=== PATIENT | female | born 1940 | race Caucasian/White ===

== ENCOUNTER 2021-02-25 11:00 | Inpatient (IN) ==
--- NOTE | 2021-02-25 11:16 | Emergency Department Note ---
Impression & Plan Fever, Falls, Confusion, Hypomagnesemia, Cough ED Provider Note Provider: Dany Rogel MD DATE OF SERVICE: 02/25/2021 CHIEF COMPLAINT: Fall, cough HISTORY OF PRESENT ILLNESS: Patient is a 80-year-old female presenting here via ambulance from home today after a fall. Patient states that she had a fall this morning when walking. Patient denies to the best of her knowledge using anticoagulants or antiplatelet agents. She complains of mild headache. She states she fell backwards but does not believe she struck her head. Denies loss of consciousness. Complaining of a little bit of back pain again mild headache. Denies dizziness. May be a little bit of nausea. Patient found by nursing staff to be febrile but she denies any fevers at home. Does report several days of a cough. Denies sick contacts. Denies new pain in the hips, abdomen, or across the front of the chest. Denies difficulty breathing. Patient states that her son helped her up and she is able to walk some since then but felt weak. Patient states she is recently changed doctors and see somebody in town but is unable to remember their name. Patient evidently has recently moved to the area from [place] and is just establishing care with [facility] here and now living with her son. Her son reports some history of CKD. REVIEW OF SYSTEMS: A total of 10 review of systems was obtained and negative except as stated above in the HPI. PAST MEDICAL HISTORY: As noted above MEDICATIONS: Patient denies use of anticoagulants or antiplatelet agents SOCIAL HISTORY: Lives at home with son, reports that she is not a smoker PHYSICAL EXAM: GENERAL: alert and oriented in no acute distress on stretcher although not the best historian regarding her past medical history and quite fatigued in appea sana Head: normocephalic and atraumatic EYES: No injection, discharge or icterus. PERRL NECK: Trachea midline. Supple. ENT: Mucous membranes pink and moist. LUNGS: Airway patent. No retractions. Breath sounds clear anteriorly but occasionally coughing HEART: Regular rate and rhythm. No chest wall tenderness ABDOMEN: Soft and non-tender, without guarding or rebound. BACK: No bilateral flank tenderness. SKIN: Acyanotic, warm, dry EXTREMITIES: Without swelling, tenderness or deformity except for just under a centimeter skin tear abrasion of the right proximal upper leg and some slight ed rohit of the right foot with a healing contusion over the top of the foot approximately 2 cm in size. NEUROLOGICAL: No focal deficits moving all extremities. No aphasia. No facial droop or slurred speech. Sensation to gross touch normal. EK bpm sinus tachycardia. No PVC or PAC. No acute ST segment elevation with some lateral ST flattening. QTc 443. CONTINUOUS CARDIAC MONITORING: was ordered and showed a heart rate of 80s to 100s bpm in normal sinus rhythm to sinus tachycardia GCS 15. Patient's laboratory studies and imaging reviewed. Differential includes Fracture, dislocation, contusion, intra-abdominal, pneumothorax, intrathoracic, intracranial, neurologic, compartment syndrome, rhabdomyolysis, infectious etiology as well as other pathologies. IMPRESSION/MEDICAL DECISION MAKING: Patient found to be febrile upon arrival with a bit of a cough. Not hypoxic. Evidently had a fall this morning. In the reports has had several minimal falls the last several days. Some minimal abrasion of the right anterior leg but soft compartments here and I doubt any compartment syndrome or bony injury. Not having significant focal deficit this time although not the best historian to recent events. Given a little bit of Tylenol here. Given the fall and a complaint of some back and head pain CTs of the head, cervical spine, chest, abdomen pelvis were obtained. Basic blood work and urine sample was ordered. Covid testing was ordered. Covid testing was negative likely. White count of 11.59 noted. Lactate elevated 2.3. Creatinine of 1.6 but unsure of her baseline. Troponin is not elevated. Bilirubin not elevated. Magnesium is low at 1.4 and IV supplementation was ordered. Thyroid function within normal limits. Lipase within normal limits. CT per radiology of the head, cervical spine, chest, and abdomen pelvis without acute traumatic injuries noted. 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 Patient with some distended gallbladder on the CT but benign abdominal exam and doubt cholecystitis with this. Patient not having elevated lipase and doubt this represents a pancreatitis. Several ureteral calculi are noted without hydronephrosis and the patient denies significant pain like prior history of kidney stones. Urine sample to be obtained to exclude UTI. This was not impressive. Patient's son reports that the patient's had multiple falls recently is acting more confused. Updated regarding her testing thus far but given her fevers feel that care here at the hospital given her falls and confusion would be beneficial. I do not feel at this time she suffering from meningitis. Will cover empirically with ceftriaxone given fever and question of some possible significant chills and possibly rigors by description of the son earlier. Again blood cultures have already been obtained. Patient on reassessment much more alert and appears to be expanding well to some fluid hydration and in a pretty control with the Tylenol. She was agreed with the plan for further observation here in the hospital and the hospitalist was contacted. DIAGNOSIS: Falls, confusion, fever, cough, hypomagnesemia DISPOSITION: Hospitalist will evaluate Patient was agreeable with this plan. Past Med/Surg History Medical History (Updated 02/25/21 @ 19:28 by Dany Rogel M.D.) Arthritis Gastric ulcer HTN (hypertension) Hypothyroidism Kidney stone Shoulder pain Social History Smoking Status: Never smoker Second Hand Exposure: No; Do You Dip or Chew Tobacco: No; Tobacco Cessation Education Requested by Patient: No Hx Alcohol Use: No Hx Substance Use: No Preferred Language: Urdu Communication Ability: Impaired Communication Ability Comment: patient is very lethargic at admission Lotus Notes Developer Required: No Beliefs That Will Affect Care: None Current Living Situation: Family Feels Safe at Home: Yes Safety Concerns: Feels Safe At This Time Assistive Devices: Walker Assistive Devices Comment: left at home Allergies Allergies Allergy/AdvReac Type Severity Reaction Status Date / Time Penicillins Allergy Intermediate Hives Unverified 02/25/21 11:30 metronidazole [From Flagyl] Allergy Mild Nausea Unverified 02/25/21 11:31 Home Meds Home Medications Medication Instructions Recorded Confirmed alprazolam 0.5 mg tablet (Xanax) 0.5 mg PO HS PRN 02/25/21 02/25/21 insulin degludec 100 unit/mL (3 0 unit SUBCUT DIRECTED 02/25/21 02/25/21 mL) subcutaneous pen (Tresiba FlexTouch U-100 insulin) levothyroxine 100 mcg tablet 100 mcg PO QAM 02/25/21 02/25/21 metoprolol tartrate 100 mg tablet 100 mg PO BID 02/25/21 02/25/21 omeprazole 40 mg capsule,delayed 40 mg PO DAILY 02/25/21 02/25/21 release valsartan 320 1 tab PO DAILY 02/25/21 02/25/21 mg-hydrochlorothiazide 25 mg tablet Results & Data (ED) Vital Signs Vital Signs - 24 hr 02/25/21 11:06 02/25/21 11:08 02/25/21 11:30 Temperature 38.7 C H Temperature Source Oral Pulse Rate 89 89 93 H Pulse Rate from SpO2 Sensor 93 H Pulse Rhythm Regular Respiratory Rate 29 H 20 25 H Respiratory Effort / Characteristics Non-Labored Spontaneous Respiratory Depth Normal Respiratory Pattern Regular Blood Pressure 158/67 H Blood Pressure Mean 97 Blood Pressure Position Sitting Pulse Oximetry 95 95 Oxygen Delivery Method Room Air Sepsis Recent Fever Within 48 Hours Yes Sepsis New/Unexplained Change in Mental Status Yes Sepsis Action Taken by Nursing Physician Notified 02/25/21 12:06 02/25/21 12:30 02/25/21 13:00 Temperature Temperature Source Pulse Rate 95 H 91 H 89 Pulse Rate from SpO2 Sensor 91 H 89 Pulse Rhythm Respiratory Rate 29 H 25 H Respiratory Effort / Characteristics Respiratory Depth Respiratory Pattern Blood Pressure 125/54 L Blood Pressure Mean 77 Blood Pressure Position Pulse Oximetry 94 92 Oxygen Delivery Method Sepsis Recent Fever Within 48 Hours Sepsis New/Unexplained Change in Mental Status Sepsis Action Taken by Nursing 02/25/21 13:30 02/25/21 14:00 02/25/21 14:30 Temperature Temperature Source Pulse Rate 88 82 Pulse Rate from SpO2 Sensor 89 88 82 Pulse Rhythm Respiratory Rate 15 24 Respiratory Effort / Characteristics Respiratory Depth Respiratory Pattern Blood Pressure 125/59 L Blood Pressure Mean 81 Blood Pressure Position Pulse Oximetry 91 96 95 Oxygen Delivery Method Sepsis Recent Fever Within 48 Hours Sepsis New/Unexplained Change in Mental Status Sepsis Action Taken by Nursing 02/25/21 15:00 Temperature Temperature Source Pulse Rate 83 Pulse Rate from SpO2 Sensor 83 Pulse Rhythm Respiratory Rate 24 Respiratory Effort / Characteristics Respiratory Depth Respiratory Pattern Blood Pressure 138/54 L Blood Pressure Mean 82 Blood Pressure Position Pulse Oximetry 98 Oxygen Delivery Method Sepsis Recent Fever Within 48 Hours Sepsis New/Unexplained Change in Mental Status Sepsis Action Taken by Nursing Laboratory Data Result diagrams: 02/25/21 11:15 02/25/21 11:15 Lab Results 02/25/21 02/25/21 02/25/21 Range/Units 11:15 11:15 11:15 WBC (4.8-10.8) K/uL RBC (4.2-5.4) M/uL Hgb (12.0-16.0) g/dL Hct (37-47) % MCV (80-100) fL MCH (25-34) pg MCHC (32-36) g/dL RDW Std Deviation (36.4-46.3) fL RDW Coeff of Angelica (11.5-14.5) % Plt Count (130-400) K/uL MPV (7.4-10.4) fL Immature Gran % (Auto) % Neut % (Auto) % Lymph % (Auto) % [place] % (Auto) % Eos % (Auto) % Baso % (Auto) % Neut # (Auto) (1.4-6.5) K/uL Lymph # (Auto) (1.2-3.4) K/uL [place] # (Auto) (0.11-0.59) K/uL Eos # (Auto) (0-0.5) K/uL Baso # (Auto) (0-0.2) K/uL Immature Gran # (Auto) (0.00-0.02) K/uL PT 11.0 (9.0-12.0) Seconds INR 1.1 (0.9-1.1) Sodium 138 (136-145) mmol/L Potassium 4.0 (3.5-5.1) mmol/L Chloride 106 (98-107) mmol/L Carbon Dioxide 29 (21-32) mmol/L Anion Gap 3.0 (3-11) BUN 26 H (7-18) mg/dl Creatinine 1.60 H (0.6-1.2) mg/dl Est Cr Clr Drug Dosing 23.4 ml/min Est GFR ( Amer) 35.4 ml/min Est GFR (Non-Af Amer) 30.5 ml/min BUN/Creatinine Ratio 16.1 (10-20) Glucose 138 H (70-99) mg/dl Lactate 2.3 H* (0.4-2.0) mmol/L Calcium 9.5 (8.5-10.1) mg/dl Magnesium 1.4 L (1.8-2.4) mg/dl Total Bilirubin 0.8 (0.2-1) mg/dl AST 48 H (15-37) U/L ALT 23 (12-78) U/L Alkaline Phosphatase 124 H (45-117) U/L Total Creatine Kinase 25 L (26-192) U/L Troponin I < 0.015 (0-0.045) ng/ml Total Protein 8.0 (6.4-8.2) gm/dl Albumin 2.5 L (3.4-5.0) gm/dl Globulin 5.5 H (2.5-4.0) gm/dl Albumin/Globulin Ratio 0.5 L (0.9-2) Lipase (73-393) U/L Procalcitonin (0-0.5) ng/ml TSH 1.900 (0.300-4.500) uIu/ml COVID-19 Eval Order SARS-CoV-2 (PCR) (Negative) 02/25/21 02/25/21 02/25/21 Range/Units 11:15 11:15 11:15 WBC 11.59 H (4.8-10.8) K/uL RBC 4.47 (4.2-5.4) M/uL Hgb 11.5 L (12.0-16.0) g/dL Hct 37.3 (37-47) % MCV 83.4 (80-100) fL MCH 25.7 (25-34) pg MCHC 30.8 L (32-36) g/dL RDW Std Deviation 54.0 H (36.4-46.3) fL RDW Coeff of Angelica 17.6 H (11.5-14.5) % Plt Count 160 (130-400) K/uL MPV 11.8 H (7.4-10.4) fL Immature Gran % (Auto) 0.3 % Neut % (Auto) 81.7 % Lymph % (Auto) 9.0 % [place] % (Auto) 8.0 % Eos % (Auto) 0.9 % Baso % (Auto) 0.1 % Neut # (Auto) 9.48 H (1.4-6.5) K/uL Lymph # (Auto) 1.04 L (1.2-3.4) K/uL [place] # (Auto) 0.93 H (0.11-0.59) K/uL Eos # (Auto) 0.10 (0-0.5) K/uL Baso # (Auto) 0.01 (0-0.2) K/uL Immature Gran # (Auto) 0.03 H (0.00-0.02) K/uL PT (9.0-12.0) Seconds INR (0.9-1.1) Sodium (136-145) mmol/L Potassium (3.5-5.1) mmol/L Chloride (98-107) mmol/L Carbon Dioxide (21-32) mmol/L Anion Gap (3-11) BUN (7-18) mg/dl Creatinine (0.6-1.2) mg/dl Est Cr Clr Drug Dosing ml/min Est GFR ( Amer) ml/min Est GFR (Non-Af Amer) ml/min BUN/Creatinine Ratio (10-20) Glucose (70-99) mg/dl Lactate (0.4-2.0) mmol/L Calcium (8.5-10.1) mg/dl Magnesium (1.8-2.4) mg/dl Total Bilirubin (0.2-1) mg/dl AST (15-37) U/L ALT (12-78) U/L Alkaline Phosphatase (45-117) U/L Total Creatine Kinase (26-192) U/L Troponin I (0-0.045) ng/ml Total Protein (6.4-8.2) gm/dl Albumin (3.4-5.0) gm/dl Globulin (2.5-4.0) gm/dl Albumin/Globulin Ratio (0.9-2) Lipase 187 (73-393) U/L Procalcitonin 0.31 (0-0.5) ng/ml TSH (0.300-4.500) uIu/ml COVID-19 Eval Order SARS-CoV-2 (PCR) (Negative) 02/25/21 02/25/21 02/25/21 Range/Units 11:27 11:27 13:28 WBC (4.8-10.8) K/uL RBC (4.2-5.4) M/uL Hgb (12.0-16.0) g/dL Hct (37-47) % MCV (80-100) fL MCH (25-34) pg MCHC (32-36) g/dL RDW Std Deviation (36.4-46.3) fL RDW Coeff of Angelica (11.5-14.5) % Plt Count (130-400) K/uL MPV (7.4-10.4) fL Immature Gran % (Auto) % Neut % (Auto) % Lymph % (Auto) % [place] % (Auto) % Eos % (Auto) % Baso % (Auto) % Neut # (Auto) (1.4-6.5) K/uL Lymph # (Auto) (1.2-3.4) K/uL [place] # (Auto) (0.11-0.59) K/uL Eos # (Auto) (0-0.5) K/uL Baso # (Auto) (0-0.2) K/uL Immature Gran # (Auto) (0.00-0.02) K/uL PT (9.0-12.0) Seconds INR (0.9-1.1) Sodium (136-145) mmol/L Potassium (3.5-5.1) mmol/L Chloride (98-107) mmol/L Carbon Dioxide (21-32) mmol/L Anion Gap (3-11) BUN (7-18) mg/dl Creatinine (0.6-1.2) mg/dl Est Cr Clr Drug Dosing ml/min Est GFR ( Amer) ml/min Est GFR (Non-Af Amer) ml/min BUN/Creatinine Ratio (10-20) Glucose (70-99) mg/dl Lactate 1.1 (0.4-2.0) mmol/L Calcium (8.5-10.1) mg/dl Magnesium (1.8-2.4) mg/dl Total Bilirubin (0.2-1) mg/dl AST (15-37) U/L ALT (12-78) U/L Alkaline Phosphatase (45-117) U/L Total Creatine Kinase (26-192) U/L Troponin I (0-0.045) ng/ml Total Protein (6.4-8.2) gm/dl Albumin (3.4-5.0) gm/dl Globulin (2.5-4.0) gm/dl Albumin/Globulin Ratio (0.9-2) Lipase (73-393) U/L Procalcitonin (0-0.5) ng/ml TSH (0.300-4.500) uIu/ml COVID-19 Eval Order Covid19 at [facility] SARS-CoV-2 (PCR) NEGATIVE (Negative) Administered Medications Acetaminophen (Acetaminophen 325 Mg Tab) 650 mg PO Q4H PRN PRN Reason: pain/fever Stop: 03/27/21 16:21 Last Admin: 02/25/21 17:31 Dose: 650 mg Documented by: [id number] Lactated Ringer's (Lr) 1,000 mls @ 80 mls/hr IV .[id number] ONE Stop: 02/26/21 04:51 Last Admin: 02/25/21 17:31 Dose: 80 mls/hr Documented by: [id number] Discontinued Medications Sodium Chloride (Nss) 500 mls @ 999 mls/hr IV .Q31M REY Stop: 02/25/21 12:00 Last Infusion: 02/25/21 11:35 Dose: 0 mls/hr Documented by: [id number] Admin: 02/25/21 11:23 Dose: 999 mls/hr Documented by: [id number] Acetaminophen (Ofirmev) 1,000 mg in 100 mls @ 400 mls/hr IV NOW STA Stop: 02/25/21 11:34 Last Infusion: 02/25/21 11:40 Dose: 0 mls/hr Documented by: [id number] Admin: 02/25/21 11:24 Dose: 400 mls/hr Documented by: [id number] Magnesium Sulfate/Dextrose (Magnesium Sulfate / D5w) 1 gm in 100 mls @ 200 mls/hr IV Q30M REY Stop: 02/25/21 14:29 Last Infusion: 02/25/21 14:40 Dose: 200 mls/hr Documented by: [id number] Admin: 02/25/21 14:06 Dose: 200 mls/hr Documented by: [id number] Infusion: 02/25/21 14:06 Dose: 200 mls/hr Documented by: [id number] Admin: 02/25/21 13:38 Dose: 200 mls/hr Documented by: [id number] Lactated Ringer's (Lr) 500 mls @ 999 mls/hr IV .Q31M ONE Stop: 02/25/21 14:34 Last Infusion: 02/25/21 17:33 Dose: 0 mls/hr Documented by: [id number] Admin: 02/25/21 16:25 Dose: 999 mls/hr Documented by: [id number] Ceftriaxone Sodium (Rocephin) 1,000 mg in 50 mls @ 100 mls/hr IV NOW STA Stop: 02/25/21 15:01 Last Infusion: 02/25/21 16:23 Dose: 0 mls/hr Documented by: [id number] Admin: 02/25/21 15:37 Dose: 100 mls/hr Documented by: [id number] Insulin Aspart (Insulin Aspart 100 Units/Ml 3 Ml Pen) 0 units SC ACHS REY Stop: 03/27/21 16:29 Last Admin: 02/25/21 18:19 Dose: Not Given Documented by: [id number] Cosigned by: [id number] Imaging Data Radiologist's Impression: Abdomen/Pelvis CT 02/25/21 11:16 CT SCAN OF THE ABDOMEN AND PELVIS WITHOUT IV CONTRAST CLINICAL HISTORY: Fall. Back pain. Fever. COMPARISON STUDY: No priors. TECHNIQUE: CT scan of the abdomen and pelvis is performed from the lung bases to the proximal femora. Images are reviewed in the axial, sagittal, and coronal planes. IV contrast was not administered for this examination. Note that the examination was performed in significant suboptimal fashion without IV contrast. There is streak artifact from the right arm which could not be elevated above the abdomen. A dose lowering technique was utilized adhering to the principles of ALARA. FINDINGS: Lung bases: The heart is top normal in size and without pericardial effusion. The coronary arteries, aortic valve leaflets, and mitral annulus are densely calcified. There is also calcification of the pericardium. There is bibasilar scarring/atelectasis. No airspace consolidation or pleural effusion is identified. There are scattered calcified granulomas. A small hiatal hernia is noted. Liver: The unenhanced liver is cirrhotic in morphology and heterogeneous in attenuation. There is nodularity of the hepatic surface contour. There is no intrahepatic biliary ductal dilatation. Gallbladder: The gallbladder is distended and there are small calcified gallstones. There is no clear CT evidence of acute cholecystitis. Spleen: The spleen is enlarged measuring 17.1 cm in length. 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 Pancreas: The unenhanced pancreas is moderately atrophic. There is mild infiltration and trace fluid identified around the distal pancreas. Inflammatory change is also identified around the celiac trunk seen on image #113. Adrenal glands: Unremarkable. Kidneys: The unenhanced kidneys demonstrate cortical atrophy and are without hydronephrosis. There are least 2 calculi in the distal right ureter located ju st above the vesicoureteral junction. These are seen on images #339 and #345 and measures up to 8mm. There is no upstream ureteral dilatation or hydronephrosis. There are least 3 additional tiny nonobstructing right renal calculi which measure up to 3 mm. A punctate nonobstructing calculus is seen in the left ureter. There is no evidence of contour deforming renal mass lesion. Abdominal vasculature: The abdominal aorta is normal in course and caliber. Bowel: There is moderate colonic diverticulosis without CT evidence of acute diverticulitis. No bowel obstruction is seen. There is moderate constipation. The appendix is well-visualized and normal. Peritoneum: There is trace perihepatic ascites. No intraperitoneal free air is identified. Lymphadenopathy: None. Pelvic viscera: The bladder, uterus, and adnexa are normal as visualized. Skeletal structures: The skeletal structures are osteopenic. Moderate lumbosacral spondylosis is observed. No lytic or blastic lesions are seen. IMPRESSION: 1. Significantly suboptimal examination without IV contrast. 2. There is no evidence of solid organ injury in the abdomen or pelvis on this unenhanced examination. 3. The liver is cirrhotic in morphology and heterogeneous in attenuation. 4. Splenomegaly and trace perihepatic ascites indicate portal hypertension. 5. Cholelithiasis within a distended gallbladder. There is no clear CT evidence of acute cholecystitis. If there is clinical concern for acute cholecystitis a right upper quadrant ultrasound could be considered. 6. There is nonspecific inflammatory change identified around the celiac axis. There is also minimal infiltration and trace fluid around the distal pancreas. These findings are nonspecific. Correlate with serum amylase/lipase levels for evidence of acute pancreatitis. The patency of the celiac and superior mesenteric arteries cannot be assessed on this examination. 7. There are least 2 distal right ureteral calculi just above the vesicoureteral junction which measure up to 8 mm. There is no upstream ureteral dilatation or hydronephrosis. 8. Additional bilateral nonobstructing calculi are present in both kidneys. 9. Additional findings as above. ACT 112: Negative or not required by law. Electronically signed by: Jason Wong M.D. 02/25/2021 12:[address] 02/25/21 11:16 CT SCAN OF THE CERVICAL SPINE CLINICAL HISTORY: Trauma. Fall. COMPARISON STUDY: No priors. TECHNIQUE: CT scan of the cervical spine is performed from the skull base to the upper thoracic spine. Images are reviewed in the axial, sagittal, and coronal planes. IV contrast was not administered for this examination. A dose lowering technique was utilized adhering to the principles of ALARA. FINDINGS: Skeletal structures: The skeletal structures are osteopenic. There is no evidence of fracture or subluxation involving the cervical spine. Vertebral body height and alignment are maintained. Anterior osteophytes are seen throughout. The odontoid process and lateral masses are intact. The atlantoaxial articulation is preserved noting productive degenerative change. The spinous processes appear intact. There is mild to moderate multilevel cervical spondylosis. Uncovertebral and facet arthropathy contribute to neural foraminal narrowing at several levels. Intervertebral discs: Moderate to advanced disc space narrowing is seen at C5-C6 and C6-C7. Milder disc space narrowing is noted at the remaining cervical level s. Central canal: Posterior disc osteophyte complexes at C3-C4, C5-C6, and C6-C7 likely contribute to acquired compromise of the central canal. Soft tissues: The prevertebral and paraspinous soft tissues are within normal limits. Atrophic. Atherosclerotic calcification is noted in the carotid bulbs. Calvarium: The visualized calvarium at the skull base appears intact. Brain parenchyma: Partially visualized brain parenchyma at the skull base is within normal limits. Sinuses and mastoids: The visualized paranasal sinuses are clear. The mastoid air cells are well pneumatized. Lung apices: Clear as visualized. IMPRESSION: 1. There is no evidence of fracture or subluxation involving the cervical spine. 2. Osteopenia and spondylotic change as above. ACT 112: Negative or not required by law. Electronically signed by: Jason Wong M.D. 02/25/2021 12:[address] 02/25/21 11:16 CT chest diagnostic wo con CLINICAL HISTORY: fall, fever TECHNIQUE: Multidetector row helical CT of the chest was performed. Coronal and sagittal reformations were obtained. Automated dose lowering techniques and/or adjustment according to patient size were utilized for this exam. Comparison: None available at the time of this dictation. FINDINGS: Lungs and pleura: 22 mm fat density lesion is seen in the right lower lobe compatible with hamartoma. Bilateral atelectasis is seen. Heart and pericardium: Heart size is normal. No pericardial effusion. Vessels: Moderate atherosclerotic changes in the aorta and coronary arteries. Mediastinum and kate: Unremarkable. Chest wall and lower neck: Unremarkable. Abdomen: For findings below the diaphragm, please refer to CT of the abdomen dated the same. Bones: Degenerative changes in the thoracic spine. IMPRESSION: No evidence of acute abnormality. Incidental note is made of pulmonary hematoma in the right lower lobe. ACT 112: Negative or not required by law. Electronically signed by: Seng Cleveland M.D. 02/25/2021 12:[address] 02/25/21 11:16 CT SCAN OF THE BRAIN WITHOUT IV CONTRAST CLINICAL HISTORY: Fall. COMPARISON STUDY: No priors. TECHNIQUE: Unenhanced axial CT scan of the brain is performed from the vertex to the skull base. A dose lowering technique was utilized adhering to the principles of ALARA. FINDINGS: Brain parenchyma: There are age-related involutional changes noting mild subcortical and periventricular microangiopathic change. There is no hemorrhage, mass effect, or evidence of acute territorial ischemia by CT criteria. Moore- white matter differentiation is preserved. No extra-axial fluid collection is seen. Ventricles, sulci, cisterns: Prominent secondary to involutional change. Intracranial vasculature: There is atherosclerotic calcification of the cavernous carotid and vertebral arteries. Calvarium: The skeletal structures are osteopenic. No depressed calvarial fracture is identified. Sinuses and mastoids: The visualized paranasal sinuses are clear. The mastoid air cells are well pneumatized. Orbits: The bony orbits are grossly intact. There are bilateral ocular lens implants IMPRESSION: There is no hemorrhage, [place], or evidence of acute territorial ischemia by CT criteria. ACT 112: Negative or not required by law. Electronically signed by: Jason Wong M.D. 02/25/2021 12:09 PM Chest X-Ray 02/25/21 11:17 SINGLE VIEW CHEST CLINICAL HISTORY: Fall. Fever. FINDINGS: An AP, portable, upright chest radiograph is obtained. No prior studies are available for comparison at the time of dictation. The heart is top normal for projection. A 2.2 cm nodular density projects over the right midlung. Scarring/atelectasis is seen at the lung bases. No airspace consolidation or large pleural effusion is identified. No pneumothorax is seen. The skeletal structures are osteopenic. The bony thorax is grossly intact. There is chronic deformity of the right proximal humerus. IMPRESSION: 1. No acute cardiopulmonary abnormality is identified. 2. A 2.2 cm nodular density projects over the right midlung. Nonemergent chest CT is recommended for further assessment. ACT 112: Negative or not required by law. Electronically signed by: Jason Wong M.D. 02/25/2021 12:04 PM Discharge Plan Visit Data Chief Complaint: Weakness Stated Complaint: Weakness, cough ED Provider: Dany Rogel Discharge Problem: Fever, Falls, Confusion, Hypomagnesemia, Cough Patient Disposition: Admitted As Inpatient Discharge Instructions Interventions: ED Discharge Assessment Last Done: 02/25/21 15:51 Discharge Problem: Fever Qualifiers: Fever type: unspecified Qualified Code(s): R50.9 - Fever, unspecified Falls Qualifiers: Encounter type: initial encounter Qualified Code(s): W19.XXXA - Unspecified fall, initial encounter
[2021-02-25] MEDS ORDERED: ACETAMINOPHEN 1,000 MG/100 ML VIAL IV STA (11:20)
[2021-02-25] MEDS ORDERED: SODIUM CHLORIDE 0.9% 500 ML IV SCH (11:30)
[2021-02-25 11:33] LABS: Basophils # (auto) 0.01 K/uL (0-0.2); Basophils % (auto) 0.1 %; Eosinophils % (auto) 0.9 %; Hematocrit (blood only) 37.3 % (37-47); Hemoglobin 11.5 g/dL (12.0-16.0); Immature Granulocytes # (auto) 0.03 K/uL (0.00-0.02); Immature Granulocytes % (auto) 0.3 %; Lymphocytes # (auto) 1.04 K/uL (1.2-3.4); Mean Corpuscular Hemoglobin 25.7 pg (25-34); Mean Corpuscular Hgb Conc 30.8 g/dL (32-36); Mean Corpuscular Volume 83.4 fL (80-100); Mean Platelet Volume 11.8 fL (7.4-10.4); Monocytes # (auto) 0.93 K/uL (0.11-0.59); Neutrophils # (auto) 9.48 K/uL (1.4-6.5); Neutrophils % (auto) 81.7 %; Platelet Count 160 K/uL (130-400); RDW Coefficient of Variation 17.6 % (11.5-14.5); Red Blood Count 4.47 M/uL (4.2-5.4); White Blood Count 11.59 K/uL (4.8-10.8)
[2021-02-25 11:42] LABS: INR 1.1 (0.9-1.1)
[2021-02-25 11:53] LABS: Alanine Aminotransferase 23 U/L (12-78); Albumin Level 2.5 gm/dl (3.4-5.0); Aspartate Aminotransferase 48 U/L (15-37); BUN Creatinine Ratio 16.1 (10-20); Blood Urea Nitrogen 26 mg/dl (7-18); Calcium 9.5 mg/dl (8.5-10.1); Carbon Dioxide 29 mmol/L (21-32); Chloride 106 mmol/L (98-107); Creatinine Clr Calc Pharmacy 23.4 ml/min; Est GFR (African American) 35.4 ml/min; Est GFR (Non-African American) 30.5 ml/min; Glucose 138 mg/dl (70-99); Magnesium 1.4 mg/dl (1.8-2.4); Sodium 138 mmol/L (136-145)
[2021-02-25 12:03] LABS: Albumin Globulin Ratio 0.5 (0.9-2); Alkaline Phosphatase 124 U/L (45-117); Bilirubin,Total 0.8 mg/dl (0.2-1); Creatine Kinase 25 U/L (26-192); Globulin 5.5 gm/dl (2.5-4.0); Troponin I < 0.015 ng/ml (0-0.045)
--- NOTE | 2021-02-25 12:05 | XRay Report ---
SINGLE VIEW CHEST CLINICAL HISTORY: Fall. Fever. FINDINGS: An AP, portable, upright chest radiograph is obtained. No prior studies are available for c omparison at the time of dictation. The heart is top normal for projection. A 2.2 cm nodular density projects over the right midlung. Scarring/atelectasis is seen at the lung bases. No airspace consoli dation or large pleural effusion is identified. No pneumothorax is seen. The skeletal structures are osteopenic. The bony thorax is grossly intact. There is chronic deformity of the right proximal humer us. IMPRESSION: 1. No acute cardiopulmonary abnormality is identified. 2. A 2.2 cm nodular density projects over the right midlung. Nonemergent chest CT is recommended for further assessment. ACT 112: Negative or not required by law. Electronically signed by: Jason Wong M.D. 02/25/2021 12:04 PM
--- NOTE | 2021-02-25 12:10 | CT Scan Report ---
CT SCAN OF THE BRAIN WITHOUT IV CONTRAST CLINICAL HISTORY: Fall. COMPARISON STUDY: No priors. TECHNIQUE: Unenhanced axial CT scan of the brain is performed from the vertex to the skull base. A do se lowering technique was utilized adhering to the principles of ALARA. FINDINGS: Brain parenchyma: There are age-related involutional changes noting mild subcortical and periventric ular microangiopathic change. There is no hemorrhage, mass effect, or evidence of acute territorial i schemia by CT criteria. Moore-white matter differentiation is preserved. No extra-axial fluid collecti on is seen. Ventricles, sulci, cisterns: Prominent secondary to involutional change. Intracranial vasculature: There is atherosclerotic calcification of the cavernous carotid and vertebr al arteries. Calvarium: The skeletal structures are osteopenic. No depressed calvarial fracture is identified. Sinuses and mastoids: The visualized paranasal sinuses are clear. The mastoid air cells are well pneu matized. Orbits: The bony orbits are grossly intact. There are bilateral ocular lens implants IMPRESSION: There is no hemorrhage, mass effect, or evidence of acute territorial ischemia by CT jon oswald. ACT 112: Negative or not required by law. Electronically signed by: Jason Wong M.D. 02/25/2021 12:09 PM
--- NOTE | 2021-02-25 12:14 | CT Scan Report ---
CT SCAN OF THE CERVICAL SPINE CLINICAL HISTORY: Trauma. Fall. COMPARISON STUDY: No priors. TECHNIQUE: CT scan of the cervical spine is performed from the skull base to the upper thoracic spine . Images are reviewed in the axial, sagittal, and coronal planes. IV contrast was not administered fo r this examination. A dose lowering technique was utilized adhering to the principles of ALARA. FINDINGS: Skeletal structures: The skeletal structures are osteopenic. There is no evidence of fracture or subl uxation involving the cervical spine. Vertebral body height and alignment are maintained. Anterior os teophytes are seen throughout. The odontoid process and lateral masses are intact. The atlantoaxial a rticulation is preserved noting productive degenerative change. The spinous processes appear intact. There is mild to moderate multilevel cervical spondylosis. Uncovertebral and facet arthropathy contri bute to neural foraminal narrowing at several levels. Intervertebral discs: Moderate to advanced disc space narrowing is seen at C5-C6 and C6-C7. Milder di sc space narrowing is noted at the remaining cervical levels. Central canal: Posterior disc osteophyte complexes at C3-C4, C5-C6, and C6-C7 likely contribute to ac quired compromise of the central canal. Soft tissues: The prevertebral and paraspinous soft tissues are within normal limits. Atrophic. Atherosclerotic calcification is noted in the carotid bulbs. Calvarium: The visualized calvarium at the skull base appears intact. Brain parenchyma: Partially visualized brain parenchyma at the skull base is within normal limits. Sinuses and mastoids: The visualized paranasal sinuses are clear. The mastoid air cells are well pneu matized. Lung apices: Clear as visualized. IMPRESSION: 1. There is no evidence of fracture or subluxation involving the cervical spine. 2. Osteopenia and spondylotic change as above. ACT 112: Negative or not required by law. Electronically signed by: Jason Wong M.D. 02/25/2021 12:12 PM
--- NOTE | 2021-02-25 12:28 | CT Scan Report ---
CT chest diagnostic wo con CLINICAL HISTORY: fall, fever TECHNIQUE: Multidetector row helical CT of the chest was performed. Coronal and sagittal reformations were obtained. Automated dose lowering techniques and/or adjustment according to patient size were u tilized for this exam. Comparison: None available at the time of this dictation. FINDINGS: Lungs and pleura: 22 mm fat density lesion is seen in the right lower lobe compatible with hamartoma. Bilateral atelectasis is seen. Heart and pericardium: Heart size is normal. No pericardial effusion. Vessels: Moderate atherosclerotic changes in the aorta and coronary arteries. Mediastinum and kate: Unremarkable. Chest wall and lower neck: Unremarkable. Abdomen: For findings below the diaphragm, please refer to CT of the abdomen dated the same. Bones: Degenerative changes in the thoracic spine. IMPRESSION: No evidence of acute abnormality. Incidental note is made of pulmonary hematoma in the right lower lo be. ACT 112: Negative or not required by law. Electronically signed by: Seng Cleveland M.D. 02/25/2021 12:27 PM
--- NOTE | 2021-02-25 12:44 | CT Scan Report ---
CT SCAN OF THE ABDOMEN AND PELVIS WITHOUT IV CONTRAST CLINICAL HISTORY: Fall. Back pain. Fever. COMPARISON STUDY: No priors. TECHNIQUE: CT scan of the abdomen and pelvis is performed from the lung bases to the proximal femora. Images are reviewed in the axial, sagittal, and coronal planes. IV contrast was not administered for this examination. Note that the examination was performed in significant suboptimal fashion without IV contrast. There is streak artifact from the right arm which could not be elevated above the abdome n. A dose lowering technique was utilized adhering to the principles of ALARA. FINDINGS: Lung bases: The heart is top normal in size and without pericardial effusion. The coronary arteries, aortic valve leaflets, and mitral annulus are densely calcified. There is also calcification of the p ericardium. There is bibasilar scarring/atelectasis. No airspace consolidation or pleural effusion is identified. There are scattered calcified granulomas. A small hiatal hernia is noted. Liver: The unenhanced liver is cirrhotic in morphology and heterogeneous in attenuation. There is nod ularity of the hepatic surface contour. There is no intrahepatic biliary ductal dilatation. Gallbladder: The gallbladder is distended and there are small calcified gallstones. There is no clear CT evidence of acute cholecystitis. Spleen: The spleen is enlarged measuring 17.1 cm in length. 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 Pancreas: The unenhanced pancreas is moderately atrophic. There is mild infiltration and trace fluid identified around the distal pancreas. Inflammatory change is also identified around the celiac trunk seen on image #113. Adrenal glands: Unremarkable. Kidneys: The unenhanced kidneys demonstrate cortical atrophy and are without hydronephrosis. There ar e least 2 calculi in the distal right ureter located just above the vesicoureteral junction. These ar e seen on images #339 and #345 and measures up to 8mm. There is no upstream ureteral dilatation or hy dronephrosis. There are least 3 additional tiny nonobstructing right renal calculi which measure up t o 3 mm. A punctate nonobstructing calculus is seen in the left ureter. There is no evidence of contou r deforming renal mass lesion. Abdominal vasculature: The abdominal aorta is normal in course and caliber. Bowel: There is moderate colonic diverticulosis without CT evidence of acute diverticulitis. No bowel obstruction is seen. There is moderate constipation. The appendix is well-visualized and normal. Peritoneum: There is trace perihepatic ascites. No intraperitoneal free air is identified. Lymphadenopathy: None. Pelvic viscera: The bladder, uterus, and adnexa are normal as visualized. Skeletal structures: The skeletal structures are osteopenic. Moderate lumbosacral spondylosis is obse rved. No lytic or blastic lesions are seen. IMPRESSION: 1. Significantly suboptimal examination without IV contrast. 2. There is no evidence of solid organ injury in the abdomen or pelvis on this unenhanced examination . 3. The liver is cirrhotic in morphology and heterogeneous in attenuation. 4. Splenomegaly and trace perihepatic ascites indicate portal hypertension. 5. Cholelithiasis within a distended gallbladder. There is no clear CT evidence of acute cholecystiti s. If there is clinical concern for acute cholecystitis a right upper quadrant ultrasound could be co nsidered. 6. There is nonspecific inflammatory change identified around the celiac axis. There is also minimal infiltration and trace fluid around the distal pancreas. These findings are nonspecific. Correlate wi th serum amylase/lipase levels for evidence of acute pancreatitis. The patency of the celiac and supe rior mesenteric arteries cannot be assessed on this examination. 7. There are least 2 distal right ureteral calculi just above the vesicoureteral junction which measu re up to 8 mm. There is no upstream ureteral dilatation or hydronephrosis. 8. Additional bilateral nonobstructing calculi are present in both kidneys. 9. Additional findings as above. ACT 112: Negative or not required by law. Electronically signed by: Jason Wong M.D. 02/25/2021 12:42 PM
[2021-02-25] MEDS: MAGNESIUM SULFATE / D5W 1 GM/100 ML BAG IV SCH ×2 (13:38→14:06)
[2021-02-25] MEDS ORDERED: LACTATED RINGER'S 500 ML IV ONE (14:04)
[2021-02-25] MEDS ORDERED: cefTRIAXone SODIUM 1,000 MG/50 ML BAG IV STA (14:32)
--- NOTE | 2021-02-25 14:54 | History & Physical Report ---
Date of Service February 25, 2021 Assessment & Plan (1) Kidney stone: Plan: 8mm stone right side- no obstruction or hydro noted on CT scan of abdomen - Urine sent after ceftriaxone administration - febrile on arrival to [facility]- follow trend - Her lethargy and lactate improved after volume - Urology consulted- appreciate assistance - No abdominal pain, WBC at 11.59 NLR 4.5:1, lactate cleared, PCT 0.31 - Continue Rocephin 1GM q 24 hours Later in the evening 1730 patient had increase in fever and HR discussed case with Urology - Patient mentation is back as she presented to [facility] - easily falls asleep with discussion, increase temp, elevated HR- - Defervesced and mentation improved - Patient now with right sided flank abdominal pain with palpation - Urology to evaluate - NPO at this time- last intake was lunch- minimal amount (2) Falls: Plan: Frequent falls at home- again unsure of etiology here - Dementia with functional decline? - Hypotension with BB and infection ? - Systollic murmur- evaluate with ECHO - no focal weakness on exam - PT/OT consult for functional evaluations and needs (3) Abnormal CT scan: Plan: 1. Significantly suboptimal examination without IV contrast. 2. There is no evidence of solid organ injury in the abdomen or pelvis on this unenhanced examination. 3. The liver is cirrhotic in morphology and heterogeneous in attenuation. 4. Splenomegaly and trace perihepatic ascites indicate portal hypertension. 5. Cholelithiasis within a distended gallbladder. There is no clear CT evidence of acute cholecystitis. If there is clinical concern for acute cholecystitis a right upper quadrant ultrasound could be considered. 6. There is nonspecific inflammatory change identified around the celiac axis. There is also minimal infiltration and trace fluid around the distal pancreas. These findings are nonspecific. Correlate with serum amylase/lipase levels for evidence of acute pancreatitis. The patency of the celiac and superior mesenteric arteries cannot be assessed on this examination. 7. There are least 2 distal right ureteral calculi just above the vesicoureteral junction which measure up to 8 mm. There is no upstream ureteral dilatation or hydronephrosis. 8. Additional bilateral nonobstructing calculi are present in both kidneys 9. Additional findings as above Ascites with note of cirrhotic morphology- AST 48 ALT 23, elevated ALKpo4 with normal bili, normal INR, not jaundiced - Consider GI consult with cirrhosis workup either in house or outpatient as clinical picture proceeds - Cholelithiasis without cystitis- RUQ ultrasound also evaluate liver- non tender to epigastrium - No abdominal pain with eating or food intake- lactate normalized- CTA of the abdomen if clinically worsens or in morning - Will transfer to [facility] following uorlogy operative intervention (4) Hypothyroidism: Plan: Continue synthroid dose 100mcg daily - TSH normal (5) HTN (hypertension): Plan: Continue Metoprolol 100mg PO BID - ECHO as above- systolic murmur ? acuity of function (6) Dementia: Plan: ? baseline functional status - continue to follow - PCP cognitive follow up - She has demonstrated decreased mentation with fevers (7) Cardiac murmur, unspecified: Plan: As above- ECG without dynamic changes - no syncope and she denies limitations with activity History of Present Illness Chief Complaint: kidney stone Primary Care Provider: BO PCP 80 YOF with past medical history of : HTN, HLD, Hypothyroidism, DMII (on Triseba), ? iron deficiency anemia, GI ulcerations, arthritis of hands and shouler. Information for this HPI was from patient interview and phone conversation with the son. Patient is poor historian on actual diagnosis and she has was just brought to the area to live with her son following an illness for PNA. She will be seeing [facility] on . Patient was brought into the EMD today for falling, weakness, and confusion. She was reported as lethargic and confused on arrival that responded well to IVF and magnesium replacement. Patient has had ~2-3 falls over the past few weeks. Clarita knutson reports that her fall last week and today were her sliding of the side of the bed on the way to the bathroom. She states that she feels dizzy upon getting up but waits on the edge of the bed to make sure she is stable before she gets up. She denies passing out or losing consciousness with these events or feeling like she is going to pass out. Denies any chest pain, difficulty breathing, abdominal discomfort of fevers or chills. Endorses that last month she was treated for a bad cough and coughing up sputum and was on antibiotics. Unsure of when these finished or course. In the EMD the patient had routine labs done and complete imaging of cervical spine, abdomen, pelvis, routine CXR and ECG. Her labs revealed mild elevation of her WBC, normal HGB, RDW of 17, ACADEMIC INTERN of 1.6 (unsure of baseline), Magnesium 1.4 (replaced), elevated ALkPo4 with normal bili and normal lipase. TSH 1.9. She had blood cultures drawn and was given 1 dose of Ceftriaxone in the EMD. CT scan of the abdomen was consistent with 8mmnephrolithiasis of the right side proximal to UVJ without hydro or obstruction as well as other pathologies- see below. Her urine is being sent now and this is after the Rocephin she received. Upon my evaluation the patient mentation has improved and although unsure of her diagnosis she was able to recall some of her medications. Patient will be admitted to continue her workup and evaluation for CT findings. Urology will be consulted for her nephrolithiasis, Continue ABX and electrolyte replacement. Will obtain ECHO as well for systolic murmur that she is unsure if she has had in the past. Patient has received her COVID vaccine and her COVID test on admission is: NEGATIVE Allergies Allergy/AdvReac Type Severity Reaction Status Date / Time Penicillins Allergy Intermediate Hives Unverified 02/25/21 11:30 metronidazole [From Flagyl] Allergy Mild Nausea Unverified 02/25/21 11:31 Home Medications Medication Instructions Recorded Confirmed Type alprazolam 0.5 mg tablet (Xanax) 0.5 mg PO HS PRN 02/25/21 02/25/21 History insulin degludec 100 unit/mL (3 0 unit SUBCUT DIRECTED 02/25/21 02/25/21 History mL) subcutaneous pen (Tresiba FlexTouch U-100 insulin) levothyroxine 100 mcg tablet 100 mcg PO QAM 02/25/21 02/25/21 History metoprolol tartrate 100 mg tablet 100 mg PO BID 02/25/21 02/25/21 History omeprazole 40 mg capsule,delayed 40 mg PO DAILY 02/25/21 02/25/21 History release valsartan 320 1 tab PO DAILY 02/25/21 02/25/21 History mg-hydrochlorothiazide 25 mg tablet Past Med/Surg History Medical History Arthritis Gastric ulcer HTN (hypertension) Hypothyroidism Kidney stone Shoulder pain Social History Smoking Status: Never smoker Second Hand Exposure: No; Do You Dip or Chew Tobacco: No; Tobacco Cessation Education Requested by Patient: No Hx Alcohol Use: No Hx Substance Use: No Preferred Language: Kenyan Communication Ability: Impaired Communication Ability Comment: patient is very lethargic at admission Medical Director/Head Team Physician Required: No Beliefs That Will Affect Care: None Current Living Situation: Family Feels Safe at Home: Yes Safety Concerns: Feels Safe At This Time Assistive Devices: Oxygen - Continuous Assistive Devices Comment: left at home Review of Systems Review of Systems: REVIEW OF SYSTEMS: Constitutional: (+) cold, No fever, sweats Eyes: No diplopia, no worsening or blurred vision ENT: normal hearing, no trouble swallowing Respiratory: No cough, sputum, dyspnea at rest or on exertion Cardiovascular: No chest pain, tightness or palpitations Abdomen: No pain, nausea, vomiting, diarrhea or constipation Musculoskeletal: (+) joint pain shoulder and hands, NO calf pain, swelling Neurologic: (+) dementia, No weakness, numbness/tingling, or balance problems Psychiatric: No anxiety or depression Skin: No rash or itch Physical Exam Physical Exam: PHYSICAL EXAM: General: awake, alert, no apparent distress- mentation clear and appropriate Head: Normocephalic, atraumatic ENT: PERRLA, EOMI, no pharyngeal exudate, mucous membranes moist Neuro: AAO x 3, speech clear and appropriate, strength intact bilaterally 5/5, sensation intact and equal all extremities and dermatomes, no pronator drift Chest: equal rise and fall of the chest, no accessory muscle use, no heaves or thrills, scattered crackles in the bases, on room air, Cardiac: Regular rate and rhythm, telemetry reviewed-NSR, skin warm dry, cap refill <3 seconds, peripheral pulses +2 no JVD, Grade II systolic murmur, no peripheral edema GI: NABS x 4 quadrants, soft, nontender to palpation, no rebound, guarding or tenderness, no flank pain : Spontaneously voiding, no pain, no CVA tenderness Extremities: Normal inspection, no peripheral edema or erythema, calfs nontender to palpation Psych: Normal mood and affect- likely some baseline dementia Skin: bruise to shoulder and arms Results & Data Results & Data ([facility]) Vital Signs (Past 12 Hours) Vital Signs Temp Pulse Resp BP Pulse Ox 02/25/21 14:00 88 15 125/59 L 96 02/25/21 13:30 91 02/25/21 13:00 89 92 02/25/21 12:30 91 H 25 H 125/54 L 94 02/25/21 12:06 95 H 29 H 02/25/21 11:30 93 H 25 H 02/25/21 11:08 38.7 C H 89 20 158/67 H 95 02/25/21 11:06 89 29 H 95 Laboratory Results Abnormal lab results 02/25/21 02/25/21 02/25/21 Range/Units 11:15 11:15 11:15 WBC 11.59 H (4.8-10.8) K/uL Hgb 11.5 L (12.0-16.0) g/dL MCHC 30.8 L (32-36) g/dL RDW Std Deviation 54.0 H (36.4-46.3) fL RDW Coeff of Angelica 17.6 H (11.5-14.5) % MPV 11.8 H (7.4-10.4) fL Neut # (Auto) 9.48 H (1.4-6.5) K/uL Lymph # (Auto) 1.04 L (1.2-3.4) K/uL Slope # (Auto) 0.93 H (0.11-0.59) K/uL Immature Gran # (Auto) 0.03 H (0.00-0.02) K/uL BUN 26 H (7-18) mg/dl Creatinine 1.60 H (0.6-1.2) mg/dl Glucose 138 H (70-99) mg/dl POC Glucose (70-99) mg/dl Lactate 2.3 H* (0.4-2.0) mmol/L Magnesium 1.4 L (1.8-2.4) mg/dl AST 48 H (15-37) U/L Alkaline Phosphatase 124 H (45-117) U/L Total Creatine Kinase 25 L (26-192) U/L Albumin 2.5 L (3.4-5.0) gm/dl Globulin 5.5 H (2.5-4.0) gm/dl Albumin/Globulin Ratio 0.5 L (0.9-2) Urine Blood (Negative) Urine RBC (Auto) (0-4) /hpf U Epithel Cells (Auto) (0-5) /lpf 02/25/21 02/25/21 Range/Units 15:12 17:29 WBC (4.8-10.8) K/uL Hgb (12.0-16.0) g/dL MCHC (32-36) g/dL RDW Std Deviation (36.4-46.3) fL RDW Coeff of Angelica (11.5-14.5) % MPV (7.4-10.4) fL Neut # (Auto) (1.4-6.5) K/uL Lymph # (Auto) (1.2-3.4) K/uL Slope # (Auto) (0.11-0.59) K/uL Immature Gran # (Auto) (0.00-0.02) K/uL BUN (7-18) mg/dl Creatinine (0.6-1.2) mg/dl Glucose (70-99) mg/dl POC Glucose 129 H (70-99) mg/dl Lactate (0.4-2.0) mmol/L Magnesium (1.8-2.4) mg/dl AST (15-37) U/L Alkaline Phosphatase (45-117) U/L Total Creatine Kinase (26-192) U/L Albumin (3.4-5.0) gm/dl Globulin (2.5-4.0) gm/dl Albumin/Globulin Ratio (0.9-2) Urine Blood 1+ H (Negative) Urine RBC (Auto) 5-10 H (0-4) /hpf U Epithel Cells (Auto) 10-20 H (0-5) /lpf Diagnostic Findings Abdomen/Pelvis CT 02/25/21 11:16 CT SCAN OF THE ABDOMEN AND PELVIS WITHOUT IV CONTRAST CLINICAL HISTORY: Fall. Back pain. Fever. COMPARISON STUDY: No priors. TECHNIQUE: CT scan of the abdomen and pelvis is performed from the lung bases to the proximal femora. Images are reviewed in the axial, sagittal, and coronal planes. IV contrast was not administered for this examination. Note that the examination was performed in significant suboptimal fashion without IV contrast. There is streak artifact from the right arm which could not be elevated above the abdomen. A dose lowering technique was utilized adhering to the principles of ALARA. FINDINGS: Lung bases: The heart is top normal in size and without pericardial effusion. The coronary arteries, aortic valve leaflets, and mitral annulus are densely calcified. There is also calcification of the pericardium. There is bibasilar scarring/atelectasis. No airspace consolidation or pleural effusion is identified. There are scattered calcified granulomas. A small hiatal hernia is noted. Liver: The unenhanced liver is cirrhotic in morphology and heterogeneous in attenuation. There is nodularity of the hepatic surface contour. There is no intrahepatic biliary ductal dilatation. Gallbladder: The gallbladder is distended and there are small calcified gallstones. There is no clear CT evidence of acute cholecystitis. Spleen: The spleen is enlarged measuring 17.1 cm in length. 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 Pancreas: The unenhanced pancreas is moderately atrophic. There is mild infiltration and trace fluid identified around the distal pancreas. Inflammatory change is also identified around the celiac trunk seen on image #113. Adrenal glands: Unremarkable. Kidneys: The unenhanced kidneys demonstrate cortical atrophy and are without hydronephrosis. There are least 2 calculi in the distal right ureter located just above the vesicoureteral junction. These are seen on images #339 and #345 and measures up to 8mm. There is no upstream ureteral dilatation or hydronephrosis. There are least 3 additional tiny nonobstructing right renal calculi which measure up to 3 mm. A punctate nonobstructing calculus is seen in the left ureter. There is no evidence of contour deforming renal mass lesion. Abdominal vasculature: The abdominal aorta is normal in course and caliber. Bowel: There is moderate colonic diverticulosis without CT evidence of acute diverticulitis. No bowel obstruction is seen. There is moderate constipation. T he appendix is well-visualized and normal. Peritoneum: There is trace perihepatic ascites. No intraperitoneal free air is identified. Lymphadenopathy: None. Pelvic viscera: The bladder, uterus, and adnexa are normal as visualized. Skeletal structures: The skeletal structures are osteopenic. Moderate lumbosacral spondylosis is observed. No lytic or blastic lesions are seen. IMPRESSION: 1. Significantly suboptimal examination without IV contrast. 2. There is no evidence of solid organ injury in the abdomen or pelvis on this unenhanced examination. 3. The liver is cirrhotic in morphology and heterogeneous in attenuation. 4. Splenomegaly and trace perihepatic ascites indicate portal hypertension. 5. Cholelithiasis within a distended gallbladder. There is no clear CT evidence of acute cholecystitis. If there is clinical concern for acute cholecystitis a right upper quadrant ultrasound could be considered. 6. There is nonspecific inflammatory change identified around the celiac axis. There is also minimal infiltration and trace fluid around the distal pancreas. These findings are nonspecific. Correlate with serum amylase/lipase levels for evidence of acute pancreatitis. The patency of the celiac and superior mesenteric arteries cannot be assessed on this examination. 7. There are least 2 distal right ureteral calculi just above the vesicoureteral junction which measure up to 8 mm. There is no upstream ureteral dilatation or hydronephrosis. 8. Additional bilateral nonobstructing calculi are present in both kidneys. 9. Additional findings as above. ACT 112: Negative or not required by law. Electronically signed by: Jason Wong M.D. 02/25/2021 12:[address] 02/25/21 11:16 CT SCAN OF THE CERVICAL SPINE CLINICAL HISTORY: Trauma. Fall. COMPARISON STUDY: No priors. TECHNIQUE: CT scan of the cervical spine is performed from the skull base to the upper thoracic spine. Images are reviewed in the axial, sagittal, and coronal planes. IV contrast was not administered for this examination. A dose lowering technique was utilized adhering to the principles of ALARA. FINDINGS: Skeletal structures: The skeletal structures are osteopenic. There is no evidence of fracture or subluxation involving the cervical spine. Vertebral body height and alignment are maintained. Anterior osteophytes are seen throughout. The odontoid process and lateral masses are intact. The atlantoaxial articulation is preserved noting productive degenerative change. The spinous processes appear intact. There is mild to moderate multilevel cervical spondylosis. Uncovertebral and facet arthropathy contribute to neural foraminal narrowing at several levels. Intervertebral discs: Moderate to advanced disc space narrowing is seen at C5-C6 and C6-C7. Milder disc space narrowing is noted at the remaining cervical levels. Central canal: Posterior disc osteophyte complexes at C3-C4, C5-C6, and C6-C7 likely contribute to acquired compromise of the central canal. Soft tissues: The prevertebral and paraspinous soft tissues are within normal limits. Atrophic. Atherosclerotic calcification is noted in the carotid bulbs. Calvarium: The visualized calvarium at the skull base appears intact. Brain parenchyma: Partially visualized brain parenchyma at the skull base is within normal limits. Sinuses and mastoids: The visualized paranasal sinuses are clear. The mastoid air cells are well pneumatized. Lung apices: Clear as visualized. IMPRESSION: 1. There is no evidence of fracture or subluxation involving the cervical spine. 2. Osteopenia and spondylotic change as above. ACT 112: Negative or not required by law. Electronically signed by: Jason Wong M.D. 02/25/2021 12:[address] 02/25/21 11:16 CT chest diagnostic wo con CLINICAL HISTORY: fall, fever TECHNIQUE: Multidetector row helical CT of the chest was performed. Coronal and sagittal reformations were obtained. Automated dose lowering techniques and/or adjustment according to patient size were utilized for this exam. Comparison: None available at the time of this dictation. FINDINGS: Lungs and pleura: 22 mm fat density lesion is seen in the right lower lobe compatible with hamartoma. Bilateral atelectasis is seen. Heart and pericardium: Heart size is normal. No pericardial effusion. Vessels: Moderate atherosclerotic changes in the aorta and coronary arteries. Mediastinum and kate: Unremarkable. Chest wall and lower neck: Unremarkable. Abdomen: For findings below the diaphragm, please refer to CT of the abdomen dated the same. Bones: Degenerative changes in the thoracic spine. IMPRESSION: No evidence of acute abnormality. Incidental note is made of pulmonary hematoma in the right lower lobe. ACT 112: Negative or not required by law. Electronically signed by: Seng Cleveland M.D. 02/25/2021 12:[address] 02/25/21 11:16 CT SCAN OF THE BRAIN WITHOUT IV CONTRAST CLINICAL HISTORY: Fall. COMPARISON STUDY: No priors. TECHNIQUE: Unenhanced axial CT scan of the brain is performed from the vertex to the skull base. A dose lowering technique was utilized adhering to the principles of ALARA. FINDINGS: Brain parenchyma: There are age-related involutional changes noting mild subcortical and periventricular microangiopathic change. There is no hemorrhage, mass effect, or evidence of acute territorial ischemia by CT criteria. Moore- white matter differentiation is preserved. No extra-axial fluid collection is seen. Ventricles, sulci, cisterns: Prominent secondary to involutional change. Intracranial vasculature: There is atherosclerotic calcification of the cavernous carotid and vertebral arteries. Calvarium: The skeletal structures are osteopenic. No depressed calvarial fracture is identified. Sinuses and mastoids: The visualized paranasal sinuses are clear. The mastoid air cells are well pneumatized. Orbits: The bony orbits are grossly intact. There are bilateral ocular lens implants IMPRESSION: There is no hemorrhage, mass effect, or evidence of acute territ orial ischemia by CT criteria. ACT 112: Negative or not required by law. Electronically signed by: Jason Wong M.D. 02/25/2021 12:09 PM Chest X-Ray 02/25/21 11:17 SINGLE VIEW CHEST CLINICAL HISTORY: Fall. Fever. FINDINGS: An AP, portable, upright chest radiograph is obtained. No prior studies are available for comparison at the time of dictation. The heart is top normal for projection. A 2.2 cm nodular density projects over the right midlung. Scarring/atelectasis is seen at the lung bases. No airspace consolidation or large pleural effusion is identified. No pneumothorax is seen. The skeletal structures are osteopenic. The bony thorax is grossly intact. There is chronic deformity of the right proximal humerus. IMPRESSION: 1. No acute cardiopulmonary abnormality is identified. 2. A 2.2 cm nodular density projects over the right midlung. Nonemergent chest CT is recommended for further assessment. ACT 112: Negative or not required by law. Electronically signed by: Jason Wong M.D. 02/25/2021 12:04 PM Medications Administered Acetaminophen (Acetaminophen 325 Mg Tab) 650 mg PO Q4H PRN PRN Reason: pain/fever Stop: 03/27/21 16:21 Last Admin: 02/25/21 17:31 Dose: 650 mg Documented by: [id number] Lactated Ringer's (Lr) 1,000 mls @ 80 mls/hr IV .[id number] ONE Stop: 02/26/21 04:51 Last Admin: 02/25/21 17:31 Dose: 80 mls/hr Documented by: [id number] Discontinued Medications Sodium Chloride (Nss) 500 mls @ 999 mls/hr IV .Q31M REY Stop: 02/25/21 12:00 Last Infusion: 02/25/21 11:35 Dose: 0 mls/hr Documented by: [id number] Admin: 02/25/21 11:23 Dose: 999 mls/hr Documented by: [id number] Acetaminophen (Ofirmev) 1,000 mg in 100 mls @ 400 mls/hr IV NOW STA Stop: 02/25/21 11:34 Last Infusion: 02/25/21 11:40 Dose: 0 mls/hr Documented by: [id number] Admin: 02/25/21 11:24 Dose: 400 mls/hr Documented by: [id number] Magnesium Sulfate/Dextrose (Magnesium Sulfate / D5w) 1 gm in 100 mls @ 200 mls/hr IV Q30M REY Stop: 02/25/21 14:29 Last Infusion: 02/25/21 14:40 Dose: 200 mls/hr Documented by: [id number] Admin: 02/25/21 14:06 Dose: 200 mls/hr Documented by: [id number] Infusion: 02/25/21 14:06 Dose: 200 mls/hr Documented by: [id number] Admin: 02/25/21 13:38 Dose: 200 mls/hr Documented by: [id number] Lactated Ringer's (Lr) 500 mls @ 999 mls/hr IV .Q31M ONE Stop: 02/25/21 14:34 Last Infusion: 02/25/21 17:33 Dose: 0 mls/hr Documented by: [id number] Admin: 02/25/21 16:25 Dose: 999 mls/hr Documented by: [id number] Ceftriaxone Sodium (Rocephin) 1,000 mg in 50 mls @ 100 mls/hr IV NOW STA Stop: 02/25/21 15:01 Last Infusion: 02/25/21 16:23 Dose: 0 mls/hr Documented by: [id number] Admin: 02/25/21 15:37 Dose: 100 mls/hr Documented by: [id number] Insulin Aspart (Insulin Aspart 100 Units/Ml 3 Ml Pen) 0 units SC ACHS REY Stop: 03/27/21 16:29 Last Admin: 02/25/21 18:19 Dose: Not Given Documented by: [id number] Cosigned by: [id number] Home Medications alprazolam 0.5 mg tablet (Xanax) 0.5 mg PO HS PRN 02/25/21 [History Confirmed 02/25/21] insulin degludec 100 unit/mL (3 mL) subcutaneous pen (Tresiba FlexTouch U-100 insulin) 0 unit SUBCUT DIRECTED 02/25/21 [History Confirmed 02/25/21] levothyroxine 100 mcg tablet 100 mcg PO QAM 02/25/21 [History Confirmed 02/25/21] metoprolol tartrate 100 mg tablet 100 mg PO BID 02/25/21 [History Confirmed 02/25/21] omeprazole 40 mg capsule,delayed release 40 mg PO DAILY 02/25/21 [History Confirmed 02/25/21] valsartan 320 mg-hydrochlorothiazide 25 mg tablet 1 tab PO DAILY 02/25/21 [History Confirmed 02/25/21] Active Medications Acetaminophen (Acetaminophen 325 Mg Tab) 650 mg PO Q4H PRN PRN Reason: pain/fever Stop: 03/27/21 16:21 Last Admin: 02/25/21 17:31 Dose: 650 mg Documented by: Alprazolam (Alprazolam 0.5 Mg Tablet) 0.5 mg PO HS PRN PRN Reason: Anxiety Stop: 03/27/21 16:21 Dextrose (Dextrose 50% 50 Ml Syringe) 25 - 50 ml IV UD PRN; Protocol PRN Reason: Hypoglycemia Protocol Stop: 03/27/21 16:21 Glucagon (Glucagon For Inj 1 Mg Vial) 1 mg SQ UD PRN; Protocol PRN Reason: Hypoglycemia Protocol Stop: 03/27/21 16:21 Glucose (Glucose 10 Tabs/Tube) 4 - 8 tabs PO UD PRN; Protocol PRN Reason: Hypoglycemia Protocol Stop: 03/27/21 16:21 Glucose (Glucose 40% Gel 15 Gm Tube) 15 - 30 gm PO UD PRN; Protocol PRN Reason: Hypoglycemia Protocol Stop: 03/27/21 16:21 Heparin Sodium (Porcine) (Heparin Sod 5,000 Unit/0.5 Ml Vial) 5,000 units SQ Q12 REY Stop: 03/27/21 20:59 Hydrochlorothiazide (Hydrochlorothiazide 25 Mg Tab) 25 mg PO DAILY REY Stop: 03/28/21 08:59 Lactated Ringer's (Lr) 1,000 mls @ 80 mls/hr IV .[id number] ONE Stop: 02/26/21 04:51 Last Admin: 02/25/21 17:31 Dose: 80 mls/hr Documented by: Ceftriaxone Sodium 1,000 mg/ (Dextrose) 50 mls @ 100 mls/hr IV Q24H REY; Protocol Stop: 03/01/21 16:29 Insulin Aspart (Insulin Aspart 100 Units/Ml 3 Ml Pen) 0 units SC Q6 REY Stop: 03/28/21 00:00 Levothyroxine Sodium (Levothyroxine Sodium 100 Mcg Tablet) 100 mcg PO DAILYBB REY Stop: 03/28/21 06:29 Metoprolol Tartrate (Metoprolol Tartrate 100 Mg Tab) 100 mg PO BID REY Stop: 03/27/21 20:59 Miscellaneous (Carbohydrates For Hypoglycemia ) 15 - 30 gm PO UD PRN PRN Reason: Hypoglycemia Protocol Stop: 03/27/21 16:21 Ondansetron HCl (Ondansetron Inj 2 Mg/Ml 2 Ml Vial) 4 mg IV Q6H PRN PRN Reason: Nausea Stop: 03/27/21 16:21 Pantoprazole Sodium (Pantoprazole 40 Mg Tab) 40 mg PO DAILY REY Stop: 03/28/21 08:59 Valsartan (Valsartan 80 Mg Tab) 320 mg PO DAILY [facility] Stop: 03/28/21 08:59 ECG Additional Comments: Sinus tachycardia Inferior infarct , age undetermined Abnormal ECG No previous ECGs available Code Status & VTE Plan Code Status CODE: FULL VTE: SCDS, hold on chemoprophylaxis until invasive interventions become more clear Supervising Physician Co-Signing Physician Notes 80 yo female is seen and examined at bedside. During face to face encounter with patient, obtained a history and physical examination. Discussed case with LORE Tan and answered all of the patient's questions. I reviewed above note and agree with it. Patient is coming in with ureter stone likely causing post obstructive renal failure. Patient will benefit from getting a stent placed. Urology consult placed. will place on antibiotics. PG Care Time/CCT Total # of Minutes Spent Total Time Spent with Patient: Total time spent is greater than 50% in coordination of care (as documented) at patient's floor/unit and/or counseling patient: Coding Level of Care Code 21571 Initial Inpt Care Lvl 3 Diagnoses Kidney stone N20.[address] scan R93.89 Hypothyroidism E03.9 HTN (hypertension) I10 Dementia F03.90 Cardiac murmur, unspecified R01.1
[2021-02-25 15:30] LABS: Appearance Urine Clear (Clear); Bacteria Urine Automated Negative (Negative); Bilirubin Urine Negative (Negative); Blood Urine 1+ (Negative); Color Urine Yellow; Glucose Urine UA Negative (Negative); Ketones Urine Negative (Negative); Leukocyte Esterase Urine Negative (Negative); Nitrite Urine Negative (Negative); Protein Urine Negative (Negative); Specific Gravity Urine 1.017 (1.000-1.030); Urobilinogen Urine Negative (Negative)
[2021-02-25] MEDS ORDERED: GLUCAGON FOR INJ 1 MG VIAL SQ PRN (16:22)
[2021-02-25] MEDS ORDERED: CARBOHYDRATES FOR HYPOGLYCEMIA PO PRN (16:22)
[2021-02-25] MEDS ORDERED: LACTATED RINGER'S 1,000 ML IV ONE (16:22)
[2021-02-25] MEDS ORDERED: ONDANSETRON INJ 2 MG/ML 2 ML VIAL IV PRN ×2 (16:22→20:40)
[2021-02-25] MEDS ORDERED: ALPRAZolam 0.5 MG TABLET PO PRN (16:22)
[2021-02-25] MEDS ORDERED: GLUCOSE 40% GEL 15 GM TUBE PO PRN (16:22)
[2021-02-25] MEDS ORDERED: DEXTROSE 50% 50 ML SYRINGE IV PRN (16:22)
[2021-02-25] MEDS ORDERED: GLUCOSE 10 TABS/TUBE PO PRN (16:22)
[2021-02-25] MEDS ORDERED: INSULIN ASPART 100 UNITS/ML 3 ML PEN SC SCH (16:30)
[2021-02-25] MEDS: ACETAMINOPHEN 325 MG TAB PO PRN (17:31)
[2021-02-25] MEDS ORDERED: Nursing to Pharmacy Communication SCH ×2 (18:30→23:30)
--- NOTE | 2021-02-25 19:48 | Urology Consultation ---
Date of Consultation February 25, 2021 Assessment & Plan (1) Kidney stone: (2) Fever: I had a long discussion with the patient and with her son regarding the findings of the CT scan and her overall clinical picture. Overall her urinalysis is not suspicious for infection, however there is a possibility that an infection could be trapped behind the obstructing right ureteral stone. In the absence of any other explanation for her cyclic fevers, waxing and waning mental status, we discussed proceeding to the operating room for cystoscopy, right retrograde pyelogram and right ureteral stent placement. We reviewed the risks of the procedure, including bleeding, infection, injury to urinary tract, need for additional treatment of the stone, as well as anticipated benefits and alternatives. She and her son expressed understanding and would like to proceed with right ureteral stent placement. PLAN: Continue n.p.o. To OR for cystoscopy, right retrograde pyelogram, right ureteral stent placement Continue antibiotics History of Present Illness Reason for Consultation: fevers, right ureterolithiasis, altered mental status. Attending Physician: Abran Gutierrez History of Present Illness This is a 80-year-old female who presented to the hospital after a fall on 02/25/2021. Per report, she has had multiple falls over the past couple weeks. She was incidentally found to be febrile in the hospital with waxing and waning mental status. Work-up has not revealed any obvious source of her infection, but did note a right-sided ureteral stone, approximately 8 mm in diameter, which appeared to be obstructing. During her more lucid moments she endorsed right- sided flank pain and some nausea. Urinalysis was performed, and was notable for only a small amount of blood. Over the afternoon she has been intermittently febrile and tachycardic. She reports that she has a history of kidney stones, although denies ever needing surgery for these. She also reports having history of UTIs, associated with symptoms. During the remainder of our discussion, she could only provide limited historical details. Allergies Allergy/AdvReac Type Severity Reaction Status Date / Time Penicillins Allergy Intermediate Hives Unverified 02/25/21 11:30 metronidazole [From Flagyl] Allergy Mild Nausea Unverified 02/25/21 11:31 Home Medications Medication Instructions Recorded Confirmed Type alprazolam 0.5 mg tablet (Xanax) 0.5 mg PO HS PRN 02/25/21 02/25/21 History insulin degludec 100 unit/mL (3 0 unit SUBCUT DIRECTED 02/25/21 02/25/21 History mL) subcutaneous pen (Tresiba FlexTouch U-100 insulin) levothyroxine 100 mcg tablet 100 mcg PO QAM 02/25/21 02/25/21 History metoprolol tartrate 100 mg tablet 100 mg PO BID 02/25/21 02/25/21 History omeprazole 40 mg capsule,delayed 40 mg PO DAILY 02/25/21 02/25/21 History release valsartan 320 1 tab PO DAILY 02/25/21 02/25/21 History mg-hydrochlorothiazide 25 mg tablet Patient History Medical History Arthritis Gastric ulcer HTN (hypertension) Hypothyroidism Kidney stone Shoulder pain Social History Smoking Status: Never smoker Second Hand Exposure: No; Do You Dip or Chew Tobacco: No; Tobacco Cessation Education Requested by Patient: No Hx Alcohol Use: No Hx Substance Use: No Preferred Language: Maori Communication Ability: Impaired Communication Ability Comment: patient is very lethargic at admission 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 Instrument Maker Or Repairer 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: No Beliefs That Will Affect Care: None Current Living Situation: Family Feels Safe at Home: Yes Safety Concerns: Feels Safe At This Time Assistive Devices: Walker Assistive Devices Comment: left at home Review of Systems Review of Systems: Patient only able to participate in limited review of systems due to mental status Constitutional: Intermittent fevers, Genitourinary: Some recent flank pain Neurologic: Recent falls, unclear as to the story behind them Physical Exam Constitutional: well developed and well nourished Diaphoretic Eyes: + anicteric sclerae; pupils not irregular Respiratory: normal respiratory effort and + cough Cardiovascular: Well-perfused Gastrointestinal (Abdomen): Inspection/Auscultation: abdomen normal to inspection; abdomen not distended Percussion/Palpation: abdomen soft; abdomen nontender Musculoskeletal: Extremities: extremities normal to inspection Skin: normal turgor; no rashes and no lesions Neurologic: moves all extremities and awake Psychiatric: Alert but forgetful, difficulty with word finding at times, difficulty with maintaining a conversation Results & Data ([facility]) Vital Signs (Past 12 Hours) Vital Signs Temp Pulse Pulse Resp BP BP BP 10/20/21 18:17 37.5 C 02/25/21 17:41 38.3 C H 103 H 22 147/65 H 02/25/21 16:22 38.2 C H 103 H 24 147/64 H 02/25/21 15:42 37.6 C H 02/25/21 15:00 83 24 138/54 L 02/25/21 14:30 82 24 02/25/21 14:00 88 15 125/59 L 02/25/21 13:30 02/25/21 13:00 89 02/25/21 12:30 91 H 25 H 125/54 L 02/25/21 12:06 95 H 29 H 02/25/21 11:30 93 H 25 H 02/25/21 11:08 38.7 C H 89 20 158/67 H 02/25/21 11:06 89 29 H Pulse Ox 02/25/21 18:17 96 02/25/21 17:41 90 02/25/21 16:22 97 02/25/21 15:42 02/25/21 15:00 98 02/25/21 14:30 95 02/25/21 14:00 96 02/25/21 13:30 91 02/25/21 13:00 92 02/25/21 12:30 94 02/25/21 12:06 02/25/21 11:30 02/25/21 11:08 95 02/25/21 11:06 95 Laboratory Results Labs notable for mild leukocytosis (11.6), elevated creatinine (1.6, although baseline is unclear), lactate initially 2.3, but has decreased to 1.1. Urinalysis notable for 1+ blood, negative for nitrites and leukocyte esterase. Diagnostic Findings CT scan abdomen/pelvis, 02/25/21: IMPRESSION: 1. Significantly suboptimal examination without IV contrast. 2. There is no evidence of solid organ injury in the abdomen or pelvis on this unenhanced examination. 3. The liver is cirrhotic in morphology and heterogeneous in attenuation. 4. Splenomegaly and trace perihepatic ascites indicate portal hypertension. 5. Cholelithiasis within a distended gallbladder. There is no clear CT evidence of acute cholecystitis. If there is clinical concern for acute cholecystitis a right upper quadrant ultrasound could be considered. 6. There is nonspecific inflammatory change identified around the celiac axis. There is also minimal infiltration and trace fluid around the distal pancreas. These findings are nonspecific. Correlate with serum amylase/lipase levels for evidence of acute pancreatitis. The patency of the celiac and superior mesenteric arteries cannot be assessed on this examination. 7. There are least 2 distal right ureteral calculi just above the vesicoureteral junction which measure up to 8 mm. There is no upstream ureteral dilatation or hydronephrosis. 8. Additional bilateral nonobstructing calculi are present in both kidneys. 9. Additional findings as above. PG Care Time/CCT Total # of Minutes Spent Total Time Spent: 60 Total Time Spent with Patient: Total time spent is greater than 50% in coordination of care (as documented) at patient's floor/unit and/or counseling patient: Coding Level of Care Code 13944 Initial Inpt Care Lvl 2 Diagnoses Kidney stone N20.0 Fever R50.9 Fever type: unspecified (1) Fever Fever type: unspecified Qualified Code(s): R50.9 - Fever, unspecified
[2021-02-25] MEDS ORDERED: PROPOFOL IV EMULSION 10 MG/ML 20 ML VIAL IV ONE (20:24)
[2021-02-25] MEDS ORDERED: fentaNYL citrate 100 MCG/2 ML VIAL ONE (20:25)
[2021-02-25] MEDS ORDERED: MIDAZOLAM HCL 1 MG/ML 2ML VIAL ONE (20:25)
[2021-02-25] MEDS ORDERED: ePHEDrine sulfate 50 MG/ML AMP IV PRN (20:40)
[2021-02-25] MEDS ORDERED: fentaNYL citrate 100 MCG/2 ML VIAL IV PRN (20:40)
[2021-02-25] MEDS ORDERED: ATROPINE SULFATE 0.1 MG/ML 10ML SYR IV PRN (20:40)
[2021-02-25] MEDS ORDERED: HYDROmorphone INJ 2 MG/ML SYR/VIAL IV PRN (20:40)
--- NOTE | 2021-02-25 20:40 | Anesthesiology Consultation ---
Date of Service February 25, 2021 Assessment & Plan ASA [id number] Proposed Anesthesia Anesthesia Type: General Risk / Benefits Reviewed With: PT / POA / Parent / Guardian, Accepts Plan and Informed Consent Obtained History Surgery Operation Date: 02/25/21 08:30 Proposed Procedures p Cystoscopy, Retrograde Pyelogram, Right Stent Insertion(Right) - Daren Silveira MD Height/Weight Height: 5 ft Weight: 59.4 kg Allergies Allergy/AdvReac Type Severity Reaction Status Date / Time Penicillins Allergy Intermediate Hives Unverified 02/25/21 11:30 metronidazole [From Flagyl] Allergy Mild Nausea Unverified 02/25/21 11:31 Medications Home Medications Medication Instructions Recorded Confirmed Last Taken alprazolam 0.5 mg tablet (Xanax) 0.5 mg PO HS PRN 02/25/21 02/25/21 Unknown insulin degludec 100 unit/mL (3 0 unit SUBCUT DIRECTED 02/25/21 02/25/21 Unknown mL) subcutaneous pen (Tresiba FlexTouch U-100 insulin) levothyroxine 100 mcg tablet 100 mcg PO QAM 02/25/21 02/25/21 Unknown metoprolol tartrate 100 mg tablet 100 mg PO BID 02/25/21 02/25/21 Unknown omeprazole 40 mg capsule,delayed 40 mg PO DAILY 02/25/21 02/25/21 Unknown release valsartan 320 1 tab PO DAILY 02/25/21 02/25/21 Unknown mg-hydrochlorothiazide 25 mg tablet Active Medications Generic Name Dose Route Start Last Admin Trade Name Freq PRN Reason Stop Dose Admin Acetaminophen 650 mg 02/25/21 16:22 02/25/21 17:31 Acetaminophen 325 Mg Tab PO 03/27/21 16:21 650 mg Q4H PRN Administration pain/fever Lactated Ringer's 1,000 mls @ 80 mls/hr 02/25/21 16:22 02/25/21 17:31 Lr IV 02/26/21 04:51 80 mls/hr .[id number] ONE Administration NPO Date Last Intake of Fluids: 02/24/21 Date Last Intake of Solids: 02/24/21 Past Medical History Medical History Arthritis Gastric ulcer HTN (hypertension) Hypothyroidism Kidney stone Shoulder pain Exercise / Class Metabolic Activity II 4-5 Yardwork/Stairs/Walk up hill Past Anesthesia History No Hx of Anesthesia Complications and No Family Hx of Anesthesia Complications History of PONV No Hx of PONV and No Hx of Motion Sickness Social History Smoking Status: Never smoker Do You Dip or Chew Tobacco: No Hx Alcohol Use: No Hx Substance Use: No substance use type: does not use Review of Systems denies fever/cough/ colds/ chest pain/ SOB/ MARTÍN denies MARTÍN Physical Exam Vital Signs Last Vital Signs Temp 37.6 C H 02/25/21 19:44 Pulse 105 H 02/25/21 19:44 Resp 22 02/25/21 19:44 BP 118/61 02/25/21 19:44 Pulse Ox 95 02/25/21 19:44 ENMT Mouth: no TMJ abnormality and no dentition abnormality Thyromental Distance: > or= 3.5 Finger Breadths Mallampati Class: II Neck neck extension not limited Respiratory normal respiratory effort; no respiratory distress Auscultation: lungs clear to auscultation bilaterally Cardiovascular Rate/Rhythm: regular rate and regular rhythm Neurologic moves all extremities Psychiatric Orientation: alert and oriented x 3 Testing Laboratory Results 02/25/21 11:15 02/25/21 11:15 PT 11.0 Seconds (9.0-12.0) 02/25/21 11:15 INR 1.1 (0.9-1.1) 02/25/21 11:15 Urine Color Yellow 02/25/21 15:12 Urine Appearance Clear (Clear) 02/25/21 15:12 Urine pH 6.0 (4.5-7.5) 02/25/21 15:12 Ur Specific [place] 1.017 (1.000-1.030) 02/25/21 15:12 Urine Protein Negative (Negative) 02/25/21 15:12 Urine Glucose (UA) Negative (Negative) 02/25/21 15:12 Urine Ketones Negative (Negative) 02/25/21 15:12 Urine Nitrite Negative (Negative) 02/25/21 15:12 Ur Leukocyte Esterase Negative (Negative) 02/25/21 15:12 Urine WBC (Auto) 1-5 /hpf (0-5) 02/25/21 15:12 Urine RBC (Auto) 5-10 /hpf (0-4) H 02/25/21 15:12 U Hyaline Cast (Auto) 1-5 /lpf (0-5) 02/25/21 15:12 U Epithel Cells (Auto) 10-20 /lpf (0-5) H 02/25/21 15:12 Urine Bacteria (Auto) Negative (Negative) 02/25/21 15:12 02/25/21 17:29 POC Glucose 129 H
[2021-02-25] MEDS ORDERED: PHENYLEPHRINE 100MCG/ML 5ML SYR ONE (20:53)
[2021-02-25] MEDS ORDERED: ePHEDrine sulfate 50 MG/ML SYR ONE (21:01)
[2021-02-25] MEDS ORDERED: DIATRIZOATE MEGLUMINE 30% 100ML VIAL INSTIL ONE (21:03)
--- NOTE | 2021-02-25 21:14 | Operative Report ---
PG Post Operative Report Pre & Post Diagnosis Operation Date: 02/25/21 08:30 Pre-Op Diagnosis: Right ureteral stone, fever Post-Op Diagnosis: Right ureteral stone, fever I identified the patient and participated in the time-out.: Yes Procedure Operation Date: 02/25/21 08:30 Actual Procedures p Cystoscopy, Retrograde Pyelogram, Right Stent Insertion(Right) - Daren Silveira MD Surgeon Daren Silveira MD Welder Explosion none Estimated Blood Loss 0 Findings Consistent with Post-Op Diagnosis Successful right ureteral stent placement Specimens None Drains 6 Vincentian by 24 cm double-J ureteral stent in the right ureter Anesthesia Type General Complications none Disposition Disposition: Recovery Room Indications This is a 80-year-old female who presented to the hospital on 02/25/2021 with recent falls. Over the course of the day she was noted to have fevers and waxing and waning mental status. Work-up did not indicate an obvious source of infection, but did demonstrate a large, distal right ureteral stone. Although urinalysis was not overtly concerning for infection, due to possibility that there was infection resting up behind the stone, she presents to the OR today for right ureteral stent placement to decompress her right kidney. Description of Procedure The patient was identified in the holding area and informed consent was confirmed. They were marked on the right side, then were taken to the operating room where general anesthesia was initiated. They were placed in the dorsal lithotomy position with all pressure points appropriately padded. They were prepped and draped in the usual sterile fashion and a preoperative timeout was performed. A well-lubricated cystoscope was inserted per urethra and panendoscopy was performed. Her urethra and bladder were normal with no tumors or stones appreciated. The ureteral orifices were in orthotopic position bilaterally. The right ureteral orifice was identified and cannulated with a 5 Vincentian open- ended catheter. A retrograde pyelogram was performed demonstrating overall normal course and caliber of the right ureter. There was some mild hydronephrosis of the right renal pelvis. Shadow could be visualized in the distal ureter, suspicious for the stone. A sensor wire was advanced to the level of the kidney under fluoroscopic guidance. Over the wire, a 6 Vincentian x 24 centimeter double-J ureteral stent was advanced. When the wire was removed, the proximal curl was visualized in the kidney with x-ray, and the distal curl visualized in the bladder with the cystoscope. At this point the bladder was drained and all instrumentation was removed. The patient was then awakened from anesthesia and was brought to the PACU in stable condition. I attest to the content of the Intraoperative Record and any orders documented therein. Any exceptions are noted below.
--- NOTE | 2021-02-25 22:22 | Anesthesiology Progress Note ---
Date of Service February 25, 2021 Anesthesia Post Procedure Vital Signs Vital Signs: Temp Pulse Pulse Resp BP BP BP 02/25/21 21:42 37 C 114 H 17 116/44 L 02/25/21 21:30 119 H 18 124/52 L 02/25/21 21:25 37 C 122 H 17 124/52 L 02/25/21 21:16 37.1 C 123 H 18 120/53 L 02/25/21 21:05 37.0 C 115 H 18 101/59 L 02/25/21 19:44 37.6 C H 105 H 22 118/61 02/25/21 19:25 37 C 122 H 17 117/59 L 02/25/21 18:17 37.5 C 02/25/21 17:41 38.3 C H 103 H 22 147/65 H 02/25/21 16:22 38.2 C H 103 H 24 02/25/21 15:42 37.6 C H 02/25/21 15:00 83 24 138/54 L 02/25/21 14:30 82 24 02/25/21 14:00 88 15 125/59 L 02/25/21 13:30 02/25/21 13:00 89 02/25/21 12:30 91 H 25 H 125/54 L 02/25/21 12:06 95 H 29 H 02/25/21 11:30 93 H 25 H 02/25/21 11:08 38.7 C H 89 20 158/67 H 02/25/21 11:06 89 29 H BP Pulse Ox 02/25/21 21:42 97 02/25/21 21:30 95 02/25/21 21:25 93 02/25/21 21:16 93 02/25/21 21:05 96 02/25/21 19:44 95 02/25/21 19:25 95 02/25/21 18:17 96 02/25/21 17:41 90 02/25/21 16:22 147/64 H 97 02/25/21 15:42 02/25/21 15:00 98 02/25/21 14:30 95 02/25/21 14:00 96 02/25/21 13:30 91 02/25/21 13:00 92 02/25/21 12:30 94 02/25/21 12:06 02/25/21 11:30 02/25/21 11:08 95 02/25/21 11:06 95 Transfer of Care Handoff Completed per policy Notes Mental Status: alert / awake / arousable and participated in evaluation Patient Amnestic to Procedure: Yes Nausea / Vomiting: adequately controlled Pain: adequately controlled Airway Patency, RR, SpO2: stable & adequate BP & HR: stable & adequate Hydration State: stable & adequate Anesthetic Complications: no major complications apparent and Pt Satisfied with anesthetic care
[2021-02-25] MEDS: METOPROLOL TARTRATE 100 MG TAB PO SCH (22:51)
[2021-02-25] MEDS: HEPARIN SOD 5,000 UNIT/0.5 ML VIAL SQ SCH (23:01)
[2021-02-26] MEDS ORDERED: INSULIN ASPART 100 UNITS/ML 3 ML PEN SC SCH
[2021-02-26] MEDS: LEVOTHYROXINE SODIUM 100 MCG TABLET PO SCH (06:12)
[2021-02-26 06:36] LABS: Mean Corpuscular Hgb Conc 30.9 g/dL (32-36)
[2021-02-26 07:00] LABS: BUN Creatinine Ratio 15.9 (10-20); Calcium 8.8 mg/dl (8.5-10.1); Creatinine Clr Calc Pharmacy 21.4 ml/min; Est GFR (African American) 31.8 ml/min; Est GFR (Non-African American) 27.4 ml/min; Magnesium 1.8 mg/dl (1.8-2.4); Potassium 3.8 mmol/L (3.5-5.1)
[2021-02-26 07:03] LABS: Basophils # (auto) 0.01 K/uL (0-0.2); Basophils % (auto) 0.1 %; Eosinophils # (auto) 0.01 K/uL (0-0.5); Eosinophils % (auto) 0.1 %; Hematocrit (blood only) 31.7 % (37-47); Hemoglobin 9.8 g/dL (12.0-16.0); Immature Granulocytes # (auto) 0.02 K/uL (0.00-0.02); Immature Granulocytes % (auto) 0.2 %; Lymphocytes # (auto) 1.03 K/uL (1.2-3.4); Lymphocytes % (auto) 9.1 %; Mean Corpuscular Hemoglobin 25.3 pg (25-34); Mean Corpuscular Volume 81.7 fL (80-100); Mean Platelet Volume 12.2 fL (7.4-10.4); Monocytes # (auto) 0.77 K/uL (0.11-0.59); Monocytes % (auto) 6.8 %; Neutrophils # (auto) 9.42 K/uL (1.4-6.5); Neutrophils % (auto) 83.7 %; Platelet Count 120 K/uL (130-400); Platelet Estimate Decreased (Normal); RDW Coefficient of Variation 18.3 % (11.5-14.5); RDW Standard Deviation 54.4 fL (36.4-46.3); Red Blood Count 3.88 M/uL (4.2-5.4); White Blood Count 11.26 K/uL (4.8-10.8)
[2021-02-26 07:04] LABS: Ferritin 52.7 ng/ml (8-388)
--- NOTE | 2021-02-26 07:06 | Ultrasound Report ---
ULTRASOUND RIGHT UPPER QUADRANT ABDOMEN CLINICAL HISTORY: Right upper quadrant abdominal pain. COMPARISON STUDY: Abdominal CT dated 02/25/2021. TECHNIQUE: Real-time, grayscale, and color flow sonography of the right upper quadrant of the abdomen was performed. Images are reviewed in the transverse and longitudinal planes. FINDINGS: Liver: The liver is cirrhotic in morphology and heterogeneous in echotexture. There is nodularity of the hepatic surface contour. There is no intrahepatic biliary ductal dilatation. The main portal vein is patent. Gallbladder: The gallbladder is distended. There are small gallstones. Mild gallbladder wall thickeni ng is nonspecific. This measures up to 9 mm. A sonographic Pierre's sign could not be evaluated as th e patient received analgesia. The common bile duct measures up to 0.5 cm in diameter. Gallbladder nida yps are suggested. Pancreas: Not visualized due to overlying bowel gas. Right kidney: Survey images of the right kidney demonstrate cortical atrophy. Echotexture is normal. There is no hydronephrosis. Ascites: There is trace ascites in the right upper quadrant. IMPRESSION: 1. The liver is cirrhotic in morphology and heterogeneous in echotexture. 2. The gallbladder is distended and there are several gallstones. Gallbladder wall thickening is nons pecific and may be related to cirrhosis and ascites. Findings are equivocal for acute cholecystitis w hich is not excluded. If there is strong clinical concern for cholecystitis a nuclear hepatobiliary s can should be considered. 3. There is no intra or extrahepatic biliary ductal dilatation. 4. Nonvisualization of the pancreas. ACT 112: Negative or not required by law. Electronically signed by: Jason Wong M.D. 02/26/2021 7:05 AM
--- NOTE | 2021-02-26 07:09 | Fluoroscopy Report ---
FL retrograde includes kub CLINICAL HISTORY: Urinary obstruction, stent placement TECHNIQUE: 2 views were obtained with the C-arm in the OR with the above procedure. Total fluoroscopy time was 6.9 seconds. Total skin dose was 1.82 mGy. Comparison: Comparison is made to CT abdomen and pelvis 02/25/2021 FINDINGS/IMPRESSION: Intraoperative images of right ureteral stent placement. Please correlate with intraoperative fluoroscopy and operative report. ACT 112: Negative or not required by law. Electronically signed by: Seng Cleveland M.D. 02/26/2021 7:08 AM
[2021-02-26 07:15] LABS: Estimated Average Glucose 163 mg/dl; Hemoglobin A1C 7.3 % (4.5-5.6)
[2021-02-26] MEDS: PANTOprazole 40 MG TAB PO SCH (07:55)
[2021-02-26] MEDS: HEPARIN SOD 5,000 UNIT/0.5 ML VIAL SQ SCH ×2 (07:56→22:56)
[2021-02-26] MEDS: METOPROLOL TARTRATE 100 MG TAB PO SCH (07:56)
--- NOTE | 2021-02-26 08:06 | Urology Progress Note ---
Date of Service February 26, 2021 Assessment & Plan (1) Kidney stone: (2) Fever: Plan: 80yo F admitted post fall with fevers and altered mental status with CT findings noting a right-sided ureteral stone, approximately 8 mm in diameter, which appeared to be obstructing - POD #1 s/p Cystoscopy, Retrograde Pyelogram, Right Stent Insertion with Dr. Silveira - Tolerating the ureteral stent with minimal bother, reports some mild dysuria with urination - Afebrile at present, Tmax yesterday 38.7 - Labs reviewed, Wbc 11.26, Hgb 9.8, Cr 1.75 - UCx pending; BCx preliminary gram positive cocci clusters, follow cultures - Voiding spontaneously -Continue to monitor urine output, bladder scan as needed - Continue supportive care, antibiotic therapy, and close monitoring - Can consider tamsulosin and prn pyridum for urinary symptoms and stent pain - Will arrange outpatient follow-up with urology for definitive stone management - Thank you for allowing us to participate in the acute care of Ms. Alcantara. Please reconsult us with additional questions, concerns or changes in patient status. Admission and Anticipated Discharge Date Admission Date: February 25, 2021 Supervising Physician Co-Signing Physician Notes I have seen and examined Ms. Alcantara and agree with the above documentation. She is tolerating her stent well. We discussed that we will arrange office follow- up to coordinate further management of her ureteral stones and subsequent removal of her stent. Subjective Pt examined at bedside this AM. Awake, resting in bed on arrival. Alert and oriented to person. Forgetful at times. No acute distress. She denies back, flank, or suprapubic pain at present. No hematuria. Some mild dysuria. Using bedside commode, urine output overnight 175 ml No fevers or chills. Denies nausea or vomiting. Review of Systems Constitutional: as per Subjective / HPI Gastrointestinal: as per Subjective / HPI Genitourinary: as per Subjective / HPI Physical Exam Constitutional: no acute distress Respiratory: normal respiratory effort; no labored breathing and no audible wheezes Gastrointestinal (Abdomen): Inspection/Auscultation: abdomen normal to inspection; abdomen not distended Percussion/Palpation: abdomen soft; abdomen nontender Musculoskeletal: Head/Neck/Chest: normocephalic Extremities: extremities normal to inspection Skin: No visible rashes or lesions to exposed skin areas Neurologic: moves all extremities and awake Psychiatric: Alert but forgetful, difficulty with word finding at times, difficulty with maintaining a conversation Results & Data ([facility]) Vital Signs (Past 12 Hours) Vital Signs Temp Pulse Pulse Resp BP BP Pulse Ox 02/26/21 07:49 36.8 C 105 H 18 109/54 L 91 02/26/21 07:33 10 L 02/26/21 02:40 37.1 C 111 H 18 106/62 98 02/26/21 01:18 107 H 02/26/21 01:07 37.3 C 112 H 20 95/57 L 97 02/26/21 00:04 36.8 C 114 H 16 94/57 L 96 02/25/21 23:10 36.7 C 111 H 20 97/58 L 97 02/25/21 22:51 36.7 C 109 H 18 99/58 L 95 02/25/21 21:42 37 C 114 H 17 116/44 L 97 02/25/21 21:30 119 H 18 124/52 L 95 02/25/21 21:25 37 C 122 H 17 124/52 L 93 02/25/21 21:16 37.1 C 123 H 18 120/53 L 93 02/25/21 21:05 37.0 C 115 H 18 101/59 L 96 PG Care Time/CCT Total # of Minutes Spent Total Time Spent with Patient: Total time spent is greater than 50% in coordination of care (as documented) at patient's floor/unit and/or counseling patient: Coding Level of Care Code 71267 Subseq Hosp Care Lvl 2 Diagnoses Kidney stone N20.0 Fever R50.9 Fever type: unspecified (1) Fever Fever type: unspecified Qualified Code(s): R50.9 - Fever, unspecified
[2021-02-26] MEDS: INSULIN ASPART 100 UNITS/ML 3 ML PEN SC SCH ×4 (08:38→22:55)
[2021-02-26] MEDS ORDERED: VALSARTAN 80 MG TAB PO SCH (09:00)
[2021-02-26] MEDS ORDERED: hydroCHLOROthiazide 25 MG TAB PO SCH (09:00)
--- NOTE | 2021-02-26 10:01 | Hospitalist Progress Note ---
Date of Service February 26, 2021 Assessment & Plan (1) Falls: Plan: Princess Alcantara is a 80-year-old female with past medical history of hypertension, hypothyroidism, DM 2, GI ulcers, osteoarthritis who was brought [facility] due to falling, weakness, and confusion. She was admitted for nephrolithiasis and sepsis management. Metabolic Encephalopathy sec to sepsis Sepsis POA secondary to gram positive bacteremia -Source currently not definite. -Patient meeting sepsis criteria on arrival with elevated lactate, tachycardic, tachypneic, febrile -Lactate downtrending s/p IV hydration -Blood cultures growing gram-positive cocci in clusters further speciation and sensitivities pending -Urine culture finalized with more than 3 types of organisms present all high counts recommending a repeat collection, will order but patient has been on antibiotics at this point for over 24 hours -CT A/P showing: - The liver is cirrhotic in morphology and heterogeneous in attenuation. - Splenomegaly and trace perihepatic ascites indicate portal hypertension. - Cholelithiasis within a distended gallbladder. There is no clear CT evidence of acute cholecystitis. If there is clinical concern for acute cholecystitis a right upper quadrant ultrasound could be considered. - There is nonspecific inflammatory change identified around the celiac axis. There is also minimal infiltration and trace fluid around the distal pancreas. These findings are nonspecific. Correlate with serum amylase/lipase levels for evidence of acute pancreatitis. - There are least 2 distal right ureteral calculi just above the vesicoureteral junction which measure up to 8 mm. There is no upstream ureteral dilatation or hydronephrosis. - Additional bilateral nonobstructing calculi are present in both kidneys. -CXR showing no acute abnormality, incidental pulmonary hematoma in RLL -TTE with normal LV function, no mention of vegetation -- will consider REBEKA depending on ID recs -Infectious Disease consult placed -Continue ceftriaxone 1 g IV every 24 hours pending further speciation and sensitivities -Continue gentle IVF as patient confused and not consuming much oral nutrition or hydration--wean as possible Right kidney stone - s/p cystoscopy, retrograde pyelogram, stent insertion - 8mm stone right side- no obstruction or hydro noted on CT scan of abdomen - Urine sent after ceftriaxone administration - febrile on arrival to [facility]- follow trend - Urology consulted- appreciate assistance - Continue supportive care, antibiotic therapy, and close monitoring - Can consider tamsulosin and prn Pyridium for urinary symptoms and stent pain - Will arrange outpatient follow-up with urology for definitive stone management - Continue Rocephin as above Falls - Frequent falls at home - Unclear cause for falls--dementia with functional decline vs. hypotension with BB and infection - no focal weakness on exam - PT/OT consult for functional evaluations and needs Hypothyroidism - Continue Synthroid dose 100mcg daily - TSH normal Hypertension - Hold hctz/valsartan, metoprolol due to sepsis and hypotension. DVT prophylaxis: Heparin 5000 units subcu every 12 hours Dispo: MedSurg telemetry Diet: CC/DM2 CODE STATUS: DNR/DNI (2) Kidney stone: (3) Hypothyroidism: (4) HTN (hypertension): (5) Sepsis: (6) Bacteremia: Admission and Anticipated Discharge Date Admission Date: February 25, 2021 Supervising Physician Co-Signing Physician Notes Resident Physician Supervision Note: I independently interviewed and examined the patient and verified the presley hi story and physical, reviewed labs and image studies and agree with resident Dr. Last findings and care plan. Subjective No acute events overnight. Patient seen at bedside resting comfortably. She is oriented to situation, as she does know that she is here for some kidney stones. However, she is unable to correctly say where she is apart from "hospital" and cannot tell me year, though she does say it is February. Denies current abdominal pain, headache, dizziness, chest pain, palpitations, shortness of breath. Review of Systems Review of Systems: per subjective Physical Exam Physical Exam: GENERAL: Alert, oriented only to person and situation. NAD. HEENT: PERRL, EOMI. Moist mucous membranes. NECK: No JVD. No lymphadenopathy. CHEST/LUNGS: CTAB A/P. No crackles, wheezes, rales, rhonchi. HEART: RRR. No m/g/r. No carotid bruits. ABDOMEN: NT/ND, soft. BS+ x4 EXTREMITIES: No cyanosis, no clubbing, no edema SKIN: Warm and dry. No rashes or lesions. NEUROLOGIC: No FND. CN II-XII grossly intact. Results & Data Results & Data ([facility]) Vital Signs (Past 12 Hours) Vital Signs Temp Pulse Pulse Resp BP BP Pulse Ox 02/26/21 07:49 36.8 C 105 H 18 109/54 L 91 02/26/21 07:33 10 L 02/26/21 02:40 37.1 C 111 H 18 106/62 98 02/26/21 01:18 107 H 02/26/21 01:07 37.3 C 112 H 20 95/57 L 97 02/26/21 00:04 36.8 C 114 H 16 94/57 L 96 02/25/21 23:10 36.7 C 111 H 20 97/58 L 97 02/25/21 22:51 36.7 C 109 H 18 99/58 L 95 Resident Activity Tracking Resident Involvement: Resident Care Provided Care Provided: Adult Hospital Medicine
--- NOTE | 2021-02-26 10:53 | XCELERA ---
[id number]
--- NOTE | 2021-02-26 13:29 | Electrocardiogram Report ---
Test Reason : Blood Pressure : / mmHG Vent. Rate : 107 BPM Atrial Rate : 107 BPM P-R Int : 158 ms QRS Dur : 082 ms QT Int : 332 ms P-R-T Axes : 063 -06 076 degrees QTc Int : 443 ms Sinus tachycardia Inferior infarct , age undetermined Abnormal ECG No previous ECGs available Confirmed by Nathaniel Taylor ([id number]) on 02/26/2021 1:28:25 PM Referred By: REFERRED SELF Confirmed By:Nathaniel Taylor
[2021-02-26] MEDS ORDERED: cefTRIAXone SODIUM 1,000 MG in DEXTROSE 5% 50 ML IV SCH (16:00)
[2021-02-26] MEDS: ACETAMINOPHEN 325 MG TAB PO PRN (18:39)
[2021-02-27] MEDS: LEVOTHYROXINE SODIUM 100 MCG TABLET PO SCH (05:39)
[2021-02-27 06:12] LABS: Mean Corpuscular Hgb Conc 30.5 g/dL (32-36)
[2021-02-27 06:24] LABS: Hematocrit (blood only) 31.1 % (37-47); Hemoglobin 9.5 g/dL (12.0-16.0); Mean Corpuscular Hemoglobin 24.9 pg (25-34); Mean Corpuscular Volume 81.6 fL (80-100); RDW Coefficient of Variation 18.1 % (11.5-14.5); RDW Standard Deviation 53.8 fL (36.4-46.3); Red Blood Count 3.81 M/uL (4.2-5.4); White Blood Count 9.59 K/uL (4.8-10.8)
[2021-02-27 06:41] LABS: Platelet Count 91 K/uL (130-400)
[2021-02-27 06:43] LABS: Basophils # (auto) 0.01 K/uL (0-0.2); Basophils % (auto) 0.1 %; Hypochromasia Present; Immature Granulocytes # (auto) 0.02 K/uL (0.00-0.02); Immature Granulocytes % (auto) 0.2 %; Lymphocytes # (auto) 0.95 K/uL (1.2-3.4); Lymphocytes % (auto) 9.9 %; Monocytes # (auto) 0.96 K/uL (0.11-0.59); Neutrophils # (auto) 7.55 K/uL (1.4-6.5); Neutrophils % (auto) 78.8 %; Platelet Estimate Decreased (Normal); Polychromasia 1+
[2021-02-27 06:48] LABS: Creatinine Clr Calc Pharmacy 24.3 ml/min; Est GFR (African American) 36.2 ml/min; Est GFR (Non-African American) 31.3 ml/min; Magnesium 1.8 mg/dl (1.8-2.4); Potassium 3.3 mmol/L (3.5-5.1)
--- NOTE | 2021-02-27 07:59 | Hospitalist Progress Note ---
Date of Service February 27, 2021 Assessment & Plan (1) Falls: Plan: Princess Alcantara is a 80-year-old female with past medical history of hypertension, hypothyroidism, DM 2, GI ulcers, osteoarthritis who was brought to [facility] due to falling, weakness, and confusion. She was admitted for nephrolithiasis and sepsis management. Metabolic Encephalopathy sec to sepsis Sepsis POA with MSSA bacteremia -Source currently not definite. -Patient met sepsis criteria on arrival with elevated lactate, tachycardic, tachypneic, febrile -Urine culture finalized with more than 3 types of organisms present all high counts recommending a repeat collection, will order but patient has been on antibiotics at this point for over 24 hours -CT A/P with stones. No other source of infection -CXR showing no acute abnormality, incidental pulmonary hematoma in RLL -TTE with normal LV function, no mention of vegetation -Infectious Disease consulted: -BCx q48h until clear -Image of the entire spine prefer MRI with contrast if able -DC ceftriaxone in favor of Ancef -Monitor for signs/symptoms of septic arthritis -Ceftriaxone discontinued in favor of Ancef per ID recs -MRI spine ordered -DC IVF, patient tolerating p.o. well Right kidney stone - s/p cystoscopy, retrograde pyelogram, stent insertion - 8mm stone right side- no obstruction or hydro noted on CT scan of abdomen - Urine sent after ceftriaxone administration - febrile on arrival to [facility]- follow trend - Urology consulted- appreciate assistance - Continue supportive care, antibiotic therapy, and close monitoring - Can consider tamsulosin and prn Pyridium for urinary symptoms and stent pain - Will arrange outpatient follow-up with urology for definitive stone management - Ancef as above Falls - Frequent falls at home - Unclear cause for falls--dementia with functional decline vs. hypotension with BB and infection - no focal weakness on exam - PT/OT consult for functional evaluations and needs Diarrhea with incontinence - Episode of diarrhea with incontinence shortly before my arrival this AM - Per RN had 3 more loose stools today, but no incontinence - C diff negative - Possibly a side effect of antibiotics--she denies abd pain, n/v - Continue to monitor Cirrhosis -CT A/P showing: - The liver is cirrhotic in morphology and heterogeneous in attenuation. - Splenomegaly and trace perihepatic ascites indicate portal hypertension. - Cholelithiasis. -compensated. follow. Hypothyroidism - Continue Synthroid dose 100mcg daily - TSH normal Hypertension - Hold hctz/valsartan, metoprolol due to sepsis and hypotension. DVT prophylaxis: Heparin 5000 units subcu every 12 hours Dispo: MedSurg telemetry Diet: CC/DM2 F: 500ml NSS since still hypotensive. CODE STATUS: DNR/DNI (2) Kidney stone: (3) Hypothyroidism: (4) HTN (hypertension): (5) Sepsis: (6) Bacteremia: Admission and Anticipated Discharge Date Admission Date: February 25, 2021 Supervising Physician Co-Signing Physician Notes I have seen and examined Ms. Alcantara and agree with the above documentation. She is tolerating her stent well. We discussed that we will arrange office follow- up to coordinate further management of her ureteral stones and subsequent removal of her stent. Subjective Patient seen sitting at bedside this morning. She is more responsive today and answering questions appropriately. She does have several instances during our conversation where she seems mildly confused, but otherwise is able to track the conversation and respond as expected. Denies nausea, vomiting, abdominal pain, chest pain, shortness of breath, palpitations. Review of Systems Review of Systems: per subjective Physical Exam Physical Exam: GENERAL: Alert, oriented only to person and situation. NAD. HEENT: PERRL, EOMI. Moist mucous membranes. NECK: No JVD. No lymphadenopathy. CHEST/LUNGS: CTAB A/P. No crackles, wheezes, rales, rhonchi. HEART: RRR. No m/g/r. No carotid bruits. ABDOMEN: NT/ND, soft. BS+ x4 EXTREMITIES: No cyanosis, no clubbing, no edema SKIN: Warm and dry. No rashes or lesions. NEUROLOGIC: No FND. CN II-XII grossly intact. Results & Data Results & Data ([facility]) Vital Signs (Past 12 Hours) Vital Signs Temp Pulse Pulse Resp BP Pulse Ox 02/27/21 07:39 85 02/27/21 07:22 37.2 C 90 18 92/56 L 95 02/27/21 02:14 37.0 C 88 18 110/56 L 90 02/27/21 01:46 72 Resident Activity Tracking Resident Involvement: Resident Care Provided Care Provided: Adult Hospital Medicine
[2021-02-27] MEDS: PANTOprazole 40 MG TAB PO SCH (08:27)
[2021-02-27] MEDS: INSULIN ASPART 100 UNITS/ML 3 ML PEN SC SCH ×4 (08:27→21:25)
[2021-02-27] MEDS: ACETAMINOPHEN 325 MG TAB PO PRN (08:29)
[2021-02-27] MEDS: POTASSIUM CHLORIDE 40 MEQ in SODIUM CHLORIDE 0.9% 1000ML 1,000 ML IV SCH ×2 (09:19→21:23)
[2021-02-27] MEDS: HEPARIN SOD 5,000 UNIT/0.5 ML VIAL SQ SCH ×2 (09:20→21:24)
[2021-02-27] MEDS ORDERED: Influenza Vaccine-High Dose (Fluzone-HD) PF 65+ 0.7 ML SYR IM ONE (13:30)
[2021-02-27] MEDS ORDERED: ceFAZolin 2000MG 2,000 MG/15 ML SYR IV ONE (15:15)
[2021-02-27] MEDS ORDERED: SODIUM CHLORIDE 0.9% 1000ML 500 ML IV ONE (16:41)
[2021-02-27] MEDS ORDERED: LORazepam 0.5 MG/1 ML VIAL IV STA (17:45)
[2021-02-27] MEDS ORDERED: GADOBUTROL 65ML VIAL IV ONE (20:25)
--- NOTE | 2021-02-27 20:54 | Magnetic Resonance Report ---
MR thoracic spine wo/w con CLINICAL HISTORY: r/o epidural abscess TECHNIQUE: 3 plane localizer images, axial T2, axial T1, sagittal T2, sagittal T1 and sagittal STIR s equences through the thoracic spine were obtained, without intravenous contrast. Comparison: None available at the time of this dictation. FINDINGS: The alignment is anatomical. There is no significant disc bulge or herniation. The spinal canal and n eural foramina are patent. The intervertebral discs are normal in height and signal. There is normal height and signal of the visualized vertebral bodies. The spinal cord is normal in signal intensity and there is no evidence of cord contusion. There is no evidence of an extradural, intradural, extramedullary or intramedullary lesion. The spinal ligaments are intact, without evidence of disruption or abnormal signal intensity. IMPRESSION: No abnormality in the thoracic spine and in particular no evidence of epidural abscess. Exam is limit ed by patient motion. ACT 112: Negative or not required by law. Electronically signed by: Seng Cleveland M.D. 02/27/2021 8:52 PM
--- NOTE | 2021-02-27 20:56 | Magnetic Resonance Report ---
MR OF THE CERVICAL SPINE WITHOUT IV CONTRAST CLINICAL HISTORY: r/o epidural abscess Comparison: None available at the time of this dictation. TECHNIQUE: MRI of the cervical spine is performed utilizing various T1 and T2 sequences in the axial and sagittal planes. IV contrast was not administered for this examination. FINDINGS: Cervical spine: Vertebral body height and alignment are maintained throughout the cervical spine. The atlantodental articulation appears maintained. No destructive bony lesion is seen. Intervertebral discs: Normal in height and signal intensity. Spinal cord: The cervical spinal cord is normal in morphology and signal intensity. Multilevel degenerative changes are seen most prominent at C5-C6 and C6-C7, where ligamentum flavum h ypertrophy and posterior disc bulge results in moderate to severe spinal canal stenosis. No significa nt neuroforaminal stenosis is seen. Soft tissues: The paraspinous and prevertebral soft tissues are normal in appearance. Brain parenchyma: Partially imaged brain parenchyma at the skull base is within normal limits. IMPRESSION: Degenerative changes in the spine without to moderate to severe spinal stenosis. No evide nce of epidural abscess. ACT 112: Negative or not required by law. Electronically signed by: Seng Cleveland M.D. 02/27/2021 8:55 PM
--- NOTE | 2021-02-27 21:06 | Magnetic Resonance Report ---
MR lumbar spine wo/w con CLINICAL HISTORY: r/o epidural abscess TECHNIQUE: 3 plane localizer images, sagittal T2, sagittal T1, sagittal STIR, axial T1, axial T2 kisha g with postcontrast axial T1 and sagittal T1 fat-saturated sequences were obtained of the lumbar spin e, before and after intravenous administration of 12 mL of MultiHance. Comparison: None available at the time of this dictation. FINDINGS: Multilevel degenerative changes are seen most prominent at L3-L4 and L4-L5, with posterior disc bulge results in severe spinal stenosis. Neuroforamina are largely patent. Incidentally noted is a bony he mangioma in the L4 vertebral body. No rim-enhancing fluid collection is seen. Mild soft tissue strand ing is seen in the lower lumbar region. IMPRESSION: Degenerative changes as above. No evidence of epidural abscess. ACT 112: Negative or not required by law. Electronically signed by: Seng Cleveland M.D. 02/27/2021 9:04 PM
[2021-02-28] MEDS: ceFAZolin 1000MG 1,000 MG/7.5 ML SYR IV SCH ×2 (02:41→14:56)
[2021-02-28] MEDS: LEVOTHYROXINE SODIUM 100 MCG TABLET PO SCH (05:56)
--- NOTE | 2021-02-28 07:02 | Hospitalist Progress Note ---
Date of Service February 28, 2021 Assessment & Plan (1) Falls: Plan: Princess Alcantara is a 80-year-old female with past medical history of hypertension, hypothyroidism, DM 2, GI ulcers, osteoarthritis who was brought to [facility] due to falling, weakness, and confusion. She was admitted for nephrolithiasis and sepsis management. Metabolic Encephalopathy sec to sepsis Sepsis POA with MSSA bacteremia -Urine culture finalized with more than 3 types of organisms present all high counts recommending a repeat collection, will order but patient has been on antibiotics at this point for over 24 hours -CT A/P with stones. No other source of infection -CXR showing no acute abnormality, incidental pulmonary hematoma in RLL -TTE with normal LV function, no mention of vegetation -Infectious Disease consulted: -BCx q48h until clear -MRI spine neg for epidural abscess -DC ceftriaxone in favor of Ancef -Monitor for signs/symptoms of septic arthritis Right kidney stone - s/p cystoscopy, retrograde pyelogram, stent insertion - 8mm stone right side- no obstruction or hydro noted on CT scan of abdomen - Urine sent after ceftriaxone administration - febrile on arrival to [facility]- follow trend - Urology consulted- appreciate assistance - Continue supportive care, antibiotic therapy, and close monitoring - Can consider tamsulosin and prn Pyridium for urinary symptoms and stent pain - Will arrange outpatient follow-up with urology for definitive stone manag ement - Ancef as above Falls - Frequent falls at home - Unclear cause for falls--dementia with functional decline vs. hypotension with BB and infection - no focal weakness on exam - PT/OT consult for functional evaluations and needs Thrombocytopenia - downtrending 160->120->91->86 - likely 2/2 cirrhosis, less suspicious for HIT. if continues to worsen, will check for hemolysis labs and possible smear - continue following cbc Diarrhea with incontinence - Episode of diarrhea with incontinence shortly before my arrival this AM - Per RN had 3 more loose stools, but no incontinence - C diff negative - Possibly a side effect of antibiotics--she denies abd pain, n/v - Continue to monitor Cirrhosis -CT A/P showing: - The liver is cirrhotic in morphology and heterogeneous in attenuation. - Splenomegaly and trace perihepatic ascites indicate portal hypertension. - Cholelithiasis. -compensated. follow. Hypothyroidism - Continue Synthroid dose 100mcg daily - TSH normal Hypertension - Hold hctz/valsartan, metoprolol due to sepsis and hypotension. DVT prophylaxis: Considered holding Heparin, but given level of thrombocytopenia and imaging suggestive of cirrhosis, will continue heparin dvt PPX Dispo: [facility] telemetry. Dispo waiting on 48 hours of neg blood cultures. Dispo would be home (to son in [place]) w/ home health and PICC line for IV abx. Discussed w/ son at bedside today. He initially wanted patient to go to [facility], but after discussion, patient will go with other son in [place]. FEN/GI: CC/DM2. Minced and moist. No current IV fluids. CODE STATUS: DNR/DNI (2) Kidney stone: (3) Hypothyroidism: (4) HTN (hypertension): (5) Sepsis: (6) Bacteremia: (7) Thrombocytopathia: Admission and Anticipated Discharge Date Admission Date: February 25, 2021 Supervising Physician Co-Signing Physician Notes Resident Physician Supervision Note: I independently interviewed and examined the patient and verified the presley history and physical, reviewed labs and image studies and agree with resident Dr. Jang findings and care plan. Subjective Patient is feeling better. Some mild low back back w/ some numbness/tingling down right leg to knee. Feels her confusion has resolved. Mild wkness. Eating now. She does not currently have her dentures and would like softer/liquid diet. Review of Systems Review of Systems: All systems reviewed & are unremarkable except as noted in HPI & below Constitutional: Denies fever, chills overnight Eyes: Denies blurry vision, vision changes ENT: Denies sore throat, sinus pain Cardiovascular: Denies chest pain. Intermittent palpitations, not new. Respiratory: Denies shortness of breath Gastrointestinal: Denies abdominal pain, nausea, vomiting, constipation. + diarrhea 3 times since yesterday Genitourinary: Denies urinary symptoms including dysuria currently. dyuria at admission, since resolved. Musculoskeletal: Denies weakness. SOme pain at back of neck, milder. Neurological: Mild SHARP, improved. Physical Exam 2 Physical Exam: General: A&Ox4. NAD. Cooperative. HEENT: Atraumatic, normocephalic. EOMI Pulm: Slightly Soft breath sounds. Faint insp crackles at young. No respiratory distress. Cardiac: RRR, -mrg. Radial pulses intact and symmetrical. Trace BLE pretibial, slightly worse on L. Thin shins. Abdominal: Nontender, nondistended, soft. msk: mild ttp r lower paraspinal Neuro: Neg slr 15 deg in seated pos. Results & Data Results & Data ([facility]) Vital Signs (Past 12 Hours) Vital Signs soft bp yesterday and 9pm 93/60 Temp Pulse Pulse Resp BP BP Pulse Ox 02/28/21 04:00 36.7 C 91 H 18 103/61 95 02/28/21 02:55 92 H 02/27/21 23:00 36.5 C 96 H 18 120/63 94 02/27/21 21:00 36.5 C 106 H 18 93/60 L 96 Laboratory Results No leukocytosis. Hb 11.5->9.8-9.5-9.0. MCV 80.6. iron deficient? Plts 160->120->91->86. Na 132->15. K 3.3->3.9. Cr 1.75->1.57->1.31. Mg 1.6L. cdif neg. spinal mri series neg for epidural abscess. 02/27/21 pending. 02/25/21 BC s aureus francois sen. 02/26/21 echo ef 60-65 02/28/21 07:07 02/28/21 07:07 Diagnostic Findings Cervical Spine MRI 02/27/21 15:13 MR OF THE CERVICAL SPINE WITHOUT IV CONTRAST CLINICAL HISTORY: r/o epidural abscess Comparison: None available at the time of this dictation. TECHNIQUE: MRI of the cervical spine is performed utilizing various T1 and T2 sequences in the axial and sagittal planes. IV contrast was not administered for this examination. FINDINGS: Cervical spine: Vertebral body height and alignment are maintained throughout the cervical spine. The atlantodental articulation appears maintained. No destructive bony lesion is seen. Intervertebral discs: Normal in height and signal intensity. Spinal cord: The cervical spinal cord is normal in morphology and signal intensity. Multilevel degenerative changes are seen most prominent at C5-C6 and C6-C7, where ligamentum flavum hypertrophy and posterior disc bulge results in moderate to severe spinal canal stenosis. No significant neuroforaminal stenosis is seen. Soft tissues: The paraspinous and prevertebral soft tissues are normal in appearance. Brain parenchyma: Partially imaged brain parenchyma at the skull base is within normal limits. IMPRESSION: Degenerative changes in the spine without to moderate to severe spinal stenosis. No evidence of epidural abscess. ACT 112: Negative or not required by law. Electronically signed by: Seng Cleveland M.D. 02/27/2021 8:55 PM Lumbar Spine MRI 02/27/21 15:13 MR lumbar spine wo/w con CLINICAL HISTORY: r/o epidural abscess TECHNIQUE: 3 plane localizer images, sagittal T2, sagittal T1, sagittal STIR, axial T1, axial T2 along with postcontrast axial T1 and sagittal T1 fat- saturated sequences were obtained of the lumbar spine, before and after intravenous administration of 12 mL of MultiHance. Comparison: None available at the time of this dictation. FINDINGS: Multilevel degenerative changes are seen most prominent at L3-L4 and L4-L5, with posterior disc bulge results in severe spinal stenosis. Neuroforamina are largely patent. Incidentally noted is a bony hemangioma in the L4 vertebral body. No rim-enhancing fluid collection is seen. Mild soft tissue stranding is seen in the lower lumbar region. IMPRESSION: Degenerative changes as above. No evidence of epidural abscess. ACT 112: Negative or not required by law. Electronically signed by: Seng Clevelnad M.D. 02/27/2021 9:04 PM Thoracic Spine MRI 02/27/21 15:13 MR thoracic spine wo/w con CLINICAL HISTORY: r/o epidural abscess TECHNIQUE: 3 plane localizer images, axial T2, axial T1, sagittal T2, sagittal T1 and sagittal STIR sequences through the thoracic spine were obtained, without intravenous contrast. Comparison: None available at the time of this dictation. FINDINGS: The alignment is anatomical. There is no significant disc bulge or herniation. The spinal canal and neural foramina are patent. The intervertebral discs are normal in height and signal. There is normal height and signal of the visualized vertebral bodies. The spinal cord is normal in signal intensity and there is no evidence of cord contusion. There is no evidence of an extradural, intradural, extramedullary or intramedullary lesion. The spinal ligaments are intact, without evidence of disruption or abnormal signal intensity. IMPRESSION: No abnormality in the thoracic spine and in particular no evidence of epidural abscess. Exam is limited by patient motion. ACT 112: Negative or not required by law. Electronically signed by: Seng Cleveland M.D. 02/27/2021 8:52 PM Resident Activity Tracking Resident Involvement: Resident Care Provided Care Provided: Adult Hospital Medicine
[2021-02-28 08:15] LABS: BUN Creatinine Ratio 20.9 (10-20); Calcium 8.9 mg/dl (8.5-10.1); Creatinine Clr Calc Pharmacy 29.4 ml/min; Est GFR (African American) 45.1 ml/min; Est GFR (Non-African American) 38.9 ml/min; Magnesium 1.6 mg/dl (1.8-2.4); Potassium 3.9 mmol/L (3.5-5.1)
[2021-02-28 08:18] LABS: Eosinophils # (auto) 0.13 K/uL (0-0.5); Eosinophils % (auto) 1.8 %; Immature Granulocytes # (auto) 0.02 K/uL (0.00-0.02); Immature Granulocytes % (auto) 0.3 %; Lymphocytes # (auto) 0.84 K/uL (1.2-3.4); Lymphocytes % (auto) 11.6 %; Mean Corpuscular Volume 80.6 fL (80-100); Mean Platelet Volume 12.1 fL (7.4-10.4); Monocytes # (auto) 0.97 K/uL (0.11-0.59); Monocytes % (auto) 13.4 %; Neutrophils # (auto) 5.27 K/uL (1.4-6.5); Neutrophils % (auto) 72.9 %; Platelet Count 86 K/uL (130-400); Platelet Estimate Decreased (Normal); RDW Standard Deviation 53.4 fL (36.4-46.3); White Blood Count 7.23 K/uL (4.8-10.8)
[2021-02-28] MEDS: INSULIN ASPART 100 UNITS/ML 3 ML PEN SC SCH ×4 (08:22→20:18)
[2021-02-28] MEDS: PANTOprazole 40 MG TAB PO SCH (08:24)
[2021-02-28] MEDS: ACETAMINOPHEN 325 MG TAB PO PRN (19:34)
[2021-02-28] MEDS: MAGNESIUM SULFATE / D5W 1 GM/100 ML BAG IV SCH ×2 (19:36→22:13)
[2021-02-28] MEDS: HEPARIN SOD 5,000 UNIT/0.5 ML VIAL SQ SCH (20:16)
[2021-03-01] MEDS: ceFAZolin 1000MG 1,000 MG/7.5 ML SYR IV SCH ×2 (04:23→14:13)
[2021-03-01] MEDS: LEVOTHYROXINE SODIUM 100 MCG TABLET PO SCH (06:14)
[2021-03-01 06:34] LABS: Mean Corpuscular Hgb Conc 30.5 g/dL (32-36)
[2021-03-01 07:01] LABS: Albumin Level 1.6 gm/dl (3.4-5.0); BUN Creatinine Ratio 18.1 (10-20); Calcium 8.3 mg/dl (8.5-10.1); Creatinine Clr Calc Pharmacy 29.8 ml/min; Est GFR (African American) 45.9 ml/min; Est GFR (Non-African American) 39.6 ml/min; Magnesium 2.3 mg/dl (1.8-2.4); Potassium 3.7 mmol/L (3.5-5.1)
--- NOTE | 2021-03-01 07:07 | Discharge Summary ---
Date of Service March 01, 2021 Admission HPI Per Admitting Provider 80 YOF with past medical history of : HTN, HLD, Hypothyroidism, DMII (on Triseba), ? iron deficiency anemia, GI ulcerations, arthritis of hands and shouler. Information for this HPI was from patient interview and phone conversation with the son. Patient is poor historian on actual diagnosis and she has was just brought to the area to live with her son following an illness for PNA. She will be seeing [facility] on . Patient was brought into the EMD today for falling, weakness, and confusion. She was reported as lethargic and confused on arrival that responded well to IVF and mag nesium replacement. Patient has had ~2-3 falls over the past few weeks. Patient reports that her fall last week and today were her sliding of the side of the bed on the way to the bathroom. She states that she feels dizzy upon getting up but waits on the edge of the bed to make sure she is stable before she gets up. She denies passing out or losing consciousness with these events or feeling like she is going to pass out. Denies any chest pain, difficulty breathing, abdominal discomfort of fevers or chills. Endorses that last month she was treated for a bad cough and coughing up sputum and was on antibiotics. Unsure of when these finished or course. In the EMD the patient had routine labs done and complete imaging of cervical spine, abdomen, pelvis, routine CXR and ECG. Her labs revealed mild elevation of her WBC, normal HGB, RDW of 17, WELDING LEAD BURNER of 1.6 (unsure of baseline), Magnesium 1.4 (replaced), elevated ALkPo4 with normal bili and normal lipase. TSH 1.9. She had blood cultures drawn and was given 1 dose of Ceftriaxone in the EMD. CT scan of the abdomen was consistent with 8mmnephrolithiasis of the right side proximal to UVJ without hydro or obstruction as well as other pathologies- see below. Her urine is being sent now and this is after the Rocephin she received. Upon my evaluation the patient mentation has improved and although unsure of her diagnosis she was able to recall some of her medications. Patient will be admitted to continue her workup and evaluation for CT findings. Urology will be consulted for her nephrolithiasis, Continue ABX and electrolyte replacement. Will obtain ECHO as well for systolic murmur that she is unsure if she has had in the past. Patient has received her COVID vaccine and her COVID test on admission is: NEGATIVE Admission Exam Per Admitting Provider General: awake, alert, no apparent distress- mentation clear and appropriate Head: Normocephalic, atraumatic ENT: PERRLA, EOMI, no pharyngeal exudate, mucous membranes moist Neuro: AAO x 3, speech clear and appropriate, strength intact bilaterally 5/5, sensation intact and equal all extremities and dermatomes, no pronator drift Chest: equal rise and fall of the chest, no accessory muscle use, no heaves or thrills, scattered crackles in the bases, on room air, Cardiac: Regular rate and rhythm, telemetry reviewed-NSR, skin warm dry, cap refill <3 seconds, peripheral pulses +2 no JVD, Grade II systolic murmur, no peripheral edema GI: NABS x 4 quadrants, soft, nontender to palpation, no rebound, guarding or tenderness, no flank pain : Spontaneously voiding, no pain, no CVA tenderness Extremities: Normal inspection, no peripheral edema or erythema, calfs nontender to palpation Psych: Normal mood and affect- likely some baseline dementia Skin: bruise to shoulder and arms Principal Diagnosis bacteremia Discharge Exam HPI: Mild pain at top of R leg, attributes to laying in bed. Requesting regular diet now she has dentures. Mild SOB, new, intermittent, at rest. Intermittent palpitations. No problems with urination. ROS: See HPI Vitals: intermittent tachycardia 90s-100s General: Grossly A&O. NAD. Cooperative. HEENT: Atraumatic, normocephalic. EOMI. No obvious jvd. Pulm: CTAB. No respiratory distress. Cardiac: RRR, 2/6 systolic murmur. Trace BLE pretibial. Abdominal: Nontender, nondistended, soft. Neuro: + pos R slr. Discharge Data Allergies Allergy/AdvReac Type Severity Reaction Status Date / Time Penicillins Allergy Intermediate Hives Unverified 02/25/21 11:30 metronidazole [From Flagyl] Allergy Mild Nausea Unverified 02/25/21 11:31 Consultations 02/25/21 14:23 ED Decision to Admit Stat 02/25/21 16:22 Consult Urology Routine 02/26/21 11:11 Consult Infectious Diseases Routine Procedures Performed Operation Date: 02/25/21 08:30 Actual Procedures p Cystoscopy, Retrograde Pyelogram, Right Stent Insertion(Right) - Daren Silveira MD Ordered Studies wbc downtrending 11.59->9.9->7.23->6.66. Hb stable 9.1. Plts 86->88. Na 136. K 3.7, will replete. Cr stable 1.57->1.31->1.29. phos crit low 1.4, will replete. cultures: Cardiac Enzymes 03/01/21 Range/Units 06:09 AST 33 (15-37) U/L CBC 02/28/21 Range/Units 07:07 WBC 7.23 (4.8-10.8) K/uL RBC 3.60 L (4.2-5.4) M/uL Hgb 9.0 L (12.0-16.0) g/dL Hct 29.0 L (37-47) % Plt Count 86 L (130-400) K/uL Neut # (Auto) 5.27 (1.4-6.5) K/uL Lymph # (Auto) 0.84 L (1.2-3.4) K/uL Citrus # (Auto) 0.97 H (0.11-0.59) K/uL Eos # (Auto) 0.13 (0-0.5) K/uL Baso # (Auto) 0.00 (0-0.2) K/uL Comprehensive Metabolic Panel 02/28/21 03/01/21 Range/Units 07:07 06:09 Sodium 135 L 136 (136-145) mmol/L Potassium 3.9 D 3.7 (3.5-5.1) mmol/L Chloride 106 108 H (98-107) mmol/L Carbon Dioxide 21 23 (21-32) mmol/L BUN 27 H 23 H (7-18) mg/dl Creatinine 1.31 H 1.29 H (0.6-1.2) mg/dl Glucose 79 127 H (70-99) mg/dl Calcium 8.9 8.3 L (8.5-10.1) mg/dl AST 33 (15-37) U/L ALT 8 L (12-78) U/L Albumin 1.6 L (3.4-5.0) gm/dl Intake and Output 02/28/21 03/01/21 03/01/21 22:59 06:59 14:59 Intake Total 250 / 1370 100 / 1370 Balance 250 / 1370 100 / 1370 Intake: IV 100 / 1220 100 / 1220 Magnesium Sulfate / D5w 1 gm In 100 / 200 100 / 200 100 ml @ 50 mls/hr IV Q2H [facility] Rx#:[id number] Oral 150 / 150 Other: Weight 63 kg Weight Measurement Method Built in [facility] Abdomen/Pelvis CT 02/25/21 11:16 CT SCAN OF THE ABDOMEN AND PELVIS WITHOUT IV CONTRAST CLINICAL HISTORY: Fall. Back pain. Fever. COMPARISON STUDY: No priors. TECHNIQUE: CT scan of the abdomen and pelvis is performed from the lung bases to the proximal femora. Images are reviewed in the axial, sagittal, and coronal planes. IV contrast was not administered for this examination. Note that the examination was performed in significant suboptimal fashion without IV contrast. There is streak artifact from the right arm which could not be elevated above the abdomen. A dose lowering technique was utilized adhering to the principles of ALARA. FINDINGS: Lung bases: The heart is top normal in size and without pericardial effusion. The coronary arteries, aortic valve leaflets, and mitral annulus are densely calcified. There is also calcification of the pericardium. There is bibasilar scarring/atelectasis. No airspace consolidation or pleural effusion is identified. There are scattered calcified granulomas. A small hiatal hernia is noted. Liver: The unenhanced liver is cirrhotic in morphology and heterogeneous in attenuation. There is nodularity of the hepatic surface contour. There is no intrahepatic biliary ductal dilatation. Gallbladder: The gallbladder is distended and there are small calcified g allstones. There is no clear CT evidence of acute cholecystitis. Spleen: The spleen is enlarged measuring 17.1 cm in length. 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 Pancreas: The unenhanced pancreas is moderately atrophic. There is mild infiltration and trace fluid identified around the distal pancreas. Inflammatory change is also identified around the celiac trunk seen on image #113. Adrenal glands: Unremarkable. Kidneys: The unenhanced kidneys demonstrate cortical atrophy and are without hydronephrosis. There are least 2 calculi in the distal right ureter located just above the vesicoureteral junction. These are seen on images #339 and #345 and measures up to 8mm. There is no upstream ureteral dilatation or hydronephrosis. There are least 3 additional tiny nonobstructing right renal calculi which measure up to 3 mm. A punctate nonobstructing calculus is seen in the left ureter. There is no evidence of contour deforming renal mass lesion. Abdominal vasculature: The abdominal aorta is normal in course and caliber. Bowel: There is moderate colonic diverticulosis without CT evidence of acute diverticulitis. No bowel obstruction is seen. There is moderate constipation. The appendix is well-visualized and normal. Peritoneum: There is trace perihepatic ascites. No intraperitoneal free air is identified. Lymphadenopathy: None. Pelvic viscera: The bladder, uterus, and adnexa are normal as visualized. Skeletal structures: The skeletal structures are osteopenic. Moderate lumbosacral spondylosis is observed. No lytic or blastic lesions are seen. IMPRESSION: 1. Significantly suboptimal examination without IV contrast. 2. There is no evidence of solid organ injury in the abdomen or pelvis on this unenhanced examination. 3. The liver is cirrhotic in morphology and heterogeneous in attenuation. 4. Splenomegaly and trace perihepatic ascites indicate portal hypertension. 5. Cholelithiasis within a distended gallbladder. There is no clear CT evidence of acute cholecystitis. If there is clinical concern for acute cholecystitis a right upper quadrant ultrasound could be considered. 6. There is nonspecific inflammatory change identified around the celiac axis. There is also minimal infiltration and trace fluid around the distal pancreas. These findings are nonspecific. Correlate with serum amylase/lipase levels for evidence of acute pancreatitis. The patency of the celiac and superior mesenteric arteries cannot be assessed on this examination. 7. There are least 2 distal right ureteral calculi just above the vesicoureteral junction which measure up to 8 mm. There is no upstream ureteral dilatation or hydronephrosis. 8. Additional bilateral nonobstructing calculi are present in both kidneys. 9. Additional findings as above. ACT 112: Negative or not required by law. Electronically signed by: Jason Wong M.D. 02/25/2021 12:[address] 02/25/21 11:16 CT SCAN OF THE CERVICAL SPINE CLINICAL HISTORY: Trauma. Fall. COMPARISON STUDY: No priors. TECHNIQUE: CT scan of the cervical spine is performed from the skull base to the upper thoracic spine. Images are reviewed in the axial, sagittal, and coronal planes. IV contrast was not administered for this examination. A dose lowering technique was utilized adhering to the principles of ALARA. FINDINGS: Skeletal structures: The skeletal structures are osteopenic. There is no evidence of fracture or subluxation involving the cervical spine. Vertebral body height and alignment are maintained. Anterior osteophytes are seen throughout. The odontoid process and lateral masses are intact. The atlantoaxial articulation is preserved noting productive degenerative change. The spinous processes appear intact. There is mild to moderate multilevel cervical spondylosis. Uncovertebral and facet arthropathy contribute to neural foraminal narrowing at several levels. Intervertebral discs: Moderate to advanced disc space narrowing is seen at C5-C6 and C6-C7. Milder disc space narrowing is noted at the remaining cervical levels. Central canal: Posterior disc osteophyte complexes at C3-C4, C5-C6, and C6-C7 likely contribute to acquired compromise of the central canal. Soft tissues: The prevertebral and paraspinous soft tissues are within normal limits. Atrophic. Atherosclerotic calcification is noted in the carotid bulbs. Calvarium: The visualized calvarium at the skull base appears intact. Brain parenchyma: Partially visualized brain parenchyma at the skull base is within normal limits. Sinuses and mastoids: The visualized paranasal sinuses are clear. The mastoid air cells are well pneumatized. Lung apices: Clear as visualized. IMPRESSION: 1. There is no evidence of fracture or subluxation involving the cervical spine. 2. Osteopenia and spondylotic change as above. ACT 112: Negative or not required by law. Electronically signed by: Jason Wong M.D. 02/25/2021 12:[address] 02/25/21 11:16 CT chest diagnostic wo con CLINICAL HISTORY: fall, fever TECHNIQUE: Multidetector row helical CT of the chest was performed. Coronal and sagittal reformations were obtained. Automated dose lowering techniques and/or adjustment according to patient size were utilized for this exam. Comparison: None available at the time of this dictation. FINDINGS: Lungs and pleura: 22 mm fat density lesion is seen in the right lower lobe compatible with hamartoma. Bilateral atelectasis is seen. Heart and pericardium: Heart size is normal. No pericardial effusion. Vessels: Moderate atherosclerotic changes in the aorta and coronary arteries. Mediastinum and kate: Unremarkable. Chest wall and lower neck: Unremarkable. Abdomen: For findings below the diaphragm, please refer to CT of the abdomen dated the same. Bones: Degenerative changes in the thoracic spine. IMPRESSION: No evidence of acute abnormality. Incidental note is made of pulmonary hematoma in the right lower lobe. ACT 112: Negative or not required by law. Electronically signed by: Seng Cleveland M.D. 02/25/2021 12:[address] 02/25/21 11:16 CT SCAN OF THE BRAIN WITHOUT IV CONTRAST CLINICAL HISTORY: Fall. COMPARISON STUDY: No priors. TECHNIQUE: Unenhanced axial CT scan of the brain is performed from the vertex to the skull base. A dose lowering technique was utilized adhering to the principles of ALARA. FINDINGS: Brain parenchyma: There are age-related involutional changes noting mild subcortical and periventricular microangiopathic change. There is no hemorrhage, mass effect, or evidence of acute territorial ischemia by CT criteria. Moore- white matter differentiation is preserved. No extra-axial fluid collection is seen. Ventricles, sulci, cisterns: Prominent secondary to involutional change. Intracranial vasculature: There is atherosclerotic calcification of the cavernous carotid and vertebral arteries. Calvarium: The skeletal structures are osteopenic. No depressed calvarial fracture is identified. Sinuses and mastoids: The visualized paranasal sinuses are clear. The mastoid air cells are well pneumatized. Orbits: The bony orbits are grossly intact. There are bilateral ocular lens implants IMPRESSION: There is no hemorrhage, mass effect, or evidence of acute territorial ischemia by CT criteria. ACT 112: Negative or not required by law. Electronically signed by: Jason Wong M.D. 02/25/2021 12:09 PM Chest X-Ray 02/25/21 11:17 SINGLE VIEW CHEST CLINICAL HISTORY: Fall. Fever. FINDINGS: An AP, portable, upright chest radiograph is obtained. No prior studies are available for comparison at the time of dictation. The heart is top normal for projection. A 2.2 cm nodular density projects over the right midlung. Scarring/atelectasis is seen at the lung bases. No airspace consolidation or large pleural effusion is identified. No pneumothorax is seen. The skeletal structures are osteopenic. The bony thorax is grossly intact. There is chronic deformity of the right proximal humerus. IMPRESSION: 1. No acute cardiopulmonary abnormality is identified. 2. A 2.2 cm nodular density projects over the right midlung. Nonemergent chest CT is recommended for further assessment. ACT 112: Negative or not required by law. Electronically signed by: Jason Wong M.D. 02/25/2021 12:04 PM Liver Ultrasound 02/25/21 18:53 ULTRASOUND RIGHT UPPER QUADRANT ABDOMEN CLINICAL HISTORY: Right upper quadrant abdominal pain. COMPARISON STUDY: Abdominal CT dated 02/25/2021. TECHNIQUE: Real-time, grayscale, and color flow sonography of the right upper quadrant of the abdomen was performed. Images are reviewed in the transverse and longitudinal planes. FINDINGS: Liver: The liver is cirrhotic in morphology and heterogeneous in echotexture. There is nodularity of the hepatic surface contour. There is no intrahepatic biliary ductal dilatation. The main portal vein is patent. Gallbladder: The gallbladder is distended. There are small gallstones. Mild gallbladder wall thickening is nonspecific. This measures up to 9 mm. A sonographic Pierre's sign could not be evaluated as the patient received analgesia. The common bile duct measures up to 0.5 cm in diameter. Gallbladder polyps are suggested. Pancreas: Not visualized due to overlying bowel gas. Right kidney: Survey images of the right kidney demonstrate cortical atrophy. Echotexture is normal. There is no hydronephrosis. Ascites: There is trace ascites in the right upper quadrant. IMPRESSION: 1. The liver is cirrhotic in morphology and heterogeneous in echotexture. 2. The gallbladder is distended and there are several gallstones. Gallbladder wall thickening is nonspecific and may be related to cirrhosis and ascites. Findings are equivocal for acute cholecystitis which is not excluded. If there is strong clinical concern for cholecystitis a nuclear hepatobiliary scan should be considered. 3. There is no intra or extrahepatic biliary ductal dilatation. 4. Nonvisualization of the pancreas. ACT 112: Negative or not required by law. Electronically signed by: Jason Wong M.D. 02/26/2021 7:05 AM Retrograde Pyelogram 02/25/21 19:58 FL retrograde includes kub CLINICAL HISTORY: Urinary obstruction, stent placement TECHNIQUE: 2 views were obtained with the C-arm in the OR with the above procedure. Total fluoroscopy time was 6.9 seconds. Total skin dose was 1.82 mGy. Comparison: Comparison is made to CT abdomen and pelvis 02/25/2021 FINDINGS/IMPRESSION: Intraoperative images of right ureteral stent placement. Please correlate with intraoperative fluoroscopy and operative report. ACT 112: Negative or not required by law. Electronically signed by: Seng Cleveland M.D. 02/26/2021 7:08 AM Cervical Spine MRI 02/27/21 15:13 MR OF THE CERVICAL SPINE WITHOUT IV CONTRAST CLINICAL HISTORY: r/o epidural abscess Comparison: None available at the time of this dictation. TECHNIQUE: MRI of the cervical spine is performed utilizing various T1 and T2 sequences in the axial and sagittal planes. IV contrast was not administered for this examination. FINDINGS: Cervical spine: Vertebral body height and alignment are maintained throughout the cervical spine. The atlantodental articulation appears maintained. No destructive bony lesion is seen. Intervertebral discs: Normal in height and signal intensity. Spinal cord: The cervical spinal cord is normal in morphology and signal intensity. Multilevel degenerative changes are seen most prominent at C5-C6 and C6-C7, where ligamentum flavum hypertrophy and posterior disc bulge results in moderate to severe spinal canal stenosis. No significant neuroforaminal stenosis is seen. Soft tissues: The paraspinous and prevertebral soft tissues are normal in appearance. Brain parenchyma: Partially imaged brain parenchyma at the skull base is within normal limits. IMPRESSION: Degenerative changes in the spine without to moderate to severe spinal stenosis. No evidence of epidural abscess. ACT 112: Negative or not required by law. Electronically signed by: Seng Cleveland M.D. 02/27/2021 8:55 PM Lumbar Spine MRI 02/27/21 15:13 MR lumbar spine wo/w con CLINICAL HISTORY: r/o epidural abscess TECHNIQUE: 3 plane localizer images, sagittal T2, sagittal T1, sagittal STIR, axial T1, axial T2 along with postcontrast axial T1 and sagittal T1 fat- saturated sequences were obtained of the lumbar spine, before and after intravenous administration of 12 mL of MultiHance. Comparison: None available at the time of this dictation. FINDINGS: Multilevel degenerative changes are seen most prominent at L3-L4 and L4-L5, with posterior disc bulge results in severe spinal stenosis. Neuroforamina are largely patent. Incidentally noted is a bony hemangioma in the L4 vertebral body. No rim-enhancing fluid collection is seen. Mild soft tissue stranding is seen in the lower lumbar region. IMPRESSION: Degenerative changes as above. No evidence of epidural abscess. ACT 112: Negative or not required by law. Electronically signed by: Seng Cleveland M.D. 02/27/2021 9:04 PM Thoracic Spine MRI 02/27/21 15:13 MR thoracic spine wo/w con CLINICAL HISTORY: r/o epidural abscess TECHNIQUE: 3 plane localizer images, axial T2, axial T1, sagittal T2, sagittal T1 and sagittal STIR sequences through the thoracic spine were obtained, without intravenous contrast. Comparison: None available at the time of this dictation. FINDINGS: The alignment is anatomical. There is no significant disc bulge or herniation. The spinal canal and neural foramina are patent. The intervertebral discs are normal in height and signal. There is normal height and signal of the visualized vertebral bodies. The spinal cord is normal in signal intensity and there is no evidence of cord contusion. There is no evidence of an extradural, intradural, extramedullary or intramedullary lesion. The spinal ligaments are intact, without evidence of disruption or abnormal signal intensity. IMPRESSION: No abnormality in the thoracic spine and in particular no evidence of epidural abscess. Exam is limited by patient motion. ACT 112: Negative or not required by law. Electronically signed by: Seng Cleveland M.D. 02/27/2021 8:52 PM Hospital Course (1) Falls: Princess Alcantara is a 80-year-old female with past medical history of hypertension, hypothyroidism, DM 2, GI ulcers, osteoarthritis who was brought to [facility] due to falling, weakness, and confusion. She was admitted for nephrolithiasis and sepsis management. Metabolic Encephalopathy sec to sepsis Sepsis POA with MSSA bacteremia -Urine culture finalized with more than 3 types of organisms present all high counts recommending a repeat collection, will order but patient has been on antibiotics at this point for over 24 hours -CT A/P with stones. No other source of infection -CXR showing no acute abnormality, incidental pulmonary hematoma in RLL -TTE with normal LV function, no mention of vegetation -Infectious Disease consulted: -BCx q48h until clear -MRI spine neg for epidural abscess -DC ceftriaxone in favor of Ancef -Monitor for signs/symptoms of septic arthritis Right kidney stone - s/p cystoscopy, retrograde pyelogram, stent insertion - 8mm stone right side- no obstruction or hydro noted on CT scan of abdomen - Urine sent after ceftriaxone administration - febrile on arrival to [facility]- follow trend - Urology consulted- appreciate assistance - Continue supportive care, antibiotic therapy, and close monitoring - Can consider tamsulosin and prn Pyridium for urinary symptoms and stent pain - Will arrange outpatient follow-up with urology for definitive stone management - Ancef as above Falls - Frequent falls at home - Unclear cause for falls--dementia with functional decline vs. hypotension with BB and infection - no focal weakness on exam - PT/OT consult for functional evaluations and needs Thrombocytopenia - downtrending 160->120->91->86 - likely 2/2 cirrhosis, less suspicious for HIT. if continues to worsen, will check for hemolysis labs and possible smear - continue following cbc Diarrhea with incontinence - Episode of diarrhea with incontinence shortly before my arrival this AM - Per RN had 3 more loose stools, but no incontinence - C diff negative - Possibly a side effect of antibiotics--she denies abd pain, n/v - Continue to monitor Cirrhosis -CT A/P showing: - The liver is cirrhotic in morphology and heterogeneous in attenuation. - Splenomegaly and trace perihepatic ascites indicate portal hypertension. - Cholelithiasis. -compensated. follow. Hypothyroidism - Continue Synthroid dose 100mcg daily - TSH normal Hypertension - Hold hctz/valsartan, metoprolol due to sepsis and hypotension. HypoK, HypoMg, HypoPhos - repleted DVT prophylaxis: Considered holding Heparin, but given level of thrombocytopenia and imaging suggestive of cirrhosis, will continue heparin dvt PPX Dispo: MedSurg telemetry. Dispo waiting on 48 hours of neg blood cultures. Dispo would be home (to son in [place]) w/ home health and PICC line for IV abx. Discussed w/ son at bedside today. He initially wanted patient to go to [facility], but after discussion, patient will go with other son in [place]. FEN/GI: CC/DM2. Minced and moist. No current IV fluids. CODE STATUS: DNR/DNI (2) Kidney stone: (3) Hypothyroidism: (4) HTN (hypertension): (5) Sepsis: (6) Bacteremia: (7) Hypophosphatemia: (8) Thrombocytopenia: (9) Hypomagnesemia: (10) Hypokalemia: Total Time Total Time Spent Total Time Spent (In Minutes): see attending documentation Discharge Plan Discharge Items Patient Disposition: Transfer Inpatient Rehab Fac Reason For Visit: FALLS, WEAKNESS, CONFUSION Discharge Diagnosis: bacteremia Non-emergency contact: Primary Care Provider Call non-emergency contact if: you have any medication questions, your symptoms worsen and you have a fever Follow-up/Referrals: PCP,NO [Primary Care Provider] - Diet: Carb Consistent or DM2 Pending Studies at Discharge: No Stand-Alone Forms: My [facility] Medications and DC Order Prescriptions: No Action metoprolol tartrate 100 mg Tablet 100 mg PO BID RF: 0 omeprazole 40 mg Capsule,Delayed Release(Dr/Ec) 40 mg PO DAILY RF: 0 levothyroxine 100 mcg Tablet 100 mcg PO QAM RF: 0 alprazolam [Xanax] 0.5 mg Tablet 0.5 mg PO HS PRN (Reason: Anxiety) RF: 0 valsartan-hydrochlorothiazide 320-25 mg Tablet 1 tab PO DAILY RF: 0 Tresiba FlexTouch U-100 100 unit/mL (3 mL) Insulin Pen 0 unit SUBCUT DIRECTED RF: 0 Krames/Other Patient Handouts: A1C, Managing Type 2 Diabetes Admission Data Admit Date/Time: 02/25/21 15:07 Attending Provider: Hayley Sweeney Admit Provider: Abran Gutierrez Primary Care Provider: PCP,NO Other Providers: Abran Gutierrez ; Daren Silveira ; Joselito Jauregui ; Aliya Calle ; Trey Figueroa I. ; Madhu Perez II ; Darleen Kumar ; Rivera Cai ; Wesley Ny ; [facility] ; [place]Home Care ; [facility],Home Healthcare ; [facility] Home Health Attestation I certify that this patient is under my care and that I, or a physicians property management assistant working with me, had a face to-face encounter that meets the home health [id number] encounter requirements with this patient. The encounter with the patient was in whole, or in part, for the following medical condition, which is the primary reason for home health care (list medical condition): UTI, Falls I certify that, based on my findings, the following services are medically necessary home health services: My clinical findings support the need for the above services because: OT Assess ADL Status and Restore Function w ADLs PT Assessment for Endurance / Balance / Strength Skilled Nsg Assessment Further, I certify that my clinical findings support that this patient is homebound (i.e. absences from home require considerable and taxing effort and are for medical reasons or rastafari services or infrequently or of short duration when for other reasons) because: Transportation Assistance/Unable to Leave Home Unassisted Certification for Home Health Services: Based on the above findings, I certify that this patient is confined to the home and needs intermittent senior living care, physical therapy and/or speech therapy or continues to need occupational therapy. The patient is under my care, and I have initiated the establishment of the plan of care. This patient will be followed by a physician who will periodically review the plan of care. Resident Activity Tracking Resident Involvement: Resident Care Provided Care Provided: Adult [facility] Medicine
[2021-03-01 07:28] LABS: Albumin Globulin Ratio 0.4 (0.9-2); Bilirubin,Total 0.4 mg/dl (0.2-1); Globulin 4.3 gm/dl (2.5-4.0); Hematocrit (blood only) 29.8 % (37-47); Hemoglobin 9.1 g/dL (12.0-16.0); Mean Corpuscular Hemoglobin 24.9 pg (25-34); Mean Corpuscular Volume 81.4 fL (80-100); Mean Platelet Volume 12.2 fL (7.4-10.4); Phosphorus 1.4 mg/dl (2.5-4.9); Platelet Count 88 K/uL (130-400); RDW Coefficient of Variation 17.9 % (11.5-14.5); Red Blood Count 3.66 M/uL (4.2-5.4); Total Protein 5.9 gm/dl (6.4-8.2); White Blood Count 6.77 K/uL (4.8-10.8)
[2021-03-01 07:29] LABS: Basophils # (auto) 0.01 K/uL (0-0.2); Basophils % (auto) 0.1 %; Eosinophils # (auto) 0.23 K/uL (0-0.5); Eosinophils % (auto) 3.4 %; Immature Granulocytes # (auto) 0.05 K/uL (0.00-0.02); Immature Granulocytes % (auto) 0.7 %; Lymphocytes # (auto) 1.13 K/uL (1.2-3.4); Lymphocytes % (auto) 16.7 %; Monocytes # (auto) 0.89 K/uL (0.11-0.59); Monocytes % (auto) 13.1 %; Neutrophils # (auto) 4.46 K/uL (1.4-6.5); Platelet Estimate Decreased (Normal)
[2021-03-01] MEDS ORDERED: POTASSIUM PHOS 3 MMOL/1 ML INFUSION IV STA (08:16)
[2021-03-01] MEDS: INSULIN ASPART 100 UNITS/ML 3 ML PEN SC SCH ×4 (08:44→20:35)
[2021-03-01] MEDS: PANTOprazole 40 MG TAB PO SCH (08:59)
[2021-03-01] MEDS: HEPARIN SOD 5,000 UNIT/0.5 ML VIAL SQ SCH ×2 (08:59→20:34)
[2021-03-01] MEDS ORDERED: POTASSIUM PHOSPHATE 24 MMOL in SODIUM CHLORIDE 0.9% 500 ML IV ONE (09:00)
[2021-03-01 10:50] LABS: Ferritin 87.1 ng/ml (8-388)
[2021-03-01] MEDS ORDERED: FUROSEMIDE 20 MG in SYRINGE 0 ML IV STA (11:30)
[2021-03-01] MEDS ORDERED: POTASSIUM CHLORIDE CRTAB 20 MEQ TABCR PO STA ×2 (11:30→13:38)
--- NOTE | 2021-03-01 12:04 | XRay Report ---
XR chest 1V portable CLINICAL HISTORY: SOB, assess for pulm vasc congestion TECHNIQUE: Single frontal radiograph of the chest was obtained. Comparison: Comparison is made to chest one view 02/25/[address] chest 02/25/2021 FINDINGS: No lines and tubes are seen. The cardiomediastinal silhouette is normal. Previously noted nodular den sity in the right midlung is again seen. This was found to represent a pulmonary hamartoma on prior i maging. No evidence of pleural effusion or pneumothorax. IMPRESSION: No evidence of pulmonary edema. Redemonstration of pulmonary hamartoma on the right. ACT 112: Negative or not required by law. Electronically signed by: Seng Cleveland M.D. 03/01/2021 12:02 PM
[2021-03-01 13:02] LABS: Calcium 8.4 mg/dl (8.5-10.1); Creatinine Clr Calc Pharmacy 28.9 ml/min; Est GFR (African American) 44.3 ml/min; Est GFR (Non-African American) 38.2 ml/min; Potassium 3.9 mmol/L (3.5-5.1)
[2021-03-01] MEDS ORDERED: FUROSEMIDE 40 MG in SYRINGE 0 ML IV ONE (14:15)
--- NOTE | 2021-03-01 18:28 | Hospitalist Progress Note ---
Date of Service March 01, 2021 Assessment & Plan (1) Falls: Plan: Princess Alcantara is a 80-year-old female with past medical history of hypertension, hypothyroidism, DM 2, GI ulcers, osteoarthritis who was brought to [facility] due to falling, weakness, and confusion. She was admitted for nephrolithiasis and sepsis management. Stable. Metabolic Encephalopathy sec to sepsis Sepsis POA with MSSA bacteremia -Urine culture finalized with more than 3 types of organisms present all high counts recommending a repeat collection, will order but patient has been on antibiotics at this point for over 24 hours -CT A/P with stones. No other source of infection -CXR showing no acute abnormality, incidental pulmonary hematoma in RLL -TTE with normal LV function, no mention of vegetation -Infectious Disease consulted: -BCx q48h until clear -MRI spine neg for epidural abscess - neg -DC ceftriaxone in favor of Ancef -Will need to have PICC line and IV abx arranged for d/c in am. New mild dyspnea - likely 2/2 hypervolemia, supported by 1+ LE edema, crackles noted on auscultation on recheck. No obvious JVD. milder after IV lasix 40mg - IV lasix 40mg in AM w/ potentially starting on 20 mg PO lasix daily x several wks upon discharge homw w/ pcp f/u Right kidney stone - s/p cystoscopy, retrograde pyelogram, stent insertion - 8mm stone right side- no obstruction or hydro noted on CT scan of abdomen - Urine sent after ceftriaxone administration - febrile on arrival to [facility]- follow trend - Urology consulted- appreciate assistance - Continue supportive care, antibiotic therapy, and close monitoring - Can consider tamsulosin and prn Pyridium for urinary symptoms and stent pain - Will arrange outpatient follow-up with urology for definitive stone management - Ancef as above Falls - Frequent falls at home - Unclear cause for falls--dementia with functional decline vs. hypotension with BB and infection - no focal weakness on exam - PT/OT consult for functional evaluations and needs Thrombocytopenia - downtrending 160->120->91->86->88 - likely 2/2 cirrhosis, less suspicious for HIT. if continues to worsen, will check for hemolysis labs and possible smear - continue following cbc Iron deficiency anemia - checked iron profile because of persistent/stable anemia w/ elevated RDW and MPV - iron, TIBC, transferrin are low. Transferrin saturation 10%. Ferritin 87.1. - f/u cbc in outpatient setting in 1 month Diarrhea with incontinence - Episode of diarrhea with incontinence shortly - Per RN had 3 more loose stools, but no incontinence - Diarrhea resolved 03/01/21 - C diff negative - Possibly a side effect of antibiotics--she denies abd pain, n/v - Continue to monitor Cirrhosis -CT A/P showing: - The liver is cirrhotic in morphology and heterogeneous in attenuation. - Splenomegaly and trace perihepatic ascites indicate portal hypertension. - Cholelithiasis. -compensated. follow. Hypothyroidism - Continue Synthroid dose 100mcg daily - TSH normal Hypertension - Hold hctz/valsartan, metoprolol due to sepsis and hypotension. HypoK, HypoMg, HypoPhos - repleted K and Mg. Held IV phos repletion as already hypervolemic and phos lvl likely chronic 2/2 malnutrition DVT prophylaxis: Considered holding Heparin, but given level of thrombocytopenia and imaging suggestive of cirrhosis, will continue heparin dvt PPX Dispo: Tubular Labs telemetry. Dispo waiting on 48 hours of neg blood cultures. Dispo would be home (to son in [place]) w/ home health and PICC line for IV abx. Discussed w/ son at bedside. He initially wanted patient to go to [facility], but after discussion, patient will go with other son in [place]. Updated son from [place] at bedside on 03/01/21. FEN/GI: CC/DM2. Regular diet (has home dentures) No current IV fluids. CODE STATUS: DNR/DNI (2) Kidney stone: (3) Hypothyroidism: (4) HTN (hypertension): (5) Sepsis: (6) Bacteremia: (7) Hypophosphatemia: (8) Thrombocytopenia: (9) Hypomagnesemia: (10) Hypokalemia: (11) Iron deficiency anemia: (12) Dyspnea: Admission and Anticipated Discharge Date Admission Date: February 25, 2021 Supervising Physician Co-Signing Physician Notes Resident Physician Supervision Note: I independently interviewed and examined the patient and verified the presley history and physical, reviewed labs and image studies and agree with resident Dr. Jang findings and care plan. Subjective Mild pain at top of R leg, attributes to laying in bed. Requesting regular diet now she has dentures. Mild SOB, new, intermittent, at rest. Intermittent palpitations. No problems with urination. Diarrhea resolved. SOB unchanged after IV lasix 20 at 1pm. SOB improved after additional IV lasix 40. Review of Systems Review of Systems: See HPI. Other systems reviewed. Physical Exam Physical Exam: Vitals: intermittent tachycardia 90s-100s General: Grossly A&O. NAD. Cooperative. HEENT: Atraumatic, normocephalic. EOMI. No obvious jvd. Pulm: CTAB. No respiratory distress. Cardiac: RRR, 2/6 systolic murmur. Trace BLE pretibial. Abdominal: Nontender, nondistended, soft. Neuro: + pos R slr. Results & Data Results & Data ([facility]) Vital Signs (Past 12 Hours) Vital Signs Temp Pulse Pulse Resp BP BP Pulse Ox 03/01/21 16:51 100 H 03/01/21 15:27 36.6 C 90 18 110/64 97 03/01/21 12:29 36.3 C L 105 H 20 128/66 94 03/01/21 07:21 86 03/01/21 07:12 36.6 C 87 16 119/64 95 Laboratory Results wbc downtrending 11.59->9.9->7.23->6.66. Hb stable 9.1. Plts 86->88. Na 136. K 3.7, will replete. Cr stable 1.57->1.31->1.29. phos crit low 1.4, will replete. blood cultures 02/27/21: NG x 48 hours Cardiac Enzymes 03/01/21 Range/Units 06:09 AST 33 (15-37) U/L CBC 03/01/21 Range/Units 06:09 WBC 6.77 (4.8-10.8) K/uL RBC 3.66 L (4.2-5.4) M/uL Hgb 9.1 L (12.0-16.0) g/dL Hct 29.8 L (37-47) % Plt Count 88 L (130-400) K/uL Neut # (Auto) 4.46 (1.4-6.5) K/uL Lymph # (Auto) 1.13 L (1.2-3.4) K/uL [place] # (Auto) 0.89 H (0.11-0.59) K/uL Eos # (Auto) 0.23 (0-0.5) K/uL Baso # (Auto) 0.01 (0-0.2) K/uL Comprehensive Metabolic Panel 03/01/21 03/01/21 Range/Units 06:09 12:31 Sodium 136 137 (136-145) mmol/L Potassium 3.7 3.9 (3.5-5.1) mmol/L Chloride 108 H 106 (98-107) mmol/L Carbon Dioxide 23 23 (21-32) mmol/L BUN 23 H 24 H (7-18) mg/dl Creatinine 1.29 H 1.33 H (0.6-1.2) mg/dl Glucose 127 H 136 H (70-99) mg/dl Calcium 8.3 L 8.4 L (8.5-10.1) mg/dl AST 33 (15-37) U/L ALT 8 L (12-78) U/L Alkaline Phosphatase 93 (45-117) U/L Total Protein 5.9 L (6.4-8.2) gm/dl Albumin 1.6 L (3.4-5.0) gm/dl Intake and Output 03/01/21 03/01/21 03/01/21 06:59 14:59 22:59 Intake Total 100 / 1370 83.000 / 583.000 500 / 583.000 Balance 100 / 1370 83.000 / 583.000 500 / 583.000 Intake: IV 100 / 1220 83.000 / 83.000 Magnesium Sulfate / D5w 1 gm In 100 / 200 100 ml @ 50 mls/hr IV Q2H [facility] Rx#:[id number] Potassium Phosphate 24 mmol In 83.000 / 83.000 Sodium Chloride 0.9% 500 ml @ 88 mls/hr IV ONE ONE Rx#: [id number] Oral 500 / 500 Other: Weight 63 kg Weight Measurement Method Built in [facility] Diagnostic Findings Chest X-Ray 03/01/21 11:30 XR chest 1V portable CLINICAL HISTORY: SOB, assess for pulm vasc congestion TECHNIQUE: Single frontal radiograph of the chest was obtained. Comparison: Comparison is made to chest one view 02/25/[address] chest 02/25/2021 FINDINGS: No lines and tubes are seen. The cardiomediastinal silhouette is normal. Previously noted nodular density in the right midlung is again seen. This was found to represent a pulmonary hamartoma on prior imaging. No evidence of pleural effusion or pneumothorax. IMPRESSION: No evidence of pulmonary edema. Redemonstration of pulmonary hamartoma on the right. ACT 112: Negative or not required by law. Electronically signed by: Seng Cleveland M.D. 03/01/2021 12:02 PM Resident Activity Tracking Resident Involvement: Resident Care Provided Care Provided: Adult Hospital Medicine
[2021-03-02] MEDS: ceFAZolin 1000MG 1,000 MG/7.5 ML SYR IV SCH ×2 (02:45→15:21)
[2021-03-02 05:53] LABS: Appearance Urine Clear (Clear); Bacteria Urine Automated Negative (Negative); Bilirubin Urine Negative (Negative); Blood Urine Negative (Negative); Color Urine Yellow; Epithelial Cell Urine Auto >30 /lpf (0-5); Glucose Urine UA Negative (Negative); Ketones Urine Trace (Negative); Leukocyte Esterase Urine Trace (Negative); Nitrite Urine Negative (Negative); Protein Urine Negative (Negative); RBC Urine Automated 0-4 /hpf (0-4); Specific Gravity Urine 1.011 (1.000-1.030); Urobilinogen Urine Negative (Negative); pH Urine 5.5 (4.5-7.5)
[2021-03-02] MEDS: LEVOTHYROXINE SODIUM 100 MCG TABLET PO SCH (06:19)
[2021-03-02 07:50] LABS: Hematocrit (blood only) 34.3 % (37-47); Hemoglobin 10.5 g/dL (12.0-16.0); Mean Corpuscular Hemoglobin 25.2 pg (25-34); Mean Corpuscular Hgb Conc 30.6 g/dL (32-36); Mean Corpuscular Volume 82.3 fL (80-100); Platelet Count 134 K/uL (130-400); RDW Coefficient of Variation 18.2 % (11.5-14.5); RDW Standard Deviation 54.6 fL (36.4-46.3); Red Blood Count 4.17 M/uL (4.2-5.4); White Blood Count 8.69 K/uL (4.8-10.8)
[2021-03-02 07:55] LABS: Creatinine Clr Calc Pharmacy 25.5 ml/min; Est GFR (Non-African American) 32.8 ml/min; Potassium 3.9 mmol/L (3.5-5.1)
[2021-03-02 07:56] LABS: Anisocytosis Present; Basophils # (auto) 0.03 K/uL (0-0.2); Basophils % (auto) 0.3 %; Eosinophils % (auto) 2.3 %; Hypochromasia Present; Immature Granulocytes # (auto) 0.16 K/uL (0.00-0.02); Immature Granulocytes % (auto) 1.8 %; Lymphocytes # (auto) 1.86 K/uL (1.2-3.4); Lymphocytes % (auto) 21.4 %; Monocytes # (auto) 1.08 K/uL (0.11-0.59); Monocytes % (auto) 12.4 %; Neutrophils # (auto) 5.36 K/uL (1.4-6.5); Neutrophils % (auto) 61.8 %; Polychromasia 1+
[2021-03-02 07:58] LABS: Albumin Globulin Ratio 0.4 (0.9-2); Bilirubin,Total 0.5 mg/dl (0.2-1); Globulin 4.9 gm/dl (2.5-4.0); Total Protein 6.9 gm/dl (6.4-8.2)
[2021-03-02] MEDS: PANTOprazole 40 MG TAB PO SCH (08:16)
[2021-03-02] MEDS: HEPARIN SOD 5,000 UNIT/0.5 ML VIAL SQ SCH (08:16)
[2021-03-02] MEDS: INSULIN ASPART 100 UNITS/ML 3 ML PEN SC SCH ×2 (08:18→13:16)
--- NOTE | 2021-03-02 15:33 | Discharge Summary ---
Date of Service March 02, 2021 Principal Diagnosis Nephrolithiasis, MSSA bacteremia Discharge Exam GENERAL: A&Ox3. NAD. CHEST/LUNGS: CTAB A/P. No crackles, wheezes, rales, rhonchi. HEART: RRR. No m/g/r. No carotid bruits. ABDOMEN: NT/ND, soft. BS+ x4 EXTREMITIES: No cyanosis, no clubbing, no edema SKIN: Warm and dry. No rashes or lesions. Discharge Data Allergies Allergy/AdvReac Type Severity Reaction Status Date / Time Penicillins Allergy Intermediate Hives Unverified 02/25/21 11:30 metronidazole [From Flagyl] Allergy Mild Nausea Unverified 02/25/21 11:31 Consultations 02/25/21 14:23 ED Decision to Admit Stat 02/25/21 16:22 Consult Urology Routine 02/26/21 11:11 Consult Infectious Diseases Routine Procedures Performed Operation Date: 02/25/21 08:30 Actual Procedures p Cystoscopy, Retrograde Pyelogram, Right Stent Insertion(Right) - Daren Silveira MD Ordered Studies 02/25/21 11:16 CT abd pelvis wo con Stat CT cervical spine wo con Stat CT chest diagnostic wo con Stat CT head/brain wo con Stat 02/25/21 18:53 US liver Routine 02/25/21 19:58 FL retrograde includes kub Stat 02/27/21 15:13 MR cervical spine wo/w con Routine MR lumbar spine wo/w con Routine MR thoracic spine wo/w con Routine Hospital Course (1) Falls: Princess Alcantara is a 80-year-old female with past medical history of hypertension, hypothyroidism, DM 2, GI ulcers, osteoarthritis who was brought to [facility] due to falling, weakness, and confusion. She was admitted for nephrolithiasis and sepsis management. Stable. Metabolic Encephalopathy sec to sepsis Sepsis POA with MSSA bacteremia -Urine culture finalized with more than 3 types of organisms present all high counts recommending a repeat collection, will order but patient has been on antibiotics at this point for over 24 hours -CT A/P with stones. No other source of infection -CXR showing no acute abnormality, incidental pulmonary hematoma in RLL -TTE with normal LV function, no mention of vegetation -Infectious Disease consulted: -BCx q48h until clear -MRI spine neg for epidural abscess - neg -DC ceftriaxone in favor of Ancef -Placed US-guided IV -- continue Ancef 1g IV q12h until 2020 New mild dyspnea - resolved - likely 2/2 hypervolemia, supported by 1+ LE edema, crackles noted on auscultation on recheck. No obvious JVD. milder after IV lasix 40mg - IV lasix 40mg on 03/01 -- symptoms resolved Right kidney stone - s/p cystoscopy, retrograde pyelogram, stent insertion - 8mm stone right side- no obstruction or hydro noted on CT scan of abdomen - Urine sent after ceftriaxone administration - febrile on arrival to [facility]- follow trend - Urology consulted- appreciate assistance - Continue supportive care, antibiotic therapy, and close monitoring - Can consider tamsulosin and prn Pyridium for urinary symptoms and stent pain - Will arrange outpatient follow-up with urology for definitive stone management - Ancef as above Falls - Frequent falls at home - Unclear cause for falls--dementia with functional decline vs. hypotension with BB and infection - no focal weakness on exam - PT/OT consult for functional evaluations and needs Thrombocytopenia - downtrending 160->120->91->86->88 - likely 2/2 cirrhosis, less suspicious for HIT. if continues to worsen - follow as outpatient Iron deficiency anemia - checked iron profile because of persistent/stable anemia w/ elevated RDW and MPV - iron, TIBC, transferrin are low. Transferrin saturation 10%. Ferritin 87.1. - f/u cbc in outpatient setting in 1 month Diarrhea with incontinence - Episode of diarrhea with incontinence shortly - Per RN had 3 more loose stools, but no incontinence - Diarrhea resolved 03/01/21 - C diff negative - Possibly a side effect of antibiotics--she denies abd pain, n/v - Continue to monitor Cirrhosis -CT A/P showing: - The liver is cirrhotic in morphology and heterogeneous in attenuation. - Splenomegaly and trace perihepatic ascites indicate portal hypertension. - Cholelithiasis. -compensated. follow. Hypothyroidism - Continue Synthroid dose 100mcg daily - TSH normal Hypertension - Hold hctz/valsartan, metoprolol due to sepsis and hypotension. (2) Kidney stone: (3) Hypothyroidism: (4) HTN (hypertension): (5) Sepsis: (6) Bacteremia: (7) Hypophosphatemia: (8) Thrombocytopenia: (9) Hypomagnesemia: (10) Hypokalemia: (11) Iron deficiency anemia: (12) Dyspnea: Total Time Total Time Spent Total Time Spent (In Minutes): Less than 30 Discharge Plan Discharge Items Patient Disposition: Home - Home Health Services Reason For Visit: FALLS, WEAKNESS, CONFUSION Discharge Diagnosis: bacteremia Activity: Per Instructions section Non-emergency contact: Primary Care Provider Call non-emergency contact if: you have any medication questions, your symptoms worsen and you have a fever Follow-up/Referrals: Daren Silveira MD [Physician] - Vishal Fischer MD [Resident] - PCP,NO [Primary Care Provider] - Diet: Carb Consistent or DM2 Addtl Attending Provider Instructions: You were admitted to [facility] due to a kidney stone, which ended up causing an infection in your kidney and subsequently spread into your bloodstream. You had surgery to place a stent for your kidney stone--you will need to follow up with Urology for stent removal in the future. Additionally, for your bloodstream infection, you will need IV antibiotics for two weeks. We have arranged for you to finish your treatment outside of the hospital. Please follow up with your primary care provider for continued care and discussion of your hospitalization. Pending Studies at Discharge: No Stand-Alone Forms: My [facility], Smoking Cessation Medications and DC Order Prescriptions: New cefazolin 1 gram recon soln 1 g IV Q12H 11 Days RF: 0 Continued metoprolol tartrate 100 mg Tablet 100 mg PO BID RF: 0 omeprazole 40 mg Capsule,Delayed Release(Dr/Ec) 40 mg PO DAILY RF: 0 levothyroxine 100 mcg Tablet 100 mcg PO QAM RF: 0 alprazolam [Xanax] 0.5 mg Tablet 0.5 mg PO HS PRN (Reason: Anxiety) RF: 0 valsartan-hydrochlorothiazide 320-25 mg Tablet 1 tab PO DAILY RF: 0 Tresiba FlexTouch U-100 100 unit/mL (3 mL) Insulin Pen 0 unit SUBCUT DIRECTED RF: 0 Discharge Orders: Discharge Order (Routine); Ordered 03/02/21 Ordered By: Vishal Martinez/Other Patient Handouts: A1C, Managing Type 2 Diabetes Admission Data Admit Date/Time: 02/25/21 15:07 Attending Provider: Lb Phillip Admit Provider: Abran Gutierrez Primary Care Provider: PCP,NO Other Providers: Abran Gutierrez ; Daren Silveira ; Joselito Jauregui ; Aliya Calle ; Trey Figueroa I. ; Madhu Perez II ; Darleen Kumar ; Rivera Cai ; Wesley Ny ; [facility],Home Health ; [place],Home Care ; [facility] ; [facility] Supervising Physician Co-Signing Physician Notes I personally examined the patient and verified all presley points of history and exam, discussed case, and agree with decision making with Dr Last. Feeling better, feeling up to going home. No new complaints. Expresses a reasonable understanding of her situation. Touched base with case management several times throughout the dayeverything set up for IV antibiotics at home. Vitals noted, in general she is awake and alert pleasant no distress. HEENT normocephalic atraumatic mucous membranes moist. Breathing unlabored no accessory muscle use good effort. Skin shows no rashes no pallor or icterus. Neuro without focal deficits. Ureterolithiasis, this infection including MSSA bacteremianow stable, now status post stenting. Stable for home. Finish out course of antibiotics IV with cefazolin. Appreciate ID recommendations. Otherwise as above Resident Activity Tracking Resident Involvement: Resident Care Provided Care Provided: Adult Hospital Medicine
--- NOTE | 2021-03-02 16:53 | Billing Data ---
Date of Service March 02, 2021 Coding Level of Care Code D/C DAY MANAGEMENT <30 MINS
== END 2021-03-02 17:25 | disposition home health service (06) | DRG 853 ==
LOC: ED 11:00 → 3N 15:07 → SUATTDRO 15:07 → 3N 15:51 → 3E 17:39 → 2N 22:10

== ENCOUNTER 2021-03-18 12:13 | Inpatient (IN) ==
--- NOTE | 2021-03-18 12:37 | Emergency Department Note ---
Impression & Plan Sepsis, Hypomagnesemia, Cough, Thrombocytopenia ED Provider Note Provider: Dany Rogel MD DATE OF SERVICE: 03/18/2021 CHIEF COMPLAINT: Cough, vomiting HISTORY OF PRESENT ILLNESS: Patient is a 80-year-old female past medical history of diabetes, kidney stones, and recent hospitalization with kidney stone and bacteremia reports that she finished her antibiotics last night. States she de veloped over the last 2 to 3 days a bit of a cough and a significant coughing fit occurred this morning. She states this lasted some time and she vomited multiple times clear stuff from this. Denies significant abdominal pain or diarrhea. Denies leg swelling. Patient denies significant nasal congestion or chest pain. Patient denies any abdominal pain at the current time but states that her buttock area is a little bit sore as she is not been walking as much as she previously did. Reported temperature of 99.4 earlier and some became concerned after the coughing episode and sent her here for further evaluation. REVIEW OF SYSTEMS: A total of 10 review of systems was obtained and negative except as stated above in the HPI. PAST MEDICAL HISTORY: As noted above MEDICATIONS: Reviewed home medication list SOCIAL HISTORY: Non-smoker, lives with normally in the [place] area PHYSICAL EXAM: GENERAL: alert and oriented in no acute distress on stretcher but not the best historian and somewhat fatigued in appearance Head: normocephalic and atraumatic EYES: No injection, discharge or icterus. PERRL NECK: Trachea midline. Supple. ENT: Mucous membranes pink and moist. LUNGS: Airway patent. No retractions. Breath sounds clear anteriorly HEART: Regular rate and rhythm. No chest wall tenderness ABDOMEN: Soft and non-tender, without guarding or rebound. No Pierre sign. SKIN: Acyanotic, warm, dry, without rashes EXTREMITIES: Without swelling, tenderness or deformity NEUROLOGICAL: No focal deficits. No aphasia. No facial droop or slurred speech. EK bpm normal sinus rhythm. No PVC or PAC. No acute ST segment elevation or depression. QTC 425. CONTINUOUS CARDIAC MONITORING: was ordered and showed a heart rate of 70s to 90sbpm in normal sinus rhythm Patient's laboratory studies and imaging reviewed. Differential includes Infection, dehydration, metabolic abnormality, hypo/hyperglycemia, electrolyte disturbance, anemia, hypoxia, cardiac sources, intracerebral event, toxicologic, neurologic, as well as other pathologies. 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 Significant increase in white blood cell count today with a mildly elevated lactate. Troponin x1 abnormal. Procalcitonin elevated. Negative flu and Covid testing. Hypomagnesemia noted IV repletion ordered. Given recent MSSA bacteremia discussed with pharmacy and will broadly cover at this time with cefepime and daptomycin. Again the patient was recently hospitalized. CT of the chest as well as CT abdomen pelvis were ordered. No evidence of pneumonia or PE per radiology. CT question some possible splenic infarcts on the CT abdomen pelvis with some gallbladder distention but no Pierre's sign. There is no significant trauma history reported and the patient has a fairly benign abdomen on exam again. Right ureteral stent continues to be in place and no hydronephrosis reported on the CT Given some Tylenol for borderline fever here initially. Not hypoxic or requiring pressors at this point. Given a small amount of IV fluid supplementation with some borderline bl ood pressures transiently here the patient mentating appropriately and does not appear to be in shock. Son at bedside updated; requesting that with the patient's eventual discharge she would likely return to the [place] area at that time. Hospitalist will admit for further evaluation of what appears to be likely recurrent bacteremia. Will need further evaluation for sourcing. Fairly benign abdomen otherwise and doubt acute intra-abdominal surgical needs at this time. DIAGNOSIS: Sepsis, hypomagnesemia, cough, weakness DISPOSITION: Hospitalist will evaluate Patient was agreeable with this plan. Past Med/Surg History Medical History Arthritis Gastric ulcer HTN (hypertension) Hypothyroidism Kidney stone Shoulder pain Social History Smoking Status: Never smoker Second Hand Exposure: No; Hx Alcohol Use: No Hx Substance Use: No Preferred Language: [place] Citizen Communication Ability: Effective Interactive Producer Required: No Beliefs That Will Affect Care: None marital status: Unknown Current Living Situation: Family Feels Safe at Home: Yes Assistive Devices: Walker Allergies Allergies Allergy/AdvReac Type Severity Reaction Status Date / Time Penicillins Allergy Intermediate Hives Unverified 02/25/21 11:30 metronidazole [From Flagyl] Allergy Mild Nausea Unverified 02/25/21 11:31 Home Meds Home Medications Medication Instructions Recorded Confirmed insulin degludec 100 unit/mL (3 0 unit SUBCUT DIRECTED 02/25/21 03/18/21 mL) subcutaneous pen (Tresiba FlexTouch U-100 insulin) levothyroxine 100 mcg tablet 100 mcg PO QAM 02/25/21 03/18/21 metoprolol tartrate 100 mg tablet 100 mg PO BID 02/25/21 03/18/21 omeprazole 40 mg capsule,delayed 40 mg PO DAILY 02/25/21 03/18/21 release valsartan 320 1 tab PO DAILY 02/25/21 03/18/21 mg-hydrochlorothiazide 25 mg tablet escitalopram oxalate 5 mg tablet 5 mg PO QAM 03/18/21 03/18/21 (Lexapro) Results & Data (ED) Vital Signs Vital Signs - 24 hr 03/18/21 12:33 03/18/21 13:04 03/18/21 13:37 Temperature 37.8 C H Temperature Source Oral Pulse Rate 87 Pulse Rate [Finger] 85 Respiratory Rate 20 20 Respiratory Effort / Characteristics Non-Labored Respiratory Depth Normal Respiratory Pattern Regular Blood Pressure 130/44 L Blood Pressure [Left Arm] 119/45 L Blood Pressure Mean 72 Blood Pressure Mean [Left Arm] 69 Pulse Oximetry 88 L 98 96 Oxygen Delivery Method Room Air Room Air Room Air Oxygen Flow Rate 2 Sepsis Recent Fever Within 48 Hours Yes Sepsis New/Unexplained Change in Mental Status No Sepsis Action Taken by Nursing No Action Required Oxygen Flow Rate - Titration 2 Pulse Oximetry Post Tiitration 98 03/18/21 14:49 03/18/21 16:05 03/18/21 16:24 Temperature Temperature Source Pulse Rate Pulse Rate [Finger] 90 83 80 Respiratory Rate 16 18 20 Respiratory Effort / Characteristics Respiratory Depth Normal Respiratory Pattern Blood Pressure Blood Pressure [Left Arm] 84/40 L 100/41 L 100/41 L Blood Pressure Mean Blood Pressure Mean [Left Arm] 54 60 60 Pulse Oximetry 96 98 98 Oxygen Delivery Method Nasal Cannula Nasal Cannula Room Air Oxygen Flow Rate 2 2 Sepsis Recent Fever Within 48 Hours Sepsis New/Unexplained Change in Mental Status Sepsis Action Taken by Nursing Oxygen Flow Rate - Titration Pulse Oximetry Post Tiitration Laboratory Data Result diagrams: 03/18/21 12:40 03/18/21 12:40 Lab Results 1103/18/21 03/18/21 Range/Units 12:15 12:15 12:15 WBC (4.8-10.8) K/uL RBC (4.2-5.4) M/uL Hgb (12.0-16.0) g/dL Hct (37-47) % MCV (80-100) fL MCH (25-34) pg MCHC (32-36) g/dL RDW Std Deviation (36.4-46.3) fL RDW Coeff of Angelica (11.5-14.5) % Plt Count (130-400) K/uL MPV (7.4-10.4) fL Immature Gran % (Auto) % Neut % (Auto) % Lymph % (Auto) % [place] % (Auto) % Eos % (Auto) % Baso % (Auto) % Neut # (Auto) (1.4-6.5) K/uL Lymph # (Auto) (1.2-3.4) K/uL [place] # (Auto) (0.11-0.59) K/uL Eos # (Auto) (0-0.5) K/uL Baso # (Auto) (0-0.2) K/uL Immature Gran # (Auto) (0.00-0.02) K/uL PT (9.0-12.0) Seconds INR (0.9-1.1) Sodium (136-145) mmol/L Potassium (3.5-5.1) mmol/L Chloride (98-107) mmol/L Carbon Dioxide (21-32) mmol/L Anion Gap (3-11) BUN (7-18) mg/dl Creatinine (0.6-1.2) mg/dl Est Cr Clr Drug Dosing ml/min Est GFR ( Amer) ml/min Est GFR (Non-Af Amer) ml/min BUN/Creatinine Ratio (10-20) Glucose (70-99) mg/dl Lactate (0.4-2.0) mmol/L Calcium (8.5-10.1) mg/dl Magnesium (1.8-2.4) mg/dl Total Bilirubin (0.2-1) mg/dl AST (15-37) U/L ALT (12-78) U/L Alkaline Phosphatase (45-117) U/L Troponin I (0-0.045) ng/ml Total Protein (6.4-8.2) gm/dl Albumin (3.4-5.0) gm/dl Globulin (2.5-4.0) gm/dl Albumin/Globulin Ratio (0.9-2) Lipase (73-393) U/L Procalcitonin (0-0.5) ng/ml COVID-19 Eval Order Covid19 at [facility] SARS-CoV-2 (PCR) NEGATIVE (Negative) Influ A Molecular Assay Negative (Negative) Influ B Molecular Assay Negative (Negative) 03/18/21 03/18/21 03/18/21 Range/Units 12:40 12:40 12:40 WBC 16.98 H (4.8-10.8) K/uL RBC 4.08 L (4.2-5.4) M/uL Hgb 10.3 L (12.0-16.0) g/dL Hct 33.3 L (37-47) % MCV 81.6 (80-100) fL MCH 25.2 (25-34) pg MCHC 30.9 L (32-36) g/dL RDW Std Deviation 53.7 H (36.4-46.3) fL RDW Coeff of Angelica 17.9 H (11.5-14.5) % Plt Count 113 L (130-400) K/uL MPV 12.6 H (7.4-10.4) fL Immature Gran % (Auto) 0.2 % Neut % (Auto) 88.5 % Lymph % (Auto) 3.8 % [place] % (Auto) 7.2 % Eos % (Auto) 0.2 % Baso % (Auto) 0.1 % Neut # (Auto) 15.00 H (1.4-6.5) K/uL Lymph # (Auto) 0.65 L (1.2-3.4) K/uL [place] # (Auto) 1.23 H (0.11-0.59) K/uL Eos # (Auto) 0.04 (0-0.5) K/uL Baso # (Auto) 0.02 (0-0.2) K/uL Immature Gran # (Auto) 0.04 H (0.00-0.02) K/uL PT (9.0-12.0) Seconds INR (0.9-1.1) Sodium 133 L (136-145) mmol/L Potassium 3.6 (3.5-5.1) mmol/L Chloride 100 (98-107) mmol/L Carbon Dioxide 28 (21-32) mmol/L Anion Gap 5.0 (3-11) BUN 31 H (7-18) mg/dl Creatinine 1.36 H (0.6-1.2) mg/dl Est Cr Clr Drug Dosing 27.7 ml/min Est GFR ( Amer) 43.1 ml/min Est GFR (Non-Af Amer) 37.2 ml/min BUN/Creatinine Ratio 22.6 H (10-20) Glucose 131 H (70-99) mg/dl Lactate (0.4-2.0) mmol/L Calcium 10.2 H (8.5-10.1) mg/dl Magnesium 1.2 L (1.8-2.4) mg/dl Total Bilirubin 0.9 (0.2-1) mg/dl AST 42 H (15-37) U/L ALT 11 L (12-78) U/L Alkaline Phosphatase 103 (45-117) U/L Troponin I 0.038 (0-0.045) ng/ml Total Protein 7.5 (6.4-8.2) gm/dl Albumin 2.4 L (3.4-5.0) gm/dl Globulin 5.1 H (2.5-4.0) gm/dl Albumin/Globulin Ratio 0.5 L (0.9-2) Lipase 221 (73-393) U/L Procalcitonin 0.74 H (0-0.5) ng/ml COVID-19 Eval Order SARS-CoV-2 (PCR) (Negative) Influ A Molecular Assay (Negative) Influ B Molecular Assay (Negative) 03/18/21 03/18/21 03/18/21 Range/Units 12:40 12:40 14:56 WBC (4.8-10.8) K/uL RBC (4.2-5.4) M/uL Hgb (12.0-16.0) g/dL Hct (37-47) % MCV (80-100) fL MCH (25-34) pg MCHC (32-36) g/dL RDW Std Deviation (36.4-46.3) fL RDW Coeff of Angelica (11.5-14.5) % Plt Count (130-400) K/uL MPV (7.4-10.4) fL Immature Gran % (Auto) % Neut % (Auto) % Lymph % (Auto) % [place] % (Auto) % Eos % (Auto) % Baso % (Auto) % Neut # (Auto) (1.4-6.5) K/uL Lymph # (Auto) (1.2-3.4) K/uL [place] # (Auto) (0.11-0.59) K/uL Eos # (Auto) (0-0.5) K/uL Baso # (Auto) (0-0.2) K/uL Immature Gran # (Auto) (0.00-0.02) K/uL PT 11.9 (9.0-12.0) Seconds INR 1.2 H (0.9-1.1) Sodium (136-145) mmol/L Potassium (3.5-5.1) mmol/L Chloride (98-107) mmol/L Carbon Dioxide (21-32) mmol/L Anion Gap (3-11) BUN (7-18) mg/dl Creatinine (0.6-1.2) mg/dl Est Cr Clr Drug Dosing ml/min Est GFR ( Amer) ml/min Est GFR (Non-Af Amer) ml/min BUN/Creatinine Ratio (10-20) Glucose (70-99) mg/dl Lactate 2.1 H* 1.6 (0.4-2.0) mmol/L Calcium (8.5-10.1) mg/dl Magnesium (1.8-2.4) mg/dl Total Bilirubin (0.2-1) mg/dl AST (15-37) U/L ALT (12-78) U/L Alkaline Phosphatase (45-117) U/L Troponin I (0-0.045) ng/ml Total Protein (6.4-8.2) gm/dl Albumin (3.4-5.0) gm/dl Globulin (2.5-4.0) gm/dl Albumin/Globulin Ratio (0.9-2) Lipase (73-393) U/L Procalcitonin (0-0.5) ng/ml COVID-19 Eval Order SARS-CoV-2 (PCR) (Negative) Influ A Molecular Assay (Negative) Influ B Molecular Assay (Negative) Administered Medications Discontinued Medications Acetaminophen (Acetaminophen 325 Mg Tab) 650 mg PO NOW STA Stop: 03/18/21 14:05 Last Admin: 03/18/21 14:59 Dose: 650 mg Documented by: [id number] Daptomycin 275 mg/ Syringe 5.5 mls @ 2.75 mls/min IV NOW ONE; Protocol Stop: 03/18/21 14:05 Last Admin: 03/18/21 16:21 Dose: 2.75 mls/min Documented by: [id number] Cefepime HCl (Maxipime) 2,000 mg in 20 mls @ 5 mls/min IV NOW STA; Protocol Stop: 03/18/21 14:07 Last Admin: 03/18/21 14:59 Dose: 5 mls/min Documented by: [id number] Magnesium Sulfate/Dextrose (Magnesium Sulfate / D5w) 1 gm in 100 mls @ 200 mls/hr IV Q30M REY Stop: 03/18/21 15:04 Last Infusion: 03/18/21 16:19 Dose: 0 mls/hr Documented by: [id number] Admin: 03/18/21 15:31 Dose: 200 mls/hr Documented by: [id number] Infusion: 03/18/21 15:31 Dose: 0 mls/hr Documented by: [id number] Admin: 03/18/21 14:59 Dose: 200 mls/hr Documented by: [id number] Sodium Chloride (Nss 1000ml) 1,000 mls @ 999 mls/hr IV .Q1H1M ONE Stop: 03/18/21 17:03 Last Infusion: 03/18/21 17:16 Dose: 0 mls/hr Documented by: [id number] Admin: 03/18/21 16:21 Dose: 999 mls/hr Documented by: [id number] Ioversol (Optiray 320 125ml) 114 ml IV ONCE ONE Stop: 03/18/21 14:17 Last Admin: 03/18/21 14:17 Dose: 114 ml Documented by: [id number] Imaging Data Radiologist's Impression: Chest X-Ray 03/18/21 12:33 XR chest 1V portable CLINICAL HISTORY: Dyspnea TECHNIQUE: Single frontal radiograph of the chest was obtained. Comparison: Comparison is made to chest one view 03/01/2021 FINDINGS: No lines and tubes are seen. The cardiomediastinal silhouette is normal. The lungs are clear. No evidence of pleural effusion or pneumothorax. 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 IMPRESSION: No acute chest disease. ACT 112: Negative or not required by law. Electronically signed by: Seng Cleveland M.D. 03/18/2021 2:01 PM Abdomen/Pelvis CT 03/18/21 13:44 CT OF THE ABDOMEN AND PELVIS WITH CONTRAST CLINICAL HISTORY: fever, weak, recent stone/stent COMPARISON STUDY: CT of the abdomen and pelvis February 25, 2021. Right upper quadrant ultrasound February 26, 2021. TECHNIQUE: Following IV administration of 114 mL of Optiray, axial images of the abdomen and pelvis were obtained from the lung bases to the proximal femurs. Images were reviewed in the axial, sagittal, and coronal planes. IV contrast was administered without complication. Automated exposure control was utilized for the study. A dose lowering technique was utilized adhering to the principles of ALARA. FINDINGS: Please note that the chest CT will be reported separately. No pneumatosis, free air or portal venous gas is present. The liver is cirrhotic. No hepatic lesions are identified. Sensitivity for detection of hypervascular lesions is diminished on this exam. Gallstones within the gallbladder are noted. Gallbladder is mildly distended. This is unchanged. There is trace abdominal ascites. There is no pancreatic ductal dilatation. Apparent stranding adjacent to the celiac axis is unchanged. Trace stranding along the pancreatic tail is unchanged. Moderate splenomegaly is noted. Note is made of several peripheral hypointense foci within the spleen which measure up to 3.9 cm. There is an a djacent 2.7 cm linear hypodense focus within the superior aspect of the spleen. There is no perisplenic fluid. These findings were not evident on prior CT. There is no evidence for a bowel obstruction. Colonic diverticulosis is noted without evidence for acute diverticulitis. Right ureteral stent is in place. There is no hydronephrosis. Small bilateral renal calculi are noted. Note is made of 3 distal right ureteral calculi/fragments which measure up to 7 x 4 mm. There is moderate renal cortical thinning. There is no renal abscess. Nephrograms are symmetric. IMPRESSION: 1. Right ureteral stent in place. No hydronephrosis. Three distal right ureteral calculi/fragments which measure up to 7 x 4 mm. 2. Several peripheral hypoechoic enhancing foci within the spleen. These favor splenic infarcts. 2.7 cm linear hypodensity within the superior aspect the spleen also likely reflects a splenic infarct however a splenic laceration could appear similar. No perisplenic fluid. If progressive abdominal pain, follow-up abdominal CT is recommended. 3. Cirrhosis. Splenomegaly and small amount of ascites suggestive of portal hypertension. 4. Cholelithiasis and gallbladder distention, unchanged. These findings do not strongly suggest acute cholecystitis however right upper quadrant ultrasound is recommended if right upper quadrant pain. ACT 112: Negative or not required by law. Electronically signed by: Shelton Childers M.D. 03/18/2021 3:17 PM Chest CTA 03/18/21 13:44 CT angio chest PE protocol CLINICAL HISTORY: PE, sob, fever TECHNIQUE: Multidetector row helical CT of the chest was performed. Coronal and sagittal reformations were obtained. Automated dose lowering techniques and/or adjustment according to patient size were utilized for this exam. Comparison: Comparison is made to chest 02/25/2021 FINDINGS: Lungs and pleura: A 2 cm pulmonary hamartoma is seen on the right lower lobe. Bibasilar atelectasis is seen. Heart and pericardium: Cardiomegaly is seen with biatrial enlargement. Vessels: No evidence of pulmonary embolism. Mediastinum and kate: Unremarkable. Chest wall and lower neck: Unremarkable. Abdomen: For findings below the diaphragm, please refer to CT of the abdomen dated the same. Bones: Degenerative changes in the thoracic spine. IMPRESSION: 1. No evidence of pulmonary embolism. 2. Bilateral atelectasis versus scarring. 3. Right lower lobe hamartoma. ACT 112: Negative or not required by law. Electronically signed by: Seng Cleveland M.D. 03/18/2021 2:30 PM Discharge Plan Visit Data Chief Complaint: Shortness of Breath/Dyspnea ED Provider: Dany Rogel Discharge Problem: Sepsis, Hypomagnesemia, Cough, Thrombocytopenia Patient Disposition: Admitted As Inpatient Discharge Instructions Interventions: ED Discharge Assessment Last Done: 03/18/21 18:19
[2021-03-18 12:57] LABS: Mean Corpuscular Hgb Conc 30.9 g/dL (32-36)
[2021-03-18 13:10] LABS: INR 1.2 (0.9-1.1); Prothrombin Time 11.9 Seconds (9.0-12.0)
[2021-03-18 13:13] LABS: Albumin Level 2.4 gm/dl (3.4-5.0); BUN Creatinine Ratio 22.6 (10-20); Calcium 10.2 mg/dl (8.5-10.1); Creatinine Clr Calc Pharmacy 27.7 ml/min; Est GFR (African American) 43.1 ml/min; Est GFR (Non-African American) 37.2 ml/min; Magnesium 1.2 mg/dl (1.8-2.4); Potassium 3.6 mmol/L (3.5-5.1)
[2021-03-18 13:18] LABS: Albumin Globulin Ratio 0.5 (0.9-2); Bilirubin,Total 0.9 mg/dl (0.2-1); Globulin 5.1 gm/dl (2.5-4.0); Total Protein 7.5 gm/dl (6.4-8.2); Troponin I 0.038 ng/ml (0-0.045)
[2021-03-18 13:21] LABS: Basophils # (auto) 0.02 K/uL (0-0.2); Basophils % (auto) 0.1 %; Eosinophils # (auto) 0.04 K/uL (0-0.5); Eosinophils % (auto) 0.2 %; Hematocrit (blood only) 33.3 % (37-47); Hemoglobin 10.3 g/dL (12.0-16.0); Immature Granulocytes # (auto) 0.04 K/uL (0.00-0.02); Immature Granulocytes % (auto) 0.2 %; Lymphocytes # (auto) 0.65 K/uL (1.2-3.4); Lymphocytes % (auto) 3.8 %; Mean Corpuscular Hemoglobin 25.2 pg (25-34); Mean Corpuscular Volume 81.6 fL (80-100); Mean Platelet Volume 12.6 fL (7.4-10.4); Monocytes # (auto) 1.23 K/uL (0.11-0.59); Monocytes % (auto) 7.2 %; Neutrophils % (auto) 88.5 %; Platelet Count 113 K/uL (130-400); RDW Coefficient of Variation 17.9 % (11.5-14.5); RDW Standard Deviation 53.7 fL (36.4-46.3); Red Blood Count 4.08 M/uL (4.2-5.4); White Blood Count 16.98 K/uL (4.8-10.8)
[2021-03-18 13:22] LABS: Influenza A virus by PCR Negative (Negative); Influenza B virus by PCR Negative (Negative)
--- NOTE | 2021-03-18 13:57 | Electrocardiogram Report ---
Test Reason : Blood Pressure : / mmHG Vent. 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
--- NOTE | 2021-03-18 14:02 | XRay Report ---
XR chest 1V portable CLINICAL HISTORY: Dyspnea TECHNIQUE: Single frontal radiograph of the chest was obtained. Comparison: Comparison is made to chest one view 03/01/2021 FINDINGS: No lines and tubes are seen. The cardiomediastinal silhouette is normal. The lungs are clear. No evid ence of pleural effusion or pneumothorax. 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 IMPRESSION: No acute chest disease. ACT 112: Negative or not required by law. Electronically signed by: Seng Cleveland M.D. 03/18/2021 2:01 PM
[2021-03-18] MEDS ORDERED: ACETAMINOPHEN 325 MG TAB PO STA (14:04)
[2021-03-18] MEDS ORDERED: CEFEPIME 2,000 MG/20 ML VIAL IV STA (14:04)
[2021-03-18] MEDS ORDERED: DAPTOmycin 275 MG in SYRINGE 0 ML IV ONE (14:04)
[2021-03-18] MEDS ORDERED: OPTIRAY 320 125ml IV ONE (14:16)
--- NOTE | 2021-03-18 14:31 | CT Scan Report ---
CT angio chest PE protocol CLINICAL HISTORY: PE, sob, fever TECHNIQUE: Multidetector row helical CT of the chest was performed. Coronal and sagittal reformations were obtained. Automated dose lowering techniques and/or adjustment according to patient size were u tilized for this exam. Comparison: Comparison is made to chest 02/25/2021 FINDINGS: Lungs and pleura: A 2 cm pulmonary hamartoma is seen on the right lower lobe. Bibasilar atelectasis i s seen. Heart and pericardium: Cardiomegaly is seen with biatrial enlargement. Vessels: No evidence of pulmonary embolism. Mediastinum and kate: Unremarkable. Chest wall and lower neck: Unremarkable. Abdomen: For findings below the diaphragm, please refer to CT of the abdomen dated the same. Bones: Degenerative changes in the thoracic spine. IMPRESSION: 1. No evidence of pulmonary embolism. 2. Bilateral atelectasis versus scarring. 3. Right lower lobe hamartoma. ACT 112: Negative or not required by law. Electronically signed by: Seng Cleveland M.D. 03/18/2021 2:30 PM
[2021-03-18] MEDS: MAGNESIUM SULFATE / D5W 1 GM/100 ML BAG IV SCH ×2 (14:59→15:31)
--- NOTE | 2021-03-18 15:19 | CT Scan Report ---
CT OF THE ABDOMEN AND PELVIS WITH CONTRAST CLINICAL HISTORY: fever, weak, recent stone/stent COMPARISON STUDY: CT of the abdomen and pelvis February 25, 2021. Right upper quadrant ultrasound Oct shabnam 2020. TECHNIQUE: Following IV administration of 114 mL of Optiray, axial images of the abdomen and pelvis w ere obtained from the lung bases to the proximal femurs. Images were reviewed in the axial, sagittal, and coronal planes. IV contrast was administered without complication. Automated exposure control w as utilized for the study. A dose lowering technique was utilized adhering to the principles of MARIANA Mendenh[place]. FINDINGS: Please note that the chest CT will be reported separately. No pneumatosis, free air or port al venous gas is present. The liver is cirrhotic. No hepatic lesions are identified. Sensitivity for detection of hypervascular lesions is diminished on this exam. Gallstones within the gallbladder are noted. Gallbladder is mildly distended. This is unchanged. There is trace abdominal ascites. There is no pancreatic ductal dilatation. Apparent stranding adjacent to the celiac axis is unchanged. Trace stranding along the pancreatic tail is unchanged. Moderate splenomegaly is noted. Note is made of se veral peripheral hypointense foci within the spleen which measure up to 3.9 cm. There is an adjacent 2.7 cm linear hypodense focus within the superior aspect of the spleen. There is no perisplenic fluid . These findings were not evident on prior CT. There is no evidence for a bowel obstruction. Colonic diverticulosis is noted without evidence for acute diverticulitis. Right ureteral stent is in place. There is no hydronephrosis. Small bilateral renal calculi are noted. Note is made of 3 distal right u reteral calculi/fragments which measure up to 7 x 4 mm. There is moderate renal cortical thinning. Th ere is no renal abscess. Nephrograms are symmetric. IMPRESSION: 1. Right ureteral stent in place. No hydronephrosis. Three distal right ureteral calculi/fragments wh ich measure up to 7 x 4 mm. 2. Several peripheral hypoechoic enhancing foci within the spleen. These favor splenic infarcts. 2.7 cm linear hypodensity within the superior aspect the spleen also likely reflects a splenic infarct ho wever a splenic laceration could appear similar. No perisplenic fluid. If progressive abdominal pain, follow-up abdominal CT is recommended. 3. Cirrhosis. Splenomegaly and small amount of ascites suggestive of portal hypertension. 4. Cholelithiasis and gallbladder distention, unchanged. These findings do not strongly suggest acute cholecystitis however right upper quadrant ultrasound is recommended if right upper quadrant pain. ACT 112: Negative or not required by law. Electronically signed by: Shelton Childers M.D. 03/18/2021 3:17 PM
[2021-03-18] MEDS ORDERED: SODIUM CHLORIDE 0.9% 1000ML 1,000 ML IV ONE (16:03)
--- NOTE | 2021-03-18 16:18 | History & Physical Report ---
Date of Service March 18, 2021 Assessment & Plan (1) Bacteremia: Plan: Suspected recurrent bacteremia Continue cefepime and daptomycin pending blood culture results If recurrent Staph aureus confirmed recommend REBEKA given murmur on exam and urology consult to consider removal of stent as source (2) Liver cirrhosis: Plan: Noted on last admission. No abdominal pain to suggest SBP. Follow up with GI on discharge. (3) HTN (hypertension): Plan: Hold valsartan/HCTZ, this was not given throughout her last hospitalization but was continued on discharge. Consider not restarting on discharge given hypotension. (4) Hypothyroidism: Plan: TSH 1.9 in February Continue levothyroxine 100 mcg PO daily (5) Kidney stone: Plan: Noted on prior CT A/P Ureteral stent in place from last admission (6) Hypomagnesemia: Plan: Mg level 1.2, 2g Mg sulphate given in ER. Start Mg Ox 400mg PO daily Repeat level in AM (7) Falls: Plan: PT/OT (8) T2DM (type 2 diabetes mellitus): Plan: HbA1C 7.3 in February. No need to repeat this. Hold Tresiba Novolog: Goal BSG Range: Low 110 mg/dL, High 140 mg/dL Correction Factor: 45 mg/dL/unit Carbohydrate ratio = 15 g/unit BSGs ACHS if eating, q6h if npo Plan: VTE prophylaxis - heparin 5000 units SQ BID Diet - T2DM Disposition - admit to med/tele Admission and Anticipated Discharge Date Admission Date: March 18, 2021 History of Present Illness Chief Complaint: Fever Primary Care Provider: Moses Mallory Princess Alcantara is a 80 year old female who presents to the ER with fever. She was recently admitted from February 25 to due to falling, weakness and confusion and was diagnosed with MSSA. She had a kidney stone on that admission although no convincing infection was behind that stone. She underwent ureteral stent insertion. She did not have a REBEKA. Decided upon 2 weeks of IV Ancef as treatment which concluded on March 13. She had been doing better at home up until the last few days. She has been developing more of a cough and started vomiting this morning with a fever (99.4 degrees Fahrenheit) therefore returned to the ER. The patient is unable to given me any significant history and this was taken from the EHR notes and her son over the phone. She reports feeling generally fatigued. In the ER she has a fever of 37.8 degrees celsius. WBC increased to 16.98 from prior 9.73. She was referred to medicine for admission and management of weakness, shortness of breath and infection. Allergies Allergy/AdvReac Type Severity Reaction Status Date / Time Penicillins Allergy Intermediate Hives Unverified 02/25/21 11:30 metronidazole [From Flagyl] Allergy Mild Nausea Unverified 02/25/21 11:31 Home Medications Medication Instructions Recorded Confirmed Type insulin degludec 100 unit/mL (3 0 unit SUBCUT DIRECTED 02/25/21 03/18/21 History mL) subcutaneous pen (Tresiba FlexTouch U-100 insulin) levothyroxine 100 mcg tablet 100 mcg PO QAM 02/25/21 03/18/21 History metoprolol tartrate 100 mg tablet 100 mg PO BID 02/25/21 03/18/21 History omeprazole 40 mg capsule,delayed 40 mg PO DAILY 02/25/21 03/18/21 History release valsartan 320 1 tab PO DAILY 02/25/21 03/18/21 History mg-hydrochlorothiazide 25 mg tablet escitalopram oxalate 5 mg tablet 5 mg PO QAM 03/18/21 03/18/21 History (Lexapro) Past Med/Surg History Medical History (Updated 03/19/21 @ 06:52 by Harpal Deshpande MD) Arthritis Gastric ulcer HTN (hypertension) Hypothyroidism Kidney stone Shoulder pain T2DM (type 2 diabetes mellitus) Social History Smoking Status: Never smoker Second Hand Exposure: No; Hx Alcohol Use: No Hx Substance Use: No Preferred Language: Icelandic Communication Ability: Effective Field Observer Required: No Beliefs That Will Affect Care: None marital status: Unknown Current Living Situation: Family Feels Safe at Home: Yes Assistive Devices: Denture - Upper, Denture - Lower and Hearing Aid - Bilateral Review of Systems Review of Systems: All systems reviewed & are unremarkable except as noted in HPI & below Physical Exam Constitutional: well developed and + frail appearing; + not well nourished and no acute distress Eyes: PERRL, conjunctivae normal, anicteric sclerae ENMT: external ear and nose normal, oropharynx normal Neck: trachea midline, no thyromegaly Respiratory: normal respiratory effort, lungs clear to auscultation Cardiovascular: Rate/Rhythm: regular rate and regular rhythm Heart Sounds: + murmur (4/6 holosystolic murmur loudest at apex) Gastrointestinal (Abdomen): normal bowel sounds, soft, nontender, no hepatosplenomegaly Musculoskeletal: no cyanosis or clubbing, extremities motor strength 5/5 Skin: no rashes, warm and dry no peripheral stigmata of IE Neurologic: moves all extremities and awake; no focal motor deficits (no lateralizing deficit) and not confused Speech / Cognition: normal speech Motor/Sensory: no pronator drift Psychiatric: Orientation: alert, oriented to person (self) and oriented to place; + not oriented to time Affect: euthymic affect Results & Data Results & Data ([facility]) Vital Signs (Past 12 Hours) Vital Signs Temp Pulse Pulse Resp BP BP Pulse Ox 03/18/21 16:05 83 18 100/41 L 98 03/18/21 14:49 90 16 84/40 L 96 03/18/21 13:37 85 20 119/45 L 96 03/18/21 13:04 98 03/18/21 12:33 37.8 C H 87 20 130/44 L 88 L Laboratory Results Abnormal lab results 03/18/21 03/18/21 03/18/21 Range/Units 12:40 12:40 12:40 WBC 16.98 H (4.8-10.8) K/uL RBC 4.08 L (4.2-5.4) M/uL Hgb 10.3 L (12.0-16.0) g/dL Hct 33.3 L (37-47) % MCHC 30.9 L (32-36) g/dL RDW Std Deviation 53.7 H (36.4-46.3) fL RDW Coeff of Angelica 17.9 H (11.5-14.5) % Plt Count 113 L (130-400) K/uL MPV 12.6 H (7.4-10.4) fL Neut # (Auto) 15.00 H (1.4-6.5) K/uL Lymph # (Auto) 0.65 L (1.2-3.4) K/uL [place] # (Auto) 1.23 H (0.11-0.59) K/uL Immature Gran # (Auto) 0.04 H (0.00-0.02) K/uL INR (0.9-1.1) Sodium 133 L (136-145) mmol/L BUN 31 H (7-18) mg/dl Creatinine 1.36 H (0.6-1.2) mg/dl BUN/Creatinine Ratio 22.6 H (10-20) Glucose 131 H (70-99) mg/dl Lactate (0.4-2.0) mmol/L Calcium 10.2 H (8.5-10.1) mg/dl Magnesium 1.2 L (1.8-2.4) mg/dl AST 42 H (15-37) U/L ALT 11 L (12-78) U/L Albumin 2.4 L (3.4-5.0) gm/dl Globulin 5.1 H (2.5-4.0) gm/dl Albumin/Globulin Ratio 0.5 L (0.9-2) Procalcitonin 0.74 H (0-0.5) ng/ml 03/18/21 03/18/21 Range/Units 12:40 12:40 WBC (4.8-10.8) K/uL RBC (4.2-5.4) M/uL Hgb (12.0-16.0) g/dL Hct (37-47) % MCHC (32-36) g/dL RDW Std Deviation (36.4-46.3) fL RDW Coeff of Angelica (11.5-14.5) % Plt Count (130-400) K/uL MPV (7.4-10.4) fL Neut # (Auto) (1.4-6.5) K/uL Lymph # (Auto) (1.2-3.4) K/uL [place] # (Auto) (0.11-0.59) K/uL Immature Gran # (Auto) (0.00-0.02) K/uL INR 1.2 H (0.9-1.1) Sodium (136-145) mmol/L BUN (7-18) mg/dl Creatinine (0.6-1.2) mg/dl BUN/Creatinine Ratio (10-20) Glucose (70-99) mg/dl Lactate 2.1 H* (0.4-2.0) mmol/L Calcium (8.5-10.1) mg/dl Magnesium (1.8-2.4) mg/dl AST (15-37) U/L ALT (12-78) U/L Albumin (3.4-5.0) gm/dl Globulin (2.5-4.0) gm/dl Albumin/Globulin Ratio (0.9-2) Procalcitonin (0-0.5) ng/ml Diagnostic Findings XR chest 1V portable CLINICAL HISTORY: Dyspnea TECHNIQUE: Single frontal radiograph of the chest was obtained. Comparison: Comparison is made to chest one view 03/01/2021 FINDINGS: No lines and tubes are seen. The cardiomediastinal silhouette is normal. The lungs are clear. No evidence of pleural effusion or pneumothorax. 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 IMPRESSION: No acute chest disease. CT angio chest PE protocol CLINICAL HISTORY: PE, sob, fever TECHNIQUE: Multidetector row helical CT of the chest was performed. Coronal and sagittal reformations were obtained. Automated dose lowering techniques and/or adjustment according to patient size were utilized for this exam. Comparison: Comparison is made to chest 02/25/2021 FINDINGS: Lungs and pleura: A 2 cm pulmonary hamartoma is seen on the right lower lobe. Bibasilar atelectasis is seen. Heart and pericardium: Cardiomegaly is seen with biatrial enlargement. Vessels: No evidence of pulmonary embolism. Mediastinum and kate: Unremarkable. Chest wall and lower neck: Unremarkable. Abdomen: For findings below the diaphragm, please refer to CT of the abdomen dated the same. Bones: Degenerative changes in the thoracic spine. IMPRESSION: 1. No evidence of pulmonary embolism. 2. Bilateral atelectasis versus scarring. 3. Right lower lobe hamartoma. CT OF THE ABDOMEN AND PELVIS WITH CONTRAST CLINICAL HISTORY: fever, weak, recent stone/stent COMPARISON STUDY: CT of the abdomen and pelvis February 25, 2021. Right upper quadrant ultrasound February 26, 2021. TECHNIQUE: Following IV administration of 114 mL of Optiray, axial images of the abdomen and pelvis were obtained from the lung bases to the proximal femurs. Images were reviewed in the axial, sagittal, and coronal planes. IV contrast was administered without complication. Automated exposure control was utilized for the study. A dose lowering technique was utilized adhering to the principles of ALARA. FINDINGS: Please note that the chest CT will be reported separately. No pneumatosis, free air or portal venous gas is present. The liver is cirrhotic. No hepatic lesions are identified. Sensitivity for detection of hypervascular lesions is diminished on this exam. Gallstones within the gallbladder are noted. Gallbladder is mildly distended. This is unchanged. There is trace abdominal ascites. There is no pancreatic ductal dilatation. Apparent stranding adjacent to the celiac axis is unchanged. Trace stranding along the pancreatic tail is unchanged. Moderate splenomegaly is noted. Note is made of several peripheral hypointense foci within the spleen which measure up to 3.9 cm. There is an adjacent 2.7 cm linear hypodense focus within the superior aspect of the spleen. There is no perisplenic fluid. These findings were not evident on prior CT. There is no evidence for a bowel obstruction. Colonic diverticulosis is noted without evidence for acute diverticulitis. Right ureteral stent is in place. There is no hydronephrosis. Small bilateral renal calculi are noted. Note is made of 3 distal right ureteral calculi/fragments which measure up to 7 x 4 mm. There is moderate renal cortical thinning. There is no renal abscess. Nephrograms are symmetric. IMPRESSION: 1. Right ureteral stent in place. No hydronephrosis. Three distal right ureteral calculi/fragments which measure up to 7 x 4 mm. 2. Several peripheral hypoechoic enhancing foci within the spleen. These favor splenic infarcts. 2.7 cm linear hypodensity within the superior aspect the spleen also likely reflects a splenic infarct however a splenic laceration could appear similar. No perisplenic fluid. If progressive abdominal pain, follow-up abdominal CT is recommended. 3. Cirrhosis. Splenomegaly and small amount of ascites suggestive of portal hypertension. 4. Cholelithiasis and gallbladder distention, unchanged. These findings do not strongly suggest acute cholecystitis however right upper quadrant ultrasound is recommended if right upper quadrant pain. Medications Administered ER Medications Given: Daptomycin 275mg IV Cefepime 2g IV Acetaminophen 650mg PO Mg sulphate 2g IV NSS 1L bolus ECG Rate (beats per minute): 88 Rhythm: normal sinus Findings: no acute ischemic change Comparison ECG Date: from (February 25, 2021) Change: no significant change Code Status & VTE Plan Code Status DNR/DNI - discussed with patient and son and consistent with prior hospitalization VTE Prophylaxis Plan VTE Prophylaxis will be ordered: Yes PG Care Time/CCT Total # of Minutes Spent Total Time Spent with Patient: Total time spent is greater than 50% in coordination of care (as documented) at patient's floor/unit and/or counseling patient: Coding Level of Care Code 21979 Initial Inpt Care Lvl 3 Diagnoses Bacteremia R78.81 Falls W19.XXXA Liver cirrhosis K74.60 HTN (hypertension) I10 Hypothyroidism E03.9 Kidney stone N20.0 Hypomagnesemia E83.42 T2DM (type 2 diabetes mellitus) E11.9
[2021-03-18] MEDS ORDERED: ONDANSETRON INJ 2 MG/ML 2 ML VIAL IV PRN (18:53)
[2021-03-18] MEDS: SODIUM CHLORIDE 0.9% 1000ML 1,000 ML IV SCH (21:09)
[2021-03-18] MEDS: METOPROLOL TARTRATE 100 MG TAB PO SCH (21:13)
[2021-03-18 21:27] LABS: Appearance Urine Clear (Clear); Bacteria Urine Automated Negative (Negative); Bilirubin Urine Negative (Negative); Blood Urine 3+ (Negative); Color Urine Yellow; Epithelial Cell Urine Auto >30 /lpf (0-5); Glucose Urine UA Negative (Negative); Ketones Urine Trace (Negative); Leukocyte Esterase Urine 1+ (Negative); Nitrite Urine Negative (Negative); Protein Urine Trace (Negative); Specific Gravity Urine > 1.045 (1.000-1.030); Urobilinogen Urine Negative (Negative); WBC Urine Automated >30 /hpf (0-5); pH Urine 5.5 (4.5-7.5)
--- NOTE | 2021-03-19 04:18 | Urology Consultation ---
Date of Consultation March 19, 2021 Assessment & Plan (1) Bacteremia: Patient has been admitted on the hospitalist service proceeding as follows: Due to bacteremia the patient has been initiated on broad-spectrum antibiotics in form of cefepime and daptomycin which should continue Blood and urine cultures have been sent. Her initial blood cultures have shown gram-positive cocci. Recommend continue broad-spectrum antibiotics as noted above until culture results are back which can then dictate further antibiotic therapy There is concern that the patient's retained right ureteral stent is contributing to her bacteremia. We will therefore make the patient n.p.o. for the present time until seen by urology attending this morning to determine if cystoscopy and stent removal should be performed. Supervising Physician Co-Signing Physician Notes I agree with the above documentation. Urinalysis is suspicious for infection, but also suggests an element of contamination, and is likely worsened by the stent being in place. 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 Reynosos has only been in place for ~3 weeks. It appears to be working well as there is essentially no hydronephrosis in the right kidney. She still has the ureteral stone as well, so simply removing the stent would result in an obstruction in the setting of infected urine. She was supposed to have an office visit last week to discuss stone management but did not attend that appointment. In light of all these factors, I would favor maintaining the current ureteral stent, treating with antibiotics and antifungals, then potentially treating the stone with ureteroscopy and laser lithotripsy, and either removing or exchanging the ureteral stent at that time. History of Present Illness Reason for Consultation: Bacteremia with concern for ureteral stents as source Attending Physician: Harpal Deshpande MD History of Present Illness This is a 80-year-old female who presented to the emergency department secondary to a coughing spell that occurred this morning. Because of this she presented to the emergency department. Patient denies any fevers, shakes, chills. She denies any nausea vomiting. She denies any abdominal pain. The patient denies any hematuria or urinary frequency. She does however report occasional dysuria. On 02/25/2021 during a prior admission to [facility] the patient did have blood cultures that showed methicillin sensitive staph aureus. She did have a urine culture on the same date that grew 3 organisms and high counts with no sensitivities performed during this admission the patient was found to have fever with a right ureteral kidney stone for which she underwent a cystoscopy with a right ureteral stent in place. The patient denies any significant pain from the stent. She says that she was not given any instruction concerning stent removal. Because of her history of bacteremia during this admission treating emergency room physician felt further admission was warranted for treatment. The patient has had labs and imaging which I independently reviewed. A CT scan of the chest was negative for pulmonary emboli or pneumonia. A chest x-ray was negative for pneumonia. CT scan of the abdomen and pelvis was performed that showed a right ureteral stent was in place with no hydronephrosis and 3 distal ureteral calculi were present. Splenomegaly with a small amount of ascites suggestive of portal hypertension was noted. There is also some hypoechogenic foci in the spleen concerning for a splenic infarct. Phthisis was noted with gallbladder distention which was similar to what was noted on previous studies. Labs including CBC were white blood cell count was 16.9. Hemoglobin and hematocrit were 10.3 and 33.3 and platelet count was 113,000. A chemistry profile showed sodium was 133 and potassium was 3.6. BUN and creatinine were 31 and 1.3. Urinalysis was performed that showed 3+ blood. This is negative for nitrites. 1+ leukocyte esterase was noted along with 30 white blood cells per high-power field. No bacteria was noted. Budding yeast was noted on this study. A Covid test was performed and was noted to be negative. The patient has had a urine culture which is pending for growth. Blood cultures were checked and showed gram-positive cocci in clusters. At the time of my interview the patient was resting comfortably in bed and she was in no distress or pain. Allergies Allergy/AdvReac Type Severity Reaction Status Date / Time Penicillins Allergy Intermediate Hives Unverified 02/25/21 11:30 metronidazole [From Flagyl] Allergy Mild Nausea Unverified 02/25/21 11:31 Home Medications Medication Instructions Recorded Confirmed Type insulin degludec 100 unit/mL (3 0 unit SUBCUT DIRECTED 02/25/21 03/18/21 History mL) subcutaneous pen (Tresiba FlexTouch U-100 insulin) levothyroxine 100 mcg tablet 100 mcg PO QAM 02/25/21 03/18/21 History metoprolol tartrate 100 mg tablet 100 mg PO BID 02/25/21 03/18/21 History omeprazole 40 mg capsule,delayed 40 mg PO DAILY 02/25/21 03/18/21 History release valsartan 320 1 tab PO DAILY 02/25/21 03/18/21 History mg-hydrochlorothiazide 25 mg tablet escitalopram oxalate 5 mg tablet 5 mg PO QAM 03/18/21 03/18/21 History (Lexapro) Patient History Medical History (Updated 03/19/21 @ 06:52 by Harpal Deshpande MD) Arthritis Gastric ulcer HTN (hypertension) Hypothyroidism Kidney stone Shoulder pain T2DM (type 2 diabetes mellitus) Social History Smoking Status: Never smoker Second Hand Exposure: No; Hx Alcohol Use: No Hx Substance Use: No Preferred Language: Paraguayan Communication Ability: Effective 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 Beliefs That Will Affect Care: None marital status: Unknown Current Living Situation: Family Feels Safe at Home: Yes Assistive Devices: Denture - Upper, Denture - Lower and Hearing Aid - Bilateral Review of Systems Constitutional: no fever and no chills Eyes: no diplopia Ear, Nose, Mouth, Throat: no ear pain Respiratory: + cough Cardiovascular: no chest pain Gastrointestinal: no abdominal pain, no nausea and no vomiting Genitourinary: + dysuria Musculoskeletal: no back pain Integumentary: no rash Neurologic: no localized weakness Physical Exam Constitutional: well developed and well nourished; no acute distress Eyes: no conjunctival abnormality ENMT: Ears: no hearing impairment Mouth: no oropharynx abnormality Neck: trachea midline Respiratory: normal respiratory effort; no respiratory distress and no labored breathing Cardiovascular: Rate/Rhythm: regular rate and regular rhythm Gastrointestinal (Abdomen): Soft, nontender, nondistended. No pain with palpation Musculoskeletal: No calf tenderness Skin: no rashes Neurologic: moves all extremities Psychiatric: A+Ox3, euthymic affect Genitourinary: no CVA tenderness Results & Data ([facility]) Vital Signs (Past 12 Hours) Vital Signs Temp Pulse Pulse Resp BP Pulse Ox 03/19/21 00:32 101 H 03/18/21 23:18 36.8 C 90 20 118/63 92 03/18/21 20:00 36.5 C 76 18 100/51 L 93 03/18/21 19:25 36.6 C 78 20 90/50 L 95 03/18/21 19:00 80 03/18/21 18:07 74 20 97/45 L 98 03/18/21 16:24 80 20 100/41 L 98 PG Care Time/CCT Total # of Minutes Spent Total Time Spent with Patient: Total time spent is greater than 50% in coordination of care (as documented) at patient's floor/unit and/or counseling patient: Coding Level of Care Code 84122 Inpt Consult Level 5 Diagnoses Bacteremia R78.81
[2021-03-19] MEDS: LEVOTHYROXINE SODIUM 100 MCG TABLET PO SCH (06:13)
[2021-03-19] MEDS ORDERED: GLUCAGON FOR INJ 1 MG VIAL SQ PRN (06:50)
[2021-03-19] MEDS ORDERED: GLUCOSE 10 TABS/TUBE PO PRN (06:50)
[2021-03-19] MEDS ORDERED: GLUCOSE 40% GEL 15 GM TUBE PO PRN (06:50)
[2021-03-19] MEDS ORDERED: CARBOHYDRATES FOR HYPOGLYCEMIA PO PRN (06:50)
[2021-03-19] MEDS ORDERED: DEXTROSE 50% 50 ML SYRINGE IV PRN (06:50)
[2021-03-19] MEDS: INSULIN ASPART 100 UNITS/ML 3 ML PEN SC SCH ×4 (08:39→21:13)
[2021-03-19] MEDS: ESCITALOPRAM OXALATE 10 MG TAB PO SCH (08:40)
[2021-03-19] MEDS: MAGNESIUM OXIDE 400 MG TAB PO SCH (08:41)
[2021-03-19] MEDS: PANTOprazole 40 MG TAB PO SCH (08:42)
[2021-03-19] MEDS: METOPROLOL TARTRATE 100 MG TAB PO SCH (08:42)
[2021-03-19 09:10] LABS: Mean Corpuscular Hgb Conc 30.2 g/dL (32-36)
[2021-03-19 09:26] LABS: Hematocrit (blood only) 29.1 % (37-47); Hemoglobin 8.8 g/dL (12.0-16.0); Mean Corpuscular Volume 82.7 fL (80-100); RDW Coefficient of Variation 18.2 % (11.5-14.5); RDW Standard Deviation 55.3 fL (36.4-46.3); Red Blood Count 3.52 M/uL (4.2-5.4); White Blood Count 8.55 K/uL (4.8-10.8)
[2021-03-19 09:36] LABS: BUN Creatinine Ratio 24.7 (10-20); Calcium 9.3 mg/dl (8.5-10.1); Creatinine Clr Calc Pharmacy 27.6 ml/min; Est GFR (African American) 42.3 ml/min; Est GFR (Non-African American) 36.5 ml/min; Magnesium 1.9 mg/dl (1.8-2.4); Potassium 3.8 mmol/L (3.5-5.1)
[2021-03-19 09:48] LABS: Platelet Count 88 K/uL (130-400)
[2021-03-19 09:49] LABS: Basophils # (auto) 0.01 K/uL (0-0.2); Basophils % (auto) 0.1 %; Eosinophils # (auto) 0.04 K/uL (0-0.5); Eosinophils % (auto) 0.5 %; Immature Granulocytes # (auto) 0.04 K/uL (0.00-0.02); Immature Granulocytes % (auto) 0.5 %; Lymphocytes # (auto) 0.87 K/uL (1.2-3.4); Lymphocytes % (auto) 10.2 %; Monocytes # (auto) 0.88 K/uL (0.11-0.59); Monocytes % (auto) 10.3 %; Neutrophils # (auto) 6.71 K/uL (1.4-6.5); Neutrophils % (auto) 78.4 %; Platelet Estimate Decreased (Normal)
[2021-03-19] MEDS: SODIUM CHLORIDE 0.9% 1000ML 1,000 ML IV SCH (11:37)
[2021-03-19] MEDS: SODIUM CHLORIDE 0.9% 500 ML IV SCH ×3 (12:26→19:37)
--- NOTE | 2021-03-19 12:51 | Urology Progress Note ---
Date of Service March 19, 2021 Assessment & Plan (1) Bacteremia: (2) S/P ureteral stent placement: Plan: 80yo F who is s/p recent ureteral stent placement admitted with suspected recurrent bacteremia - CTAP reviewed - Right ureteral stent in place, no hydronephrosis, and three distal right ureteral calculi noted - She is afebrile, non-toxic appearing. - Labs reviewed, Wbc 8.55 today (16.98 yesterday), Hgb 8.8, Creatinine 1.38 (1.36 yesterday) - Urine culture pending; Blood cultures preliminary gram positive cocci clusters- Continues on IV Daptomycin - No acute intervention warranted at this time - Recommend maintaining current ureteral stent as removing the stent would result in an obstruction in the setting of infected urine - Continue supportive care, antibiotic therapy, and close monitoring - follow cultures - Keep outpatient follow-up with urology as scheduled on 03/25 to discuss definitive stone treatment after resolution of infection - Thank you for allowing us to participate in the acute care of Ms. Alcantara. - Please reconsult us with additional questions, concerns or changes in patient status. Admission and Anticipated Discharge Date Admission Date: March 18, 2021 Supervising Physician Co-Signing Physician Notes Discussed patient with RENEE. Agree with plan. Creatinine stable, WBC downtrending. Continue broad spectrum antibiotics. Removing stent at this point would put her at further risk for infection as stones remain and would cause obstructing. Treat through infection and defer stone intervention until future time when clinically stable. Subjective Pt examined at bedside this AM. Awake, resting in bed arrival. No acute distress. Denies any pain or discomfort at present. No fevers overnight. Voiding spontaneously Reports some mild intermittent hematuria and dysuria Has been NPO. Review of Systems Constitutional: as per Subjective / HPI Gastrointestinal: as per Subjective / HPI Genitourinary: as per Subjective / HPI Physical Exam Constitutional: well developed and well nourished; no acute distress and not ill appearing Respiratory: normal respiratory effort and able to speak in complete sentences; no labored breathing and no audible wheezes Gastrointestinal (Abdomen): Inspection/Auscultation: abdomen normal to inspection; abdomen not distended Musculoskeletal: Head/Neck/Chest: normocephalic Skin: No visible rashes or lesions to exposed skin areas Neurologic: moves all extremities and awake Psychiatric: Orientation: alert, oriented x 3 and cooperative Results & Data ([facility]) Vital Signs (Past 12 Hours) Vital Signs Temp Pulse Pulse Resp BP BP Pulse Ox 03/19/21 11:50 36.8 C 68 18 75/36 L 79/41 L 91 03/19/21 11:44 78/36 L 03/19/21 08:00 98 H 03/19/21 07:50 36.9 C 92 H 20 103/63 95 03/19/21 04:55 37.2 C 102 H 20 105/62 94 PG Care Time/CCT Total # of Minutes Spent Total Time Spent with Patient: Total time spent is greater than 50% in coordination of care (as documented) at patient's floor/unit and/or counseling patient: Coding Level of Care Code None Diagnoses Bacteremia R78.81 S/P ureteral stent placement Z96.0
--- NOTE | 2021-03-19 14:18 | Hospitalist Progress Note ---
Date of Service March 19, 2021 Assessment & Plan (1) Bacteremia: Plan: Patient recently completed a course of antibiotics for bacteremia Presents to the hospital with cough and fever No evidence of PNA or UTI Blood cultures obtained Continue cefepime and daptomycin pending blood culture results If recurrent Staph aureus confirmed recommend REBEKA given murmur on exam and urology consult to consider removal of stent as source (2) Liver cirrhosis: Plan: Noted on last admission. No abdominal pain to suggest SBP. Follow up with GI on discharge. (3) HTN (hypertension): Plan: continue to Hold valsartan/HCTZ, this was not given throughout her last hospitalization but was continued on discharge. Consider not restarting on discharge given hypotension. BP still low Will also hold her metoprolol (4) Hypothyroidism: Plan: TSH 1.9 in February Continue levothyroxine 100 mcg PO daily (5) Kidney stone: Plan: Noted on prior CT A/P Ureteral stent in place from last admission No plan to replace stent per urology (6) Hypomagnesemia: Plan: Mg level 1.2, 2g Mg sulphate given in ER. Start Mg Ox 400mg PO daily Repeat level in AM (7) Falls: Plan: PT/OT (8) T2DM (type 2 diabetes mellitus): (9) Cough: Plan: Could be viral No evidence of Pneumonia Plan: VTE prophylaxis - heparin 5000 units SQ BID Diet - T2DM Likely discharge tomorrow if blood cultures remain negative Admission and Anticipated Discharge Date Admission Date: March 18, 2021 Subjective Patient seen and examined this morning, was NPO in anticipation of stent removal Review of Systems Review of Systems: All systems reviewed are negative, apart from the ones contained in the history. Physical Exam Physical Exam: The patient is awake, alert and oriented 3, well developed and well nourished, normocephalic and atraumatic, lying in bed and in no acute distress. HEENT--PERRL, EOMI, mucous membranes and oropharynx mildly dry Neck--supple. No JVD. No bruits. Thyroid normal, trachea midline, no adenopathy. Heart--normal S1 and S2. No murmurs, rubs or gallops. Lungs--clear bilaterally, no respiratory distress, no accessory muscle use. Abdomen--normal bowel sounds and soft. Mild epigastric and left sided abdominal pain Extremities--no cyanosis or clubbing. No edema. Dermatologic--normal skin turgor, normal color, no abnormal lymph nodes, no rash. Neurologic--cranial nerves II through XII grossly intact. Rheumatologic--normal range of motion. Psychiatric--normal affect. Results & Data Results & Data ([facility]) Vital Signs (Past 12 Hours) Vital Signs Temp Pulse Pulse Resp BP BP Pulse Ox 03/19/21 13:17 86/48 L 89/49 L 03/19/21 11:50 98.2 F 68 18 75/36 L 79/41 L 91 03/19/21 11:44 78/36 L 03/19/21 08:00 98 H 03/19/21 07:50 98.4 F 92 H 20 103/63 95 03/19/21 04:55 99.0 F 102 H 20 105/62 94 Laboratory Results Laboratory Results - last 24 hr 03/18/21 03/18/21 03/18/21 12:40 14:56 20:04 WBC RBC Hgb Hct MCV MCH MCHC RDW Std Deviation RDW Coeff of Angelica Plt Count Immature Gran % (Auto) Neut % (Auto) Lymph % (Auto) [place] % (Auto) Eos % (Auto) Baso % (Auto) Neut # (Auto) Lymph # (Auto) [place] # (Auto) Eos # (Auto) Baso # (Auto) Immature Gran # (Auto) Platelet Estimate Sodium Potassium Chloride Carbon Dioxide Anion Gap BUN Creatinine Est Cr Clr Drug Dosing Est GFR ( Amer) Est GFR (Non-Af Amer) BUN/Creatinine Ratio Glucose POC Glucose Lactate 1.6 Calcium Magnesium Urine Color Yellow Urine Appearance Clear Urine pH 5.5 Ur Specific [place] > 1.045 H Urine Protein Trace H Urine Glucose (UA) Negative Urine Ketones Trace H Urine Blood 3+ H Urine Nitrite Negative Urine Bilirubin Negative Urine Urobilinogen Negative Ur Leukocyte Esterase 1+ H Urine WBC (Auto) >30 H Urine RBC (Auto) 10-30 H U Hyaline Cast (Auto) 5-10 H U Epithel Cells (Auto) >30 H Urine Bacteria (Auto) Negative Urine Yeast Budding w/ Hyphae A Bld Cult Staph aureus PCR Positive A Blood Culture MRSA PCR Negative 03/19/21 03/19/21 03/19/21 07:56 08:56 08:56 WBC 8.55 RBC 3.52 L Hgb 8.8 L Hct 29.1 L MCV 82.7 MCH 25.0 MCHC 30.2 L RDW Std Deviation 55.3 H RDW Coeff of Angelica 18.2 H Plt Count 88 L Immature Gran % (Auto) 0.5 Neut % (Auto) 78.4 Lymph % (Auto) 10.2 [place] % (Auto) 10.3 Eos % (Auto) 0.5 Baso % (Auto) 0.1 Neut # (Auto) 6.71 H Lymph # (Auto) 0.87 L [place] # (Auto) 0.88 H Eos # (Auto) 0.04 Baso # (Auto) 0.01 Immature Gran # (Auto) 0.04 H Platelet Estimate Decreased L Sodium 133 L Potassium 3.8 Chloride 103 Carbon Dioxide 23 Anion Gap 8.0 BUN 34 H Creatinine 1.38 H Est Cr Clr Drug Dosing 27.6 Est GFR ( Amer) 42.3 Est GFR (Non-Af Amer) 36.5 BUN/Creatinine Ratio 24.7 H Glucose 101 H POC Glucose 108 H Lactate Calcium 9.3 Magnesium 1.9 Urine Color Urine Appearance Urine pH Ur Specific [place] Urine Protein Urine Glucose (UA) Urine Ketones Urine Blood Urine Nitrite Urine Bilirubin Urine Urobilinogen Ur Leukocyte Esterase Urine WBC (Auto) Urine RBC (Auto) U Hyaline Cast (Auto) U Epithel Cells (Auto) Urine Bacteria (Auto) Urine Yeast Bld Cult Staph aureus PCR Blood Culture MRSA PCR 03/19/21 11:41 WBC RBC Hgb Hct MCV MCH MCHC RDW Std Deviation RDW Coeff of Angelica Plt Count Immature Gran % (Auto) Neut % (Auto) Lymph % (Auto) [place] % (Auto) Eos % (Auto) Baso % (Auto) Neut # (Auto) Lymph # (Auto) [place] # (Auto) Eos # (Auto) Baso # (Auto) Immature Gran # (Auto) Platelet Estimate Sodium Potassium Chloride Carbon Dioxide Anion Gap BUN Creatinine Est Cr Clr Drug Dosing Est GFR ( Amer) Est GFR (Non-Af Amer) BUN/Creatinine Ratio Glucose POC Glucose 120 H Lactate Calcium Magnesium Urine Color Urine Appearance Urine pH Ur Specific [place] Urine Protein Urine Glucose (UA) Urine Ketones Urine Blood Urine Nitrite Urine Bilirubin Urine Urobilinogen Ur Leukocyte Esterase Urine WBC (Auto) Urine RBC (Auto) U Hyaline Cast (Auto) U Epithel Cells (Auto) Urine Bacteria (Auto) Urine Yeast Bld Cult Staph aureus PCR Blood Culture MRSA PCR PG Care Time/CCT Total # of Minutes Spent Total Time Spent with Patient: Total time spent is greater than 50% in coordination of care (as documented) at patient's floor/unit and/or counseling patient: Coding Level of Care Code 16928 Subseq Hosp Care Lvl 2 Diagnoses Bacteremia R78.81 Liver cirrhosis K74.60 HTN (hypertension) I10 Hypothyroidism E03.9 Kidney stone N20.0 Hypomagnesemia E83.42 Falls W19.XXXA T2DM (type 2 diabetes mellitus) E11.9 Cough R05.9
[2021-03-19] MEDS ORDERED: CEFEPIME 2,000 MG in SYRINGE 0 ML IV SCH (15:00)
[2021-03-19] MEDS: HEPARIN SOD 5,000 UNIT/0.5 ML VIAL SQ SCH (21:14)
[2021-03-20] MEDS: LEVOTHYROXINE SODIUM 100 MCG TABLET PO SCH (05:49)
[2021-03-20 07:34] LABS: Mean Corpuscular Hgb Conc 29.7 g/dL (32-36)
[2021-03-20 07:58] LABS: Hematocrit (blood only) 28.3 % (37-47); Hemoglobin 8.4 g/dL (12.0-16.0); Mean Corpuscular Hemoglobin 24.6 pg (25-34); Mean Corpuscular Volume 82.7 fL (80-100); RDW Coefficient of Variation 18.5 % (11.5-14.5); RDW Standard Deviation 56.6 fL (36.4-46.3); Red Blood Count 3.42 M/uL (4.2-5.4); White Blood Count 7.34 K/uL (4.8-10.8)
[2021-03-20 07:59] LABS: Basophils # (auto) 0.01 K/uL (0-0.2); Basophils % (auto) 0.1 %; Eosinophils # (auto) 0.14 K/uL (0-0.5); Eosinophils % (auto) 1.9 %; Immature Granulocytes # (auto) 0.02 K/uL (0.00-0.02); Immature Granulocytes % (auto) 0.3 %; Lymphocytes # (auto) 1.12 K/uL (1.2-3.4); Lymphocytes % (auto) 15.3 %; Monocytes # (auto) 0.89 K/uL (0.11-0.59); Monocytes % (auto) 12.1 %; Neutrophils # (auto) 5.16 K/uL (1.4-6.5); Neutrophils % (auto) 70.3 %; Platelet Count 86 K/uL (130-400); Platelet Estimate Decreased (Normal)
[2021-03-20 08:22] LABS: BUN Creatinine Ratio 25.1 (10-20); Calcium 8.7 mg/dl (8.5-10.1); Creatinine Clr Calc Pharmacy 21.7 ml/min; Est GFR (African American) 31.6 ml/min; Est GFR (Non-African American) 27.2 ml/min; Potassium 3.8 mmol/L (3.5-5.1)
[2021-03-20] MEDS: INSULIN ASPART 100 UNITS/ML 3 ML PEN SC SCH ×4 (08:43→21:12)
[2021-03-20] MEDS: ESCITALOPRAM OXALATE 10 MG TAB PO SCH (08:43)
[2021-03-20] MEDS: MAGNESIUM OXIDE 400 MG TAB PO SCH (08:44)
[2021-03-20] MEDS: PANTOprazole 40 MG TAB PO SCH (08:44)
[2021-03-20] MEDS: HEPARIN SOD 5,000 UNIT/0.5 ML VIAL SQ SCH ×2 (08:44→21:11)
--- NOTE | 2021-03-20 14:18 | Hospitalist Progress Note ---
Date of Service March 20, 2021 Assessment & Plan (1) Bacteremia: Plan: Patient recently completed a course of antibiotics for bacteremia Presents to the hospital with cough and fever No evidence of PNA or UTI Blood cultures obtained positive for gram positive cocci Continue cefepime and daptomycin pending sensitivities Likely to be recurrent staph, REBEKA has been requested Source could be be ureteral stents, which will need to be removed after some days of antibiotics Will re consult Urology (2) Liver cirrhosis: Plan: Follow up with GI on discharge. (3) HTN (hypertension): Plan: Patients BP still very tenuous, will continue to hold antiHTN and also metoprolol (4) Hypothyroidism: Plan: TSH 1.9 in February Continue levothyroxine 100 mcg PO daily (5) Kidney stone: Plan: Noted on prior CT A/P Ureteral stent in place from last admission No plan to replace stent per urology (6) Hypomagnesemia: Plan: Mg level 1.2, 2g Mg sulphate given in ER. Start Mg Ox 400mg PO daily Repeat level in AM (7) Falls: Plan: PT/OT (8) T2DM (type 2 diabetes mellitus): (9) Cough: Plan: Could be viral No evidence of Pneumonia Plan: VTE prophylaxis - heparin 5000 units SQ BID Diet - T2DM Likely discharge tomorrow if blood cultures remain negative Admission and Anticipated Discharge Date Admission Date: March 18, 2021 Subjective Patient seen and examined this morning, no new complaints Review of Systems Review of Systems: All systems reviewed are negative, apart from the ones contained in the history. Physical Exam Physical Exam: The patient is awake, alert and oriented 3, well developed and well nourished, normocephalic and atraumatic, lying in bed and in no acute distress. HEENT--PERRL, EOMI, mucous membranes and oropharynx mildly dry Neck--supple. No JVD. No bruits. Thyroid normal, trachea midline, no adenopathy. Heart--normal S1 and S2. No murmurs, rubs or gallops. Lungs--clear bilaterally, no respiratory distress, no accessory muscle use. Abdomen--normal bowel sounds and soft. Mild epigastric and left sided abdominal pain Extremities--no cyanosis or clubbing. No edema. Dermatologic--normal skin turgor, normal color, no abnormal lymph nodes, no rash. Neurologic--cranial nerves II through XII grossly intact. Rheumatologic--normal range of motion. Psychiatric--normal affect. Results & Data Results & Data ([facility]) Vital Signs (Past 12 Hours) Vital Signs Temp Pulse Pulse Resp BP Pulse Ox 03/20/21 07:24 73 03/20/21 07:15 98.1 F 72 20 91/54 L 94 03/20/21 05:13 98.8 F 77 20 103/59 L 92 Laboratory Results 03/18/21 20:04 Urine Culture - Final Urine,Clean Catch More than three types of organisms present, all moderate counts mixed probable skin derick. No further identifications or sensitivities to follow. Diagnostic Findings Laboratory Results - last 24 hr 03/19/21 03/19/21 03/20/21 16:22 20:08 00:30 WBC RBC Hgb Hct MCV MCH MCHC RDW Std Deviation RDW Coeff of Angelica Plt Count Immature Gran % (Auto) Neut % (Auto) Lymph % (Auto) [place] % (Auto) Eos % (Auto) Baso % (Auto) Neut # (Auto) Lymph # (Auto) [place] # (Auto) Eos # (Auto) Baso # (Auto) Immature Gran # (Auto) Platelet Estimate Sodium Potassium Chloride Carbon Dioxide Anion Gap BUN Creatinine Est Cr Clr Drug Dosing Est GFR ( Amer) Est GFR (Non-Af Amer) BUN/Creatinine Ratio Glucose POC Glucose 208 H 115 H Calcium Stl C. diff Tox B Gene Negative Cdiff Gene 03/20/21 03/20/21 03/20/21 07:14 07:14 07:27 WBC 7.34 RBC 3.42 L Hgb 8.4 L Hct 28.3 L MCV 82.7 MCH 24.6 L MCHC 29.7 L RDW Std Deviation 56.6 H RDW Coeff of Angelica 18.5 H Plt Count 86 L Immature Gran % (Auto) 0.3 Neut % (Auto) 70.3 Lymph % (Auto) 15.3 [place] % (Auto) 12.1 Eos % (Auto) 1.9 Baso % (Auto) 0.1 Neut # (Auto) 5.16 Lymph # (Auto) 1.12 L [place] # (Auto) 0.89 H Eos # (Auto) 0.14 Baso # (Auto) 0.01 Immature Gran # (Auto) 0.02 Platelet Estimate Decreased L Sodium 132 L Potassium 3.8 Chloride 103 Carbon Dioxide 20 L Anion Gap 9.0 BUN 44 H Creatinine 1.76 H D Est Cr Clr Drug Dosing 21.7 Est GFR ( Amer) 31.6 Est GFR (Non-Af Amer) 27.2 BUN/Creatinine Ratio 25.1 H Glucose 89 POC Glucose 94 Calcium 8.7 Stl C. diff Tox B Gene 03/20/21 11:45 WBC RBC Hgb Hct MCV MCH MCHC RDW Std Deviation RDW Coeff of Angelica Plt Count Immature Gran % (Auto) Neut % (Auto) Lymph % (Auto) [place] % (Auto) Eos % (Auto) Baso % (Auto) Neut # (Auto) Lymph # (Auto) [place] # (Auto) Eos # (Auto) Baso # (Auto) Immature Gran # (Auto) Platelet Estimate Sodium Potassium Chloride Carbon Dioxide Anion Gap BUN Creatinine Est Cr Clr Drug Dosing Est GFR ( Amer) Est GFR (Non-Af Amer) BUN/Creatinine Ratio Glucose POC Glucose 101 H Calcium Stl C. diff Tox B Gene PG Care Time/CCT Total # of Minutes Spent Total Time Spent with Patient: Total time spent is greater than 50% in coordination of care (as documented) at patient's floor/unit and/or counseling patient: Coding Level of Care Code 07860 Subseq Hosp Care Lvl 2 Diagnoses Bacteremia R78.81 Liver cirrhosis K74.60 HTN (hypertension) I10 Hypothyroidism E03.9 Kidney stone N20.0 Hypomagnesemia E83.42 Falls W19.XXXA T2DM (type 2 diabetes mellitus) E11.9 Cough R05.9
[2021-03-20] MEDS ORDERED: DAPTOmycin 300 MG in SYRINGE 0 ML IV SCH (16:00)
[2021-03-21] MEDS: LEVOTHYROXINE SODIUM 100 MCG TABLET PO SCH (06:18)
[2021-03-21 08:18] LABS: Mean Corpuscular Hgb Conc 30.6 g/dL (32-36)
[2021-03-21] MEDS: INSULIN ASPART 100 UNITS/ML 3 ML PEN SC SCH ×4 (08:31→20:29)
[2021-03-21] MEDS: MAGNESIUM OXIDE 400 MG TAB PO SCH (08:32)
[2021-03-21] MEDS: ESCITALOPRAM OXALATE 10 MG TAB PO SCH (08:32)
[2021-03-21] MEDS: PANTOprazole 40 MG TAB PO SCH (08:32)
[2021-03-21 08:33] LABS: Calcium 9.1 mg/dl (8.5-10.1); Creatinine Clr Calc Pharmacy 26.9 ml/min; Est GFR (African American) 40.6 ml/min; Potassium 3.7 mmol/L (3.5-5.1)
[2021-03-21] MEDS: HEPARIN SOD 5,000 UNIT/0.5 ML VIAL SQ SCH ×2 (08:33→20:30)
[2021-03-21 08:42] LABS: Hematocrit (blood only) 27.8 % (37-47); Hemoglobin 8.5 g/dL (12.0-16.0); Mean Corpuscular Hemoglobin 25.1 pg (25-34); Mean Corpuscular Volume 82.2 fL (80-100); RDW Coefficient of Variation 18.3 % (11.5-14.5); RDW Standard Deviation 55.8 fL (36.4-46.3); Red Blood Count 3.38 M/uL (4.2-5.4); White Blood Count 5.54 K/uL (4.8-10.8)
[2021-03-21 09:23] LABS: Basophils # (auto) 0.01 K/uL (0-0.2); Basophils % (auto) 0.2 %; Eosinophils # (auto) 0.11 K/uL (0-0.5); Immature Granulocytes # (auto) 0.02 K/uL (0.00-0.02); Immature Granulocytes % (auto) 0.4 %; Lymphocytes # (auto) 1.01 K/uL (1.2-3.4); Lymphocytes % (auto) 18.2 %; Monocytes # (auto) 0.77 K/uL (0.11-0.59); Monocytes % (auto) 13.9 %; Neutrophils # (auto) 3.62 K/uL (1.4-6.5); Neutrophils % (auto) 65.3 %; Platelet Count 84 K/uL (130-400); Platelet Estimate Decreased (Normal)
--- NOTE | 2021-03-21 12:49 | Hospitalist Progress Note ---
Date of Service March 21, 2021 Assessment & Plan (1) Bacteremia: Plan: Patient recently completed a course of antibiotics for bacteremia Presents to the hospital with cough and fever No evidence of PNA or UTI Blood cultures obtained positive for staph aureus Continue cefepime and daptomycin pending sensitivities Likely to be recurrent staph, REBEKA has been done, official read pending will consult ID as soon as the echo and sensitivity results are known (2) Liver cirrhosis: Plan: Follow up with GI on discharge. (3) HTN (hypertension): Plan: Patients BP still very tenuous, will continue to hold antiHTN and also metoprolol (4) Hypothyroidism: Plan: TSH 1.9 in February Continue levothyroxine 100 mcg PO daily (5) Kidney stone: Plan: Noted on prior CT A/P Ureteral stent in place from last admission No plan to replace stent per urology (6) Hypomagnesemia: Plan: Mg level 1.2, 2g Mg sulphate given in ER. Start Mg Ox 400mg PO daily Repeat level in AM (7) Falls: Plan: PT/OT (8) T2DM (type 2 diabetes mellitus): (9) Cough: Plan: Could be viral No evidence of Pneumonia Plan: VTE prophylaxis - heparin 5000 units SQ BID Diet - T2DM Likely discharge tomorrow if blood cultures remain negative Admission and Anticipated Discharge Date Admission Date: March 18, 2021 Subjective Patient seen and examined this morning, desnies chest pain or sob Review of Systems Review of Systems: All systems reviewed are negative, apart from the ones contained in the history. Physical Exam Physical Exam: The patient is awake, alert and oriented 3, well developed and well nourished, normocephalic and atraumatic, lying in bed and in no acute distress. HEENT--PERRL, EOMI, mucous membranes and oropharynx mildly dry Neck--supple. No JVD. No bruits. Thyroid normal, trachea midline, no adenopathy. Heart--normal S1 and S2. No murmurs, rubs or gallops. Lungs--clear bilaterally, no respiratory distress, no accessory muscle use. Abdomen--normal bowel sounds and soft. Mild epigastric and left sided abdominal pain Extremities--no cyanosis or clubbing. No edema. Dermatologic--normal skin turgor, normal color, no abnormal lymph nodes, no rash. Neurologic--cranial nerves II through XII grossly intact. Rheumatologic--normal range of motion. Psychiatric--normal affect. Results & Data Results & Data ([facility]) Vital Signs (Past 12 Hours) Vital Signs Temp Pulse Pulse Resp BP BP Pulse Ox 03/21/21 12:16 98.1 F 75 18 102/60 96 03/21/21 07:49 97 H 03/21/21 07:45 97.9 F 75 19 102/61 95 03/21/21 03:31 98.2 F 98 H 18 119/67 93 Laboratory Results Laboratory Results - last 24 hr 03/20/21 03/20/21 03/21/21 16:47 20:15 07:35 WBC RBC Hgb Hct MCV MCH MCHC RDW Std Deviation RDW Coeff of Angelica Plt Count Immature Gran % (Auto) Neut % (Auto) Lymph % (Auto) [place] % (Auto) Eos % (Auto) Baso % (Auto) Neut # (Auto) Lymph # (Auto) [place] # (Auto) Eos # (Auto) Baso # (Auto) Immature Gran # (Auto) Platelet Estimate Sodium Potassium Chloride Carbon Dioxide Anion Gap BUN Creatinine Est Cr Clr Drug Dosing Est GFR ( Amer) Est GFR (Non-Af Amer) POC Glucose 111 H 166 H 114 H Fasting Glucose Calcium 03/21/21 03/21/21 03/21/21 07:39 07:39 11:48 WBC 5.54 RBC 3.38 L Hgb 8.5 L Hct 27.8 L MCV 82.2 MCH 25.1 MCHC 30.6 L RDW Std Deviation 55.8 H RDW Coeff of Angelica 18.3 H Plt Count 84 L Immature Gran % (Auto) 0.4 Neut % (Auto) 65.3 Lymph % (Auto) 18.2 [place] % (Auto) 13.9 Eos % (Auto) 2.0 Baso % (Auto) 0.2 Neut # (Auto) 3.62 Lymph # (Auto) 1.01 L [place] # (Auto) 0.77 H Eos # (Auto) 0.11 Baso # (Auto) 0.01 Immature Gran # (Auto) 0.02 Platelet Estimate Decreased L Sodium 134 L Potassium 3.7 Chloride 104 Carbon Dioxide 21 Anion Gap 10.0 BUN 40 H Creatinine 1.43 H D Est Cr Clr Drug Dosing 26.9 Est GFR ( Amer) 40.6 Est GFR (Non-Af Amer) 35.0 POC Glucose 105 H Fasting Glucose 92 Calcium 9.1 Diagnostic Findings 03/18/21 12:40 Aerobic Blood Culture - Final Blood Staphylococcus aureus Anaerobic Blood Culture - Final Staphylococcus aureus 03/18/21 12:43 Aerobic Blood Culture - Final Blood Staphylococcus aureus Anaerobic Blood Culture - Final Staphylococcus aureus 03/18/21 20:04 Urine Culture - Final Urine,Clean Catch More than three types of organisms present, all moderate counts mixed probable skin derick. No further identifications or sensitivities to follow. PG Care Time/CCT Total # of Minutes Spent Total Time Spent with Patient: Total time spent is greater than 50% in coordination of care (as documented) at patient's floor/unit and/or counseling patient: Coding Level of Care Code 09108 Subseq Hosp Care Lvl 2 Diagnoses Bacteremia R78.81 Liver cirrhosis K74.60 HTN (hypertension) I10 Hypothyroidism E03.9 Kidney stone N20.0 Hypomagnesemia E83.42 Falls W19.XXXA T2DM (type 2 diabetes mellitus) E11.9 Cough R05.9
[2021-03-22] MEDS: LEVOTHYROXINE SODIUM 100 MCG TABLET PO SCH (05:32)
[2021-03-22] MEDS: HEPARIN SOD 5,000 UNIT/0.5 ML VIAL SQ SCH ×2 (08:01→20:56)
[2021-03-22] MEDS: ESCITALOPRAM OXALATE 10 MG TAB PO SCH (08:02)
[2021-03-22] MEDS: PANTOprazole 40 MG TAB PO SCH (08:02)
[2021-03-22] MEDS: MAGNESIUM OXIDE 400 MG TAB PO SCH (08:03)
[2021-03-22] MEDS: INSULIN ASPART 100 UNITS/ML 3 ML PEN SC SCH ×4 (08:06→20:56)
[2021-03-22 08:38] LABS: BUN Creatinine Ratio 28.3 (10-20); Calcium 8.7 mg/dl (8.5-10.1); Creatinine Clr Calc Pharmacy 32.8 ml/min; Est GFR (African American) 52.8 ml/min; Est GFR (Non-African American) 45.5 ml/min; Potassium 3.7 mmol/L (3.5-5.1)
[2021-03-22 08:48] LABS: Hematocrit (blood only) 28.4 % (37-47); Hemoglobin 8.5 g/dL (12.0-16.0); Mean Corpuscular Hemoglobin 24.7 pg (25-34); Mean Corpuscular Hgb Conc 29.9 g/dL (32-36); Mean Corpuscular Volume 82.6 fL (80-100); Mean Platelet Volume 11.7 fL (7.4-10.4); Platelet Count 102 K/uL (130-400); Platelet Estimate Decreased (Normal); RDW Coefficient of Variation 18.1 % (11.5-14.5); RDW Standard Deviation 55.2 fL (36.4-46.3); Red Blood Count 3.44 M/uL (4.2-5.4); White Blood Count 4.64 K/uL (4.8-10.8)
[2021-03-22] MEDS ORDERED: DAPTOmycin 300 MG in SYRINGE 0 ML IV SCH (10:00)
[2021-03-22] MEDS: ceFAZolin 2000MG 2,000 MG/15 ML SYR IV SCH ×3 (10:36→18:38)
--- NOTE | 2021-03-22 12:22 | Hospitalist Progress Note ---
Date of Service March 22, 2021 Assessment & Plan (1) Bacteremia: Plan: Patient recently completed a course of antibiotics for bacteremia Came back to the hospital with cough and fever Both bottles of Blood cultures obtained positive for staph aureus, MSSA Will change antibiotics to IV Cefazolin Source of the bacteremia could be her ureteral stent, will rule out vegetations REBEKA has been requested Depending on the result, will likely consult ID to give us direction regarding duration of antibiotics (2) Liver cirrhosis: Plan: Stable Follow up with GI on discharge. (3) HTN (hypertension): Plan: Patients BP still very tenuous, will continue to hold antiHTN and also metoprolol Will be vary wary of discharging her home on her home dose of metoprolol 100mg BID (4) Hypothyroidism: Plan: TSH 1.9 in February Continue levothyroxine 100 mcg PO daily (5) Kidney stone: Plan: Noted on prior CT A/P Ureteral stent in place from last admission No plan to replace stent per urology (6) Hypomagnesemia: Plan: resolved (7) Falls: Plan: PT/OT (8) T2DM (type 2 diabetes mellitus): (9) Cough: Plan: Could be viral No evidence of Pneumonia Plan: VTE prophylaxis - heparin 5000 units SQ BID Diet - T2DM Likely discharge tomorrow if blood cultures remain negative Admission and Anticipated Discharge Date Admission Date: March 18, 2021 Subjective Patient seen and examined this morning, sitting up in the chair, denies chest pain or SOB or fever Review of Systems Review of Systems: All systems reviewed are negative, apart from the ones contained in the history. Physical Exam Physical Exam: The patient is awake, alert and oriented 3, well developed and well nourished, normocephalic and atraumatic, lying in bed and in no acute distress. HEENT--PERRL, EOMI, mucous membranes and oropharynx mildly dry Neck--supple. No JVD. No bruits. Thyroid normal, trachea midline, no adenopathy. Heart--normal S1 and S2. No murmurs, rubs or gallops. Lungs--clear bilaterally, no respiratory distress, no accessory muscle use. Abdomen--normal bowel sounds and soft. Mild epigastric and left sided abdominal pain Extremities--no cyanosis or clubbing. No edema. Dermatologic--normal skin turgor, normal color, no abnormal lymph nodes, no rash. Neurologic--cranial nerves II through XII grossly intact. Rheumatologic--normal range of motion. Psychiatric--normal affect. Results & Data Results & Data ([facility]) Vital Signs (Past 12 Hours) Vital Signs Temp Pulse Pulse Resp BP BP Pulse Ox 03/22/21 11:40 97.9 F 91 H 20 114/63 95 03/22/21 07:20 98.1 F 95 H 16 130/69 96 03/22/21 07:08 92 H 03/22/21 03:33 98.1 F 87 18 118/66 95 03/22/21 00:55 99 H Laboratory Results 03/18/21 12:40 Aerobic Blood Culture - Final Blood Staphylococcus aureus Anaerobic Blood Culture - Final Staphylococcus aureus 03/18/21 12:43 Aerobic Blood Culture - Final Blood Staphylococcus aureus Anaerobic Blood Culture - Final Staphylococcus aureus 03/18/21 20:04 Urine Culture - Final Urine,Clean Catch More than three types of organisms present, all moderate counts mixed probable skin derick. No further identifications or sensitivities to follow. Diagnostic Findings Laboratory Results - last 24 hr 03/21/21 03/21/21 03/22/21 16:20 20:29 07:38 WBC 4.64 L RBC 3.44 L Hgb 8.5 L Hct 28.4 L MCV 82.6 MCH 24.7 L MCHC 29.9 L RDW Std Deviation 55.2 H RDW Coeff of Angelica 18.1 H Plt Count 102 L MPV 11.7 H Platelet Estimate Decreased L Sodium Potassium Chloride Carbon Dioxide Anion Gap BUN Creatinine Est Cr Clr Drug Dosing Est GFR ( Amer) Est GFR (Non-Af Amer) BUN/Creatinine Ratio Glucose POC Glucose 168 H 107 H Calcium 03/22/21 03/22/21 03/22/21 07:38 07:52 11:45 WBC RBC Hgb Hct MCV MCH MCHC RDW Std Deviation RDW Coeff of Angelica Plt Count MPV Platelet Estimate Sodium 137 Potassium 3.7 Chloride 106 Carbon Dioxide 22 Anion Gap 9.0 BUN 33 H Creatinine 1.15 Est Cr Clr Drug Dosing 32.8 Est GFR ( Amer) 52.8 Est GFR (Non-Af Amer) 45.5 BUN/Creatinine Ratio 28.3 H Glucose 88 POC Glucose 99 97 Calcium 8.7 PG Care Time/CCT Total # of Minutes Spent Total Time Spent with Patient: Total time spent is greater than 50% in coordination of care (as documented) at patient's floor/unit and/or counseling patient: Coding Level of Care Code 80117 Subseq Hosp Care Lvl 2 Diagnoses Bacteremia R78.81 Liver cirrhosis K74.60 HTN (hypertension) I10 Hypothyroidism E03.9 Kidney stone N20.0 Hypomagnesemia E83.42 Falls W19.XXXA T2DM (type 2 diabetes mellitus) E11.9 Cough R05.9
[2021-03-23] MEDS: ceFAZolin 2000MG 2,000 MG/15 ML SYR IV SCH ×3 (02:07→18:46)
[2021-03-23] MEDS: LEVOTHYROXINE SODIUM 100 MCG TABLET PO SCH (06:03)
[2021-03-23] MEDS: INSULIN ASPART 100 UNITS/ML 3 ML PEN SC SCH ×4 (08:46→20:00)
[2021-03-23] MEDS: MAGNESIUM OXIDE 400 MG TAB PO SCH (08:47)
[2021-03-23] MEDS: ESCITALOPRAM OXALATE 10 MG TAB PO SCH (08:47)
[2021-03-23] MEDS: HEPARIN SOD 5,000 UNIT/0.5 ML VIAL SQ SCH ×2 (08:47→19:55)
[2021-03-23] MEDS: PANTOprazole 40 MG TAB PO SCH (08:48)
[2021-03-23 10:50] LABS: Basophils # (auto) 0.02 K/uL (0-0.2); Basophils % (auto) 0.4 %; Eosinophils # (auto) 0.16 K/uL (0-0.5); Eosinophils % (auto) 2.8 %; Hematocrit (blood only) 32.2 % (37-47); Hemoglobin 9.6 g/dL (12.0-16.0); Immature Granulocytes # (auto) 0.03 K/uL (0.00-0.02); Immature Granulocytes % (auto) 0.5 %; Mean Corpuscular Hemoglobin 24.7 pg (25-34); Mean Corpuscular Hgb Conc 29.8 g/dL (32-36); Mean Corpuscular Volume 82.8 fL (80-100); Mean Platelet Volume 11.2 fL (7.4-10.4); Monocytes # (auto) 0.77 K/uL (0.11-0.59); Monocytes % (auto) 13.7 %; Neutrophils # (auto) 3.36 K/uL (1.4-6.5); Neutrophils % (auto) 59.6 %; Platelet Count 147 K/uL (130-400); RDW Coefficient of Variation 18.1 % (11.5-14.5); RDW Standard Deviation 55.3 fL (36.4-46.3); Red Blood Count 3.89 M/uL (4.2-5.4); White Blood Count 5.64 K/uL (4.8-10.8)
[2021-03-23 11:07] LABS: Creatinine Clr Calc Pharmacy 32.9 ml/min; Est GFR (African American) 53.3 ml/min
[2021-03-23] MEDS ORDERED: FOLIC ACID 1 MG in SYRINGE 9.8 ML IV ONE (13:45)
--- NOTE | 2021-03-23 18:03 | Anesthesiology Consultation ---
Date of Service March 23, 2021 Assessment & Plan (1) Encounter for pre-operative examination: Chart Review Chart Review: Acceptable Risk for Surgery and Patient NOT seen in Pre Admission Testing Consults Requested none History Height/Weight Height: 5 ft Weight: 59.8 kg Allergies Allergy/AdvReac Type Severity Reaction Status Date / Time Penicillins Allergy Intermediate Hives Unverified 02/25/21 11:30 metronidazole [From Flagyl] Allergy Mild Nausea Unverified 02/25/21 11:31 Medications Home Medications Medication Instructions Recorded Confirmed Last Taken insulin degludec 100 unit/mL (3 0 unit SUBCUT DIRECTED 02/25/21 03/18/21 Unknown mL) subcutaneous pen (Tresiba FlexTouch U-100 insulin) levothyroxine 100 mcg tablet 100 mcg PO QAM 02/25/21 03/18/21 Unknown metoprolol tartrate 100 mg tablet 100 mg PO BID 02/25/21 03/18/21 Unknown omeprazole 40 mg capsule,delayed 40 mg PO DAILY 02/25/21 03/18/21 Unknown release valsartan 320 1 tab PO DAILY 02/25/21 03/18/21 Unknown mg-hydrochlorothiazide 25 mg tablet escitalopram oxalate 5 mg tablet 5 mg PO QAM 03/18/21 03/18/21 Unknown (Lexapro) Active Medications Generic Name Dose Route Start Last Admin Trade Name Raúlq PRN Reason Stop Dose Admin Escitalopram Oxalate 5 mg 03/19/21 09:00 03/23/21 08:47 Escitalopram Oxalate 10 Mg Tab PO 04/18/21 08:59 5 mg QAM REY Administration Heparin Sodium (Porcine) 5,000 units 03/19/21 21:00 03/23/21 08:47 Heparin Sod 5,000 Unit/0.5 Ml Vial SQ 04/18/21 20:59 5,000 units Q12 REY Administration Cefazolin Sodium 2,000 mg in 15 mls @ 3.75 mls/min 03/22/21 10:00 03/23/21 10:47 Ancef 2000mg IV 04/05/21 09:59 3.75 mls/min Q8H REY Administration Protocol Insulin Aspart 0 units 03/19/21 07:30 03/23/21 17:12 Insulin Aspart 100 Units/Ml 3 Ml Pen SC 04/18/21 07:29 Not Given ACHS REY Levothyroxine Sodium 100 mcg 03/19/21 06:30 03/23/21 06:03 Levothyroxine Sodium 100 Mcg Tablet PO 04/18/21 06:29 100 mcg DAILYBB REY Administration Magnesium Oxide 400 mg 03/19/21 09:00 03/23/21 08:47 Magnesium Oxide 400 Mg Tab PO 04/18/21 08:59 400 mg QAM REY Administration Pantoprazole Sodium 40 mg 03/19/21 09:00 03/23/21 08:48 Pantoprazole 40 Mg Tab PO 04/18/21 08:59 40 mg DAILY REY Administration Past Medical History Medical History Arthritis Gastric ulcer HTN (hypertension) Hypothyroidism Kidney stone Shoulder pain T2DM (type 2 diabetes mellitus) Social History Smoking Status: Never smoker Hx Alcohol Use: No Hx Substance Use: No substance use type: does not use Physical Exam Vital Signs Last Vital Signs Temp 98.2 F 03/23/21 15:32 Pulse 80 03/23/21 15:32 Resp 18 03/23/21 15:32 BP 130/54 L 03/23/21 15:32 Pulse Ox 96 03/23/21 15:32 Testing Laboratory Results 03/23/21 10:23 03/23/21 10:23 PT 11.9 Seconds (9.0-12.0) 03/18/21 12:40 INR 1.2 (0.9-1.1) H 03/18/21 12:40 Urine Color Yellow 03/18/21 20:04 Urine Appearance Clear (Clear) 03/18/21 20:04 Urine pH 5.5 (4.5-7.5) 03/18/21 20:04 Ur Specific [place] > 1.045 (1.000-1.030) H 03/18/21 20:04 Urine Protein Trace (Negative) H 03/18/21 20:04 Urine Glucose (UA) Negative (Negative) 03/18/21 20:04 Urine Ketones Trace (Negative) H 03/18/21 20:04 Urine Nitrite Negative (Negative) 03/18/21 20:04 Ur Leukocyte Esterase 1+ (Negative) H 03/18/21 20:04 Urine WBC (Auto) >30 /hpf (0-5) H 03/18/21 20:04 Urine RBC (Auto) 10-30 /hpf (0-4) H 03/18/21 20:04 U Hyaline Cast (Auto) 5-10 /lpf (0-5) H 03/18/21 20:04 U Epithel Cells (Auto) >30 /lpf (0-5) H 03/18/21 20:04 Urine Bacteria (Auto) Negative (Negative) 03/18/21 20:04 03/18/21 12:40 Aerobic Blood Culture - Final Blood Staphylococcus aureus Anaerobic Blood Culture - Final Staphylococcus aureus 03/18/21 12:43 Aerobic Blood Culture - Final Blood Staphylococcus aureus Anaerobic Blood Culture - Final Staphylococcus aureus 03/18/21 20:04 Urine Culture - Final Urine,Clean Catch More than three types of organisms present, all moderate counts mixed probable skin derick. No further identifications or sensitivities to follow. 03/23/21 03/23/21 03/23/21 16:32 11:48 07:51 POC Glucose 105 H 118 H 99 Electrocardiogram Date: 03/18/21 Findings: + NSR @ and + pertinent finding Normal sinus rhythm Inferior infarct (cited on or before 25-FEB-2021) Abnormal ECG When compared with ECG of 25-FEB-2021 18:40, No significant change was found Chest X-Ray Date: 03/18/21 Findings: + NAD Echocardiogram Date: 02/26/21 EF: 60-65 LV Function: normal Valvular Disease: + MS (mild)
--- NOTE | 2021-03-23 18:59 | Ultrasound Report ---
BILATERAL LOWER EXTREMITY VENOUS DOPPLER HISTORY: Acute pain and swelling of the lower legs b/l LE edema, eval DVT COMPARISON STUDY: None. FINDINGS: There is normal compressibility, flow, and augmentation within the bilateral lower extremit y deep venous systems. 2.0 x 2.5 x 7.0 cm left-sided Tomlinson's cyst. Subcutaneous edema of the lower legs. IMPRESSION: No DVT within the right or left lower extremity. ACT 112: Negative or not required by law. Electronically signed by: Ismael Thomson M.D. 03/23/2021 6:58 PM
--- NOTE | 2021-03-23 19:40 | Hospitalist Progress Note ---
Date of Service March 23, 2021 Assessment & Plan (1) Septicemia: Plan: During previous admission (02/25 to 03/02) was diagnosed with MSSA bacteremia. Source ? was presumed urinary tract in the setting of an obstructing renal stone s/p stent placement. however, urine culture during that admission and also during this admission w/o staph or other pathogen. She now has recurrent MSSA bacteremia/septicemia despite IV abx course following that February admission. WBC count has improved with appropriate IV abx (ancef). Suspect she may have seeded the blood via the skin on right baires (ulcers x 2). Obtain repeat blood cultures x 2 today. Sed rate noted. Has significant systolic murmur on exam along with splenic abnormalities on CT (suspect septic emboli) - all concerning for SBE. Spoke with Dr Montejo from cardiology - will attempt to obtain REBEKA tomorrow. Formal consult placed to Dr Montejo and anesthesia in preparation for REBEKA. NPO after MN tonight. (2) Bacteremia: Plan: doubt urinary tract as source skin the most likely source r/o SBE - see #1 above repeat blood cx's today for sterility (3) Liver cirrhosis: Plan: likely the cause of her LE edema need to classification counselor patient about this diagnosis (4) HTN (hypertension): Plan: BPs controlled today OFF of her usual meds follow (5) Hypothyroidism: Plan: TSH 1.9 in February 2021 Continue levothyroxine 100 mcg PO daily (6) Kidney stone: Plan: RIGHT. s/p stent placement during prior admission. Ureteral stent in proper positioning on most recent CT Urology consult appreciated; no plans for stent replacement repeat urine cx this admission negative (7) Hypomagnesemia: Plan: resolved (8) Falls: Plan: PT/OT (9) T2DM (type 2 diabetes mellitus): Plan: a1c 7.3% last admission cont novolog SSI (10) Cough: Plan: recent imaging w/o pneumonia COVID testing negative no cough during the visit today follow (11) Folate deficiency: Plan: replace 1mg IV/PO daily x 30 days (12) Anemia: Plan: folate def blood draws from back to back admissions if she has SBE that, too, can cause anemia follow/trend (13) Murmur: Plan: see #1 above REBEKA likely tomorrow (14) Edema: Plan: suspect 2nd to cirrhosis recent 2D echo with preserved EF and she otherwise does not appear volume overloaded obtained LE venous dopplers today - NEGATIVE for DVT (15) Tinea pedis: Plan: start ketoconazole cream BID to both feet Plan: VTE prophylaxis - heparin 5000 units SQ BID, but hold starting in am in anticipation of REBEKA son updated by phone today Admission and Anticipated Discharge Date Admission Date: March 18, 2021 Subjective tele overnight wnl patient states that perhaps ~1 month ago she had fallen and had skin ulcerations near her right knee / right baires these have healed she doesn't recall any cellulitis no recent dental work does not have any joint replacement hardware or other hardware (pacer, stimulator device, pain pump, etc) she continues to have fatigue and mild appetite loss denies pain in any location does not recall any physician ever telling her she has a murmur Review of Systems Review of Systems: gen - fatigue, appetite loss but no fevers/chills (but does state "I've been cold lately") CV - no chest pain, no orthopnea; +edema of legs pulm - no cough but has had dyspnea since she noted edema a few weeks ago GI - no abd pain, nausea or emesis Physical Exam Physical Exam: gen - sitting in chair comfortably, NAD, pleasant mouth - MMM, no lesions skin - healed ulcers (each dime sized) x 2 on right baires just below right knee; no cellulitis any location, no rash; severe dry skin/tinea pedis b/l feet neck - no JVD heart - 3/6 systolic murmur LSB; RRR, s1 s2 lungs - CTA b/l abd - soft NT ND BS+; no HSM ext - 1-2+ edema b/l, pulses 2+ b/l psych - a/o x 3 Results & Data Results & Data ([facility]) Vital Signs (Past 12 Hours) Vital Signs Temp Pulse Pulse Resp BP Pulse Ox 03/23/21 15:32 36.8 C 80 18 130/54 L 96 03/23/21 12:00 36.6 C 79 18 123/64 99 03/23/21 11:27 72 Laboratory Results Laboratory Results - last 24 hr 03/22/21 03/23/21 03/23/21 20:40 07:51 10:23 WBC 5.64 RBC 3.89 L Hgb 9.6 L Hct 32.2 L MCV 82.8 MCH 24.7 L MCHC 29.8 L RDW Std Deviation 55.3 H RDW Coeff of Angelica 18.1 H Plt Count 147 MPV 11.2 H Immature Gran % (Auto) 0.5 Neut % (Auto) 59.6 Lymph % (Auto) 23.0 [place] % (Auto) 13.7 Eos % (Auto) 2.8 Baso % (Auto) 0.4 Neut # (Auto) 3.36 Lymph # (Auto) 1.30 [place] # (Auto) 0.77 H Eos # (Auto) 0.16 Baso # (Auto) 0.02 Immature Gran # (Auto) 0.03 H ESR Creatinine Est Cr Clr Drug Dosing Est GFR ( Amer) Est GFR (Non-Af Amer) POC Glucose 117 H 99 Folate 03/23/21 03/23/21 03/23/21 10:23 10:23 10:23 WBC RBC Hgb Hct MCV MCH MCHC RDW Std Deviation RDW Coeff of Angelica Plt Count MPV Immature Gran % (Auto) Neut % (Auto) Lymph % (Auto) [place] % (Auto) Eos % (Auto) Baso % (Auto) Neut # (Auto) Lymph # (Auto) [place] # (Auto) Eos # (Auto) Baso # (Auto) Immature Gran # (Auto) ESR 74 H Creatinine 1.14 Est Cr Clr Drug Dosing 32.9 Est GFR ( Amer) 53.3 Est GFR (Non-Af Amer) 46.0 POC Glucose Folate 5.30 L 03/23/21 03/23/21 11:48 16:32 WBC RBC Hgb Hct MCV MCH MCHC RDW Std Deviation RDW Coeff of Angelica Plt Count MPV Immature Gran % (Auto) Neut % (Auto) Lymph % (Auto) [place] % (Auto) Eos % (Auto) Baso % (Auto) Neut # (Auto) Lymph # (Auto) [place] # (Auto) Eos # (Auto) Baso # (Auto) Immature Gran # (Auto) ESR Creatinine Est Cr Clr Drug Dosing Est GFR ( Amer) Est GFR (Non-Af Amer) POC Glucose 118 H 105 H Folate PG Care Time/CCT Total # of Minutes Spent Total Time Spent with Patient: Total time spent is greater than 50% in coordination of care (as documented) at patient's floor/unit and/or counseling patient: Coding Level of Care Code 50234 Subseq Hosp Care Lvl 3 Diagnoses Bacteremia R78.81 Liver cirrhosis K74.60 HTN (hypertension) I10 Hypothyroidism E03.9 Kidney stone N20.0 Hypomagnesemia E83.42 Falls W19.XXXA T2DM (type 2 diabetes mellitus) E11.9 Cough R05.9 Folate deficiency E53.8 Anemia D64.9 Murmur R01.1 Edema R60.9 Tinea pedis B35.3 Septicemia A41.9
[2021-03-23] MEDS: KETOCONAZOLE 2% CR 15 GM TUBE EXT SCH (19:57)
[2021-03-24] MEDS: ceFAZolin 2000MG 2,000 MG/15 ML SYR IV SCH ×3 (02:52→17:31)
[2021-03-24] MEDS: LEVOTHYROXINE SODIUM 100 MCG TABLET PO SCH (06:30)
[2021-03-24 07:36] LABS: Hematocrit (blood only) 31.6 % (37-47); Hemoglobin 9.6 g/dL (12.0-16.0); Mean Corpuscular Hemoglobin 25.1 pg (25-34); Mean Corpuscular Hgb Conc 30.4 g/dL (32-36); Mean Corpuscular Volume 82.7 fL (80-100); Mean Platelet Volume 11.5 fL (7.4-10.4); Platelet Count 174 K/uL (130-400); RDW Coefficient of Variation 18.1 % (11.5-14.5); RDW Standard Deviation 55.9 fL (36.4-46.3); Red Blood Count 3.82 M/uL (4.2-5.4); White Blood Count 7.79 K/uL (4.8-10.8)
[2021-03-24 08:07] LABS: BUN Creatinine Ratio 18.4 (10-20); Calcium 8.9 mg/dl (8.5-10.1); Creatinine Clr Calc Pharmacy 35.7 ml/min; Est GFR (African American) 57.6 ml/min; Est GFR (Non-African American) 49.7 ml/min; Potassium 3.7 mmol/L (3.5-5.1)
[2021-03-24] MEDS: KETOCONAZOLE 2% CR 15 GM TUBE EXT SCH ×2 (09:00→20:23)
[2021-03-24] MEDS: INSULIN ASPART 100 UNITS/ML 3 ML PEN SC SCH ×4 (10:00→20:22)
[2021-03-24] MEDS: FOLIC ACID 1 MG in SYRINGE 9.8 ML IV SCH (10:00)
[2021-03-24] MEDS ORDERED: BENZOCAINE/TETRACAIN/BUTAM 50 APPLN/5 GM CAN EXT ONE (10:01)
[2021-03-24] MEDS ORDERED: PROPOFOL IV EMULSION 10 MG/ML 20 ML VIAL IV ONE (10:09)
[2021-03-24] MEDS ORDERED: LIDOCAINE 2% 2 ML VIAL/AMP(20MG/ML) INFIL ONE (10:12)
--- NOTE | 2021-03-24 12:13 | Anesthesiology Progress Note ---
Date of Service March 24, 2021 Anesthesia Post Procedure Vital Signs Vital Signs: Temp Pulse Pulse Resp BP BP Pulse Ox 03/24/21 11:53 97.9 F 98 H 18 122/65 96 03/24/21 11:15 101 H 16 162/91 H 95 03/24/21 11:00 105 H 16 113/50 L 95 03/24/21 10:20 106 H 20 149/73 H 100 03/24/21 08:17 87 03/24/21 06:40 97.7 F 91 H 20 106/61 96 03/24/21 04:41 97.9 F 92 H 20 128/72 97 03/23/21 23:39 98.2 F 106 H 20 117/62 96 03/23/21 20:00 98.2 F 98 H 98 H 132/72 95 03/23/21 15:32 98.2 F 80 18 130/54 L 96 Transfer of Care Handoff Completed per policy Notes Mental Status: alert / awake / arousable and participated in evaluation Patient Amnestic to Procedure: Yes Nausea / Vomiting: adequately controlled Pain: adequately controlled Airway Patency, RR, SpO2: stable & adequate BP & HR: stable & adequate Hydration State: stable & adequate Anesthetic Complications: no major complications apparent and Pt Satisfied with anesthetic care
--- NOTE | 2021-03-24 12:16 | XCELERA ---
[id number]
[2021-03-24] MEDS: PANTOprazole 40 MG TAB PO SCH (13:46)
[2021-03-24] MEDS: MAGNESIUM OXIDE 400 MG TAB PO SCH (13:47)
[2021-03-24] MEDS: ESCITALOPRAM OXALATE 10 MG TAB PO SCH (13:47)
--- NOTE | 2021-03-24 18:09 | Cardiology Consultation ---
Date of Consultation March 24, 2021 Assessment & Plan (1) Mitral valve vegetation: (2) Subacute bacterial endocarditis (SBE): (3) Bacteremia due to methicillin susceptible Staphylococcus aureus (MSSA): Patient with apparent subacute bacterial endocarditis with methicillin sensitive Staph aureus. Fortunately, her hematologic parameters are improving with resolved leukocytosis/thrombocytopenia and improving hemoglobin. She looks quite well clinically, but there is some concern about the mitral vegetation transiently impairing mitral inflow. If the vegetation should change in size or morphology, she could develop acute congestive heart failure or embolic phenomenon. She is currently on cefazolin, likely she will need a PICC line with long-term antibiotics. Would obtain infectious disease consultation for guidance on duration of therapy and optimal antibiotic agent. She would like to return to the [place] area. When she does so, she should have cardiology follow-up with serial echocardiograms to monitor the size and hopefully diminution of her mitral vegetation. She does not have evidence of major valve dysfunction at this time, there is no ring abscess, she has not had embolic phenomenon, and although she has a fair sized vegetation, given her advanced age and comorbidities operative intervention for this indication alone is not likely warranted. No specific new recommendations. Will follow along with you. History of Present Illness Reason for Consultation: ?SBE Requesting Physician: Harpal Zhang Attending Physician: Harpal Zhang History of Present Illness 80-year-old woman with history of hepatic cirrhosis, hypertension, nephrolithiasis, and hypothyroidism who was admitted late February 2021 with weakness and confusion and found to have bacteremia with methicillin sensitive staph aureus. She had a kidney stone and underwent ureteral stent insertion there was treated with 2 weeks of IV Ancef. She was readmitted 03/18/2021 with low-grade fever, cough, and vomiting and found to have leukocytosis and blood cultures positive for methicillin sensitive staph aureus. She was evaluated by cardiology for subacute bacterial endocarditis. Overall, patient notes a mild sense of fatigue recently and anorexia, but other acosta feels well. She has a very mild sore throat (underwent REBEKA earlier today), but was eating lunch when I saw her earlier and had no dysphagia. She denies any chest pain, dyspnea, subjective palpitations, presyncope, or syncope. Transesophageal echocardiogram today showed apparent vegetation on the mitral valve. Allergies Allergy/AdvReac Type Severity Reaction Status Date / Time Penicillins Allergy Intermediate Hives Unverified 02/25/21 11:30 metronidazole [From Flagyl] Allergy Mild Nausea Unverified 02/25/21 11:31 Home Medications Medication Instructions Recorded Confirmed Type insulin degludec 100 unit/mL (3 0 unit SUBCUT DIRECTED 02/25/21 03/18/21 History mL) subcutaneous pen (Tresiba FlexTouch U-100 insulin) levothyroxine 100 mcg tablet 100 mcg PO QAM 02/25/21 03/18/21 History metoprolol tartrate 100 mg tablet 100 mg PO BID 02/25/21 03/18/21 History omeprazole 40 mg capsule,delayed 40 mg PO DAILY 02/25/21 03/18/21 History release valsartan 320 1 tab PO DAILY 02/25/21 03/18/21 History mg-hydrochlorothiazide 25 mg tablet escitalopram oxalate 5 mg tablet 5 mg PO QAM 03/18/21 03/18/21 History (Lexapro) Patient History Medical History Arthritis Gastric ulcer HTN (hypertension) Hypothyroidism Kidney stone Shoulder pain T2DM (type 2 diabetes mellitus) Social History Smoking Status: Never smoker Second Hand Exposure: No; Hx Alcohol Use: No Hx Substance Use: No Preferred Language: Bulgarian Communication Ability: Effective Passenger Relations Representative Required: No Beliefs That Will Affect Care: None marital status: Current Living Situation: Family Feels Safe at Home: Yes Assistive Devices: Walker Physical Exam Physical Exam: Mildly obese elderly white female in no distress. BP normotensive. Pulse 100 bpm and regular. Skin: No obvious stigmata of SBE, no ecchymoses or generalized lesions. HEENT: unremarkable. Neck: Jugular venous pulse at the clavicle, no carotid bruits. Lungs: clear bilaterally. Cardiac: regular/borderline tachycardic rhythm, accentuated S1, normal S2, 2/6 apical holosystolic murmur, no diastolic murmur or gallop. Abdomen: benign. Extremities: 1+ pretibial edema, pulses intact. Neurologic: normal affect and conversation nonfocal. Results & Data ([facility]) Vital Signs (Past 12 Hours) Vital Signs Temp Pulse Pulse Resp BP BP Pulse Ox 03/24/21 16:46 100 H 03/24/21 15:26 97.7 F 108 H 18 131/64 97 03/24/21 11:53 97.9 F 98 H 18 122/65 96 03/24/21 11:15 101 H 16 162/91 H 95 03/24/21 11:00 105 H 16 113/50 L 95 03/24/21 10:20 106 H 20 149/73 H 100 03/24/21 08:17 87 03/24/21 06:40 97.7 F 91 H 20 106/61 96 Laboratory Results Labs notable for initial leukocytosis which resolved. Hemoglobin 9.6. Initial thrombocytopenia which resolved. Normal electrolytes, BUN 20, creatinine 1.07. Troponin negative on admission. Procalcitonin 0.74 on admission. 2/2 blood cultures with methicillin sensitive staph aureus on admission. Diagnostic Findings ECG on admission showed sinus rhythm at 88 bpm and was unremarkable. Chest x-ray unremarkable. Chest CT with no evidence of pulmonary embolism. Bilateral atelectasis and right lower lobe hamartoma noted. Transesophageal echocardiogram today showed a 0.5 cm x 1.5 cm mobile mass on the atrial side of the anterior mitral leaflet consistent with vegetation. Mild mitral regurgitation. Mitral inflow velocity suggests transient functional mid diastolic mitral stenosis from the vegetation. PG Care Time/CCT Total # of Minutes Spent Total Time Spent with Patient: Total time spent is greater than 50% in coordination of care (as documented) at patient's floor/unit and/or counseling patient: Coding Level of Care Code 10869 Inpt Consult Level 4 Diagnoses Mitral valve vegetation I33.0 Subacute bacterial endocarditis (SBE) I33.0 Bacteremia due to methicillin susceptible Staphylococcus aureus (MSSA) R78.81; B95.61
--- NOTE | 2021-03-24 19:26 | Hospitalist Progress Note ---
Date of Service March 24, 2021 Assessment & Plan (1) Subacute bacterial endocarditis (SBE): Plan: MSSA SBE of mitral valve. source - likely the skin ulcers of right baires (developed these ~1 month ago). will need at least 6 weeks of IV abx therapy. formal ID consult requested. appreciate cardiology consultation. will need cardiology f/u post-d/c. son reports recent altered MS - could simply be delirium from her septicemia/SBE. can't exclude septic emboli to the brain - thus, obtain MRI brain. cont IV ancef - await abx recommendations from ID. of note - patient does not have any hardware in joints, no pacer, etc repeat blood cx's from yesterday thus far negative. no PICC line until we know for sure these blood cultures are negative. (2) Mitral valve vegetation: Plan: c/w SBE - see above. splenic lesions likely septic emboli. see above re: MRI Brain. (3) Septicemia: Plan: During previous admission (02/25 to 03/02) was diagnosed with MSSA bacteremia. Source ? was presumed to be the urinary tract in the setting of an obstructing renal stone s/p stent placement. however, urine culture during that admission and also during this admission w/o staph or other pathogen. She now has recurrent MSSA bacteremia/septicemia despite IV abx course following that February admission. WBC count has improved with appropriate IV abx (ancef). Suspect she may have seeded the blood via the skin on right baires (ulcers x 2). She has REBEKA-confirmed endocarditis of mitral valve. At this time no indication for surgical intervention. see discussion above. ID consult. (4) Bacteremia: Plan: doubt urinary tract as source skin the most likely source repeat blood cx's today for sterility (5) Liver cirrhosis: Plan: likely the cause of her LE edema need to curriculum counselor patient about this diagnosis son made aware of this suspected diagnosis etiology? fatty liver --> GLASER? (6) HTN (hypertension): Plan: BPs controlled today OFF of her usual meds follow (7) Hypothyroidism: Plan: TSH 1.9 in February 2021 Continue levothyroxine 100 mcg PO daily (8) Kidney stone: Plan: RIGHT. s/p stent placement during prior admission. Ureteral stent in proper positioning on most recent CT Urology consult appreciated; no plans for stent replacement this admission treat SBE and septicemia in meantime repeat urine cx this admission negative (9) Hypomagnesemia: Plan: resolved (10) Falls: Plan: PT/OT (11) T2DM (type 2 diabetes mellitus): Plan: a1c 7.3% last admission cont novolog SSI (12) Cough: Plan: recent imaging w/o pneumonia COVID testing negative I have not heard her cough at any point during my visits with her o2 sats wnl (13) Folate deficiency: Plan: replace 1mg IV/PO daily x 30 days (14) Anemia: Plan: folate def blood draws from back to back admissions and likely SBE is the biggest culprit trend H/H every 2-3 days for stability (15) Murmur: Plan: 2nd to SBE with resulting MR (16) Edema: Plan: suspect 2nd to cirrhosis recent 2D echo with preserved EF and she otherwise does not appear volume overloaded obtained LE venous dopplers today - NEGATIVE for DVT (17) Tinea pedis: Plan: ketoconazole cream BID to both feet (18) Metabolic encephalopathy: Plan: 2nd to #1, #3 MRI brain - r/o septic emboli Plan: VTE prophylaxis - heparin 5000 units SQ BID - can resume son updated by phone today (son in [place]) discussed care with cardiology and social work son in [facility] requests we try to d/c patient back to [facility] with him where she can get her IV abx this will be logistically challenging Admission and Anticipated Discharge Date Admission Date: March 18, 2021 Subjective patient underwent REBEKA this am showing mitral valve vegetation - 1.5cm in size saw patient after this procedure - she was resting comfortably, sitting in the chair denied any complaints other than feeling lonely and bored appetite still poor no fevers/chills again asks about LE edema Review of Systems Review of Systems: gen - no fevers, chills CV - no cp pulm - mild CHRIS GI - no abd pain/N/V Physical Exam Physical Exam: gen - sitting in chair comfortably, NAD, pleasant mouth - MMM, no lesions skin - healed ulcers (each dime sized) x 2 on right baires just below right knee neck - no JVD heart - 3/6 systolic murmur LSB; RRR, s1 s2 lungs - CTA b/l abd - soft NT ND BS+; no HSM ext - 1+ edema b/l, pulses 2+ b/l psych - a/o x 3 Results & Data Results & Data ([facility]) Vital Signs (Past 12 Hours) Vital Signs Temp Pulse Pulse Resp BP Pulse Ox 03/24/21 19:09 36.8 C 96 H 18 117/64 96 03/24/21 16:46 100 H 03/24/21 15:26 36.5 C 108 H 18 131/64 97 03/24/21 11:53 36.6 C 98 H 18 122/65 96 03/24/21 11:15 101 H 16 162/91 H 95 03/24/21 11:00 105 H 16 113/50 L 95 03/24/21 10:20 106 H 20 149/73 H 100 03/24/21 08:17 87 Laboratory Results Laboratory Results - last 24 hr 03/23/21 03/23/21 03/24/21 19:59 20:24 06:45 WBC 7.79 RBC 3.82 L Hgb 9.6 L Hct 31.6 L MCV 82.7 MCH 25.1 MCHC 30.4 L RDW Std Deviation 55.9 H RDW Coeff of Angelica 18.1 H Plt Count 174 MPV 11.5 H Sodium Potassium Chloride Carbon Dioxide Anion Gap BUN Creatinine Est Cr Clr Drug Dosing Est GFR ( Amer) Est GFR (Non-Af Amer) BUN/Creatinine Ratio Glucose POC Glucose 142 H 134 H Calcium 03/24/21 03/24/21 03/24/21 06:45 07:43 11:40 WBC RBC Hgb Hct MCV MCH MCHC RDW Std Deviation RDW Coeff of Angelica Plt Count MPV Sodium 138 Potassium 3.7 Chloride 105 Carbon Dioxide 24 Anion Gap 8.0 BUN 20 H Creatinine 1.07 Est Cr Clr Drug Dosing 35.7 Est GFR ( Amer) 57.6 Est GFR (Non-Af Amer) 49.7 BUN/Creatinine Ratio 18.4 Glucose 114 H POC Glucose 115 H 108 H Calcium 8.9 03/24/21 16:30 WBC RBC Hgb Hct MCV MCH MCHC RDW Std Deviation RDW Coeff of Angelica Plt Count MPV Sodium Potassium Chloride Carbon Dioxide Anion Gap BUN Creatinine Est Cr Clr Drug Dosing Est GFR ( Amer) Est GFR (Non-Af Amer) BUN/Creatinine Ratio Glucose POC Glucose 168 H Calcium PG Care Time/CCT Total # of Minutes Spent Total Time Spent with Patient: Total time spent is greater than 50% in coordination of care (as documented) at patient's floor/unit and/or counseling patient: Coding Level of Care Code 79042 Subseq Hosp Care Lvl 3 Diagnoses Septicemia A41.9 Bacteremia R78.81 Liver cirrhosis K74.60 HTN (hypertension) I10 Hypothyroidism E03.9 Kidney stone N20.0 Hypomagnesemia E83.42 Falls W19.XXXA T2DM (type 2 diabetes mellitus) E11.9 Cough R05.9 Folate deficiency E53.8 Anemia D64.9 Murmur R01.1 Edema R60.9 Tinea pedis B35.3 Subacute bacterial endocarditis (SBE) I33.0 Mitral valve vegetation I33.0 Metabolic encephalopathy G93.41
[2021-03-25] MEDS: ceFAZolin 2000MG 2,000 MG/15 ML SYR IV SCH ×3 (01:34→17:29)
[2021-03-25] MEDS: LEVOTHYROXINE SODIUM 100 MCG TABLET PO SCH (06:22)
[2021-03-25] MEDS: PANTOprazole 40 MG TAB PO SCH (09:15)
[2021-03-25] MEDS: MAGNESIUM OXIDE 400 MG TAB PO SCH (09:15)
[2021-03-25] MEDS: KETOCONAZOLE 2% CR 15 GM TUBE EXT SCH ×2 (09:16→20:50)
[2021-03-25] MEDS: ESCITALOPRAM OXALATE 10 MG TAB PO SCH (09:17)
[2021-03-25 09:36] LABS: Creatinine Clr Calc Pharmacy 32.6 ml/min; Est GFR (African American) 51.2 ml/min; Est GFR (Non-African American) 44.1 ml/min
[2021-03-25] MEDS ORDERED: HEPARIN SOD 5,000 UNIT/0.5 ML VIAL SQ ONE (10:00)
[2021-03-25] MEDS: INSULIN ASPART 100 UNITS/ML 3 ML PEN SC SCH ×4 (11:12→20:48)
[2021-03-25] MEDS: FOLIC ACID 1 MG in SYRINGE 9.8 ML IV SCH (11:16)
[2021-03-25] MEDS ORDERED: POTASSIUM CHLORIDE CRTAB 20 MEQ TABCR PO STA (13:00)
[2021-03-25] MEDS ORDERED: LORazepam 0.5 MG TAB PO STA (13:00)
--- NOTE | 2021-03-25 13:01 | Hospitalist Progress Note ---
Date of Service March 25, 2021 Assessment & Plan (1) Subacute bacterial endocarditis (SBE): Plan: MSSA SBE of mitral valve. source - likely the skin ulcers of right baires (developed these ~1 month ago). will need at least 6 weeks of IV abx therapy - ID advising ancef q8h. ID consult appreciated. appreciate cardiology consultation. will need cardiology f/u post-d/c. son reports recent altered MS - could simply be delirium from her septicemia/SBE. can't exclude septic emboli to the brain - thus, ordered MRI brain - hopefully can get it today. her delirium seems resolved, however, and neuro exam is wnl. cont IV ancef. of note - patient does not have any hardware in joints, no pacer, etc repeat blood cx's from 03/23 remain neg. if still neg tomorrow (72 hours) then will get PICC line. son wanting pt to return to [place] to complete abx as that is her permanent home. will need to contact her PCP to arrange this and see if PCP is agreeable to managing. (2) Mitral valve vegetation: Plan: c/w SBE - see above. splenic lesions likely septic emboli. see above re: MRI Brain. (3) Septicemia: Plan: During previous admission (02/25 to 03/02) was diagnosed with MSSA bacteremia. Source ? was presumed to be the urinary tract in the setting of an obstructing renal stone s/p stent placement. however, urine culture during that admission and also during this admission w/o staph or other pathogen. She now has recurrent MSSA bacteremia/septicemia despite IV abx course following that February admission. WBC count has improved with appropriate IV abx (ancef). Suspect she may have seeded the blood via the skin on right baires (ulcers x 2). She has REBEKA-confirmed endocarditis of mitral valve. At this time no indication for surgical intervention. see discussion above. ID consult appreciated. Cards consult appreciated. (4) Bacteremia: Plan: doubt urinary tract as source skin the most likely source repeat blood cx's negative as above (5) Liver cirrhosis: Plan: likely the cause of her LE edema patient aware of dx son made aware of this suspected diagnosis etiology? fatty liver --> GLASER? lasix 20mg po x 1 today bmp am (6) HTN (hypertension): Plan: BPs controlled today OFF of her usual meds follow (7) Hypothyroidism: Plan: TSH 1.9 in February 2021 Continue levothyroxine 100 mcg PO daily (8) Kidney stone: Plan: RIGHT. s/p stent placement during prior admission. Ureteral stent in proper positioning on most recent CT Urology consult appreciated; no plans for stent replacement this admission treat SBE and septicemia in meantime repeat urine cx this admission negative (9) Hypomagnesemia: Plan: resolved (10) Falls: Plan: PT/OT (11) T2DM (type 2 diabetes mellitus): Plan: a1c 7.3% last admission cont novolog SSI (12) Cough: Plan: recent imaging w/o pneumonia COVID testing negative I have not heard her cough at any point during my visits with her o2 sats wnl (13) Folate deficiency: Plan: replace 1mg IV/PO daily x 30 days (14) Anemia: Plan: folate def blood draws from back to back admissions and likely SBE is the biggest culprit trend H/H every 2-3 days for stability (15) Murmur: Plan: 2nd to SBE with resulting MR (16) Edema: Plan: suspect 2nd to cirrhosis recent 2D echo with preserved EF and she otherwise does not appear volume overloaded obtained LE venous dopplers - NEGATIVE for DVT lasix 20mg po x 1 and re-eval tomorrow (17) Tinea pedis: Plan: ketoconazole cream BID to both feet (18) Metabolic encephalopathy: Plan: 2nd to #1, #3 MRI brain - r/o septic emboli Plan: VTE prophylaxis - heparin 5000 units SQ BID son updated by phone yesterday (son in [place]) discussed care with cardiology and social work son in [facility] requests we try to d/c patient back to [facility] with him where she can get her IV abx this will be logistically challenging but certainly will try Admission and Anticipated Discharge Date Admission Date: March 18, 2021 Subjective tele stable overnight pt refused MRI last night we discussed trying again- she is claustrophobic, willing to try if premedicated she feels good appetite better today no headache, chest pain, dyspnea Review of Systems Review of Systems: gen - no fevers or chills CV - no orthopnea pulm - no cough/congestion; minimal CHRIS intermittently GI - no N/V/D Physical Exam Physical Exam: gen - sitting in chair comfortably, NAD, pleasant mouth - MMM, no lesions skin - healed ulcers (each dime sized) x 2 on right baires just below right knee neck - no JVD heart - 3/6 systolic murmur LSB; RRR, s1 s2 - murmur unchanged lungs - CTA b/l abd - soft NT ND BS+; no HSM ext - 1+ edema b/l feet and ankles only, pulses 2+ b/l psych - a/o x 3 musculo - no synovitis of ankles Results & Data Results & Data ([facility]) Vital Signs (Past 12 Hours) Vital Signs Temp Pulse Pulse Resp BP BP Pulse Ox 03/25/21 11:16 36.6 C 95 H 20 117/64 95 03/25/21 07:35 87 03/25/21 07:34 36.6 C 97 H 20 119/69 98 03/25/21 04:04 36.6 C 96 H 20 112/62 96 03/25/21 03:20 87 Laboratory Results Laboratory Results - last 24 hr 03/24/21 03/24/21 03/25/21 16:30 20:08 07:57 Creatinine Est Cr Clr Drug Dosing Est GFR ( Amer) Est GFR (Non-Af Amer) POC Glucose 168 H 217 H 154 H 03/25/21 03/25/21 08:35 11:27 Creatinine 1.18 Est Cr Clr Drug Dosing 32.6 Est GFR ( Amer) 51.2 Est GFR (Non-Af Amer) 44.1 POC Glucose 169 H Diagnostic Findings repeat blood cx's remain negative from 03/23/21 PG Care Time/CCT Total # of Minutes Spent Total Time Spent with Patient: Total time spent is greater than 50% in coordination of care (as documented) at patient's floor/unit and/or counseling patient: Coding Level of Care Code 48688 Subseq Hosp Care Lvl 3 Diagnoses Subacute bacterial endocarditis (SBE) I33.0 Mitral valve vegetation I33.0 Septicemia A41.9 Bacteremia R78.81 Liver cirrhosis K74.60 HTN (hypertension) I10 Hypothyroidism E03.9 Kidney stone N20.0 Hypomagnesemia E83.42 Falls W19.XXXA T2DM (type 2 diabetes mellitus) E11.9 Cough R05.9 Folate deficiency E53.8 Anemia D64.9 Murmur R01.1 Edema R60.9 Tinea pedis B35.3 Metabolic encephalopathy G93.41
[2021-03-25] MEDS ORDERED: LORazepam 0.5 MG TAB PO PRN (13:04)
[2021-03-25] MEDS ORDERED: FUROSEMIDE 20 MG TAB PO ONE (13:15)
--- NOTE | 2021-03-25 18:46 | Cardiology Progress Note ---
Date of Service March 25, 2021 Assessment & Plan (1) Mitral valve vegetation: (2) Subacute bacterial endocarditis (SBE): (3) Bacteremia due to methicillin susceptible Staphylococcus aureus (MSSA): Plan: Patient doing well clinically. Infectious disease cardiology consultant recommended cefazolin 2 g every 8 hours for 6 weeks. Patient should have PICC line placed and arrangements for return to [facility]. She should have a follow-up REBEKA at some point near the end of her antibiotic regimen to document involution of vegetation (transthoracic echo would be inadequate, since the vegetation is masked by mitral annular calcification). Persistence of a large vegetation might prompt additional antibiotic treatment and/or consideration of surgical or catheter-based intervention to reduce the chance of mitral orifice occlusion. Will continue to follow along with you. Admission and Anticipated Discharge Date Admission Date: March 18, 2021 Subjective No complaints. She denies any chest pain, dyspnea, subjective palpitations, presyncope, or syncope. No focal neurologic symptoms. No dysphagia or sore throat. She feels well today and has a good appetite. Telemetry showed sinus rhythm in the 80-110 bpm range. Physical Exam Physical Exam: Mildly obese elderly white female in no distress. BP normotensive. Pulse 100 bpm and regular. Skin: No obvious stigmata of SBE, no ecchymoses or generalized lesions. HEENT: unremarkable. Neck: Jugular venous pulse at the clavicle, no carotid bruits. Lungs: clear bilaterally. Cardiac: regular/borderline tachycardic rhythm, accentuated S1, normal S2, 2/6 apical holosystolic murmur, no diastolic murmur or gallop. Abdomen: benign. Extremities: 1+ pretibial edema, pulses intact. Neurologic: normal affect and conversation nonfocal. Results & Data ([facility]) Vital Signs (Past 12 Hours) Vital Signs Temp Pulse Pulse Resp BP Pulse Ox 03/25/21 18:38 98.6 F 101 H 16 109/56 L 95 03/25/21 16:02 93 H 03/25/21 15:03 98.1 F 91 H 18 119/55 L 97 03/25/21 11:16 97.9 F 95 H 20 117/64 95 03/25/21 07:35 87 03/25/21 07:34 97.9 F 97 H 20 119/69 98 PG Care Time/CCT Total # of Minutes Spent Total Time Spent with Patient: Total time spent is greater than 50% in coordination of care (as documented) at patient's floor/unit and/or counseling patient: Coding Level of Care Code 35984 Subseq Hosp Care Lvl 3 Diagnoses Mitral valve vegetation I33.0 Subacute bacterial endocarditis (SBE) I33.0 Bacteremia due to methicillin susceptible Staphylococcus aureus (MSSA) R78.81; B95.61
[2021-03-25] MEDS: HEPARIN SOD 5,000 UNIT/0.5 ML VIAL SQ SCH (20:49)
[2021-03-25] MEDS: INSULIN GLARGINE SOLOSTAR 100 UNITS/ML 3 ML PEN SC SCH (22:54)
[2021-03-26] MEDS: ceFAZolin 2000MG 2,000 MG/15 ML SYR IV SCH ×3 (02:04→17:39)
[2021-03-26] MEDS: LEVOTHYROXINE SODIUM 100 MCG TABLET PO SCH (06:45)
[2021-03-26 08:49] LABS: Basophils # (auto) 0.02 K/uL (0-0.2); Basophils % (auto) 0.3 %; Eosinophils # (auto) 0.24 K/uL (0-0.5); Eosinophils % (auto) 3.4 %; Hematocrit (blood only) 33.4 % (37-47); Immature Granulocytes # (auto) 0.17 K/uL (0.00-0.02); Immature Granulocytes % (auto) 2.4 %; Lymphocytes % (auto) 27.3 %; Mean Corpuscular Hemoglobin 24.8 pg (25-34); Mean Corpuscular Hgb Conc 29.9 g/dL (32-36); Mean Corpuscular Volume 82.9 fL (80-100); Mean Platelet Volume 11.1 fL (7.4-10.4); Monocytes # (auto) 0.72 K/uL (0.11-0.59); Monocytes % (auto) 10.3 %; Neutrophils # (auto) 3.92 K/uL (1.4-6.5); Neutrophils % (auto) 56.3 %; Platelet Count 192 K/uL (130-400); RDW Coefficient of Variation 17.9 % (11.5-14.5); RDW Standard Deviation 55.4 fL (36.4-46.3); Red Blood Count 4.03 M/uL (4.2-5.4); White Blood Count 6.97 K/uL (4.8-10.8)
[2021-03-26] MEDS: PANTOprazole 40 MG TAB PO SCH (09:20)
[2021-03-26] MEDS: FOLIC ACID 1 MG in SYRINGE 9.8 ML IV SCH (09:20)
[2021-03-26] MEDS: HEPARIN SOD 5,000 UNIT/0.5 ML VIAL SQ SCH ×2 (09:20→20:46)
[2021-03-26] MEDS: MAGNESIUM OXIDE 400 MG TAB PO SCH ×3 (09:20→20:45)
[2021-03-26] MEDS: ESCITALOPRAM OXALATE 10 MG TAB PO SCH (09:20)
[2021-03-26 09:21] LABS: BUN Creatinine Ratio 13.1 (10-20); Calcium 9.2 mg/dl (8.5-10.1); Creatinine Clr Calc Pharmacy 30.4 ml/min; Est GFR (African American) 47.3 ml/min; Est GFR (Non-African American) 40.8 ml/min; Potassium 3.7 mmol/L (3.5-5.1)
[2021-03-26] MEDS: KETOCONAZOLE 2% CR 15 GM TUBE EXT SCH ×2 (09:21→20:57)
[2021-03-26] MEDS: INSULIN ASPART 100 UNITS/ML 3 ML PEN SC SCH ×4 (09:22→20:47)
[2021-03-26] MEDS ORDERED: POTASSIUM CHLORIDE CRTAB 20 MEQ TABCR PO STA (11:44)
--- NOTE | 2021-03-26 11:46 | Hospitalist Progress Note ---
Date of Service March 26, 2021 Assessment & Plan (1) Subacute bacterial endocarditis (SBE): Plan: MSSA SBE of mitral valve. source - likely the skin ulcers of right baires (developed these ~1 month ago). will need at least 6 weeks of IV abx therapy - ID advising ancef q8h. ID consult appreciated. appreciate cardiology consultation. will need cardiology f/u post-d/c. son reports recent altered MS - could simply be delirium from her septicemia/SBE. can't exclude septic emboli to the brain - thus, ordered MRI brain - patient tried twice to get in the scanner but w/o success due to severe claustrophia. of note - patient does not have any hardware in joints, no pacer, etc repeat blood cx's from 03/23 remain neg. PICC consent completed; PICC line attempt today and again tomorrow (will have to hydrate overnight to see if vessels are large enough for placement). son wanting pt to return to [place] to complete abx as that is her permanent home. spoke with PCP's office - this is possible per PCP in [place]. Social work here to reach out to PCP's office to work on Home health, IV abx, etc. (2) Mitral valve vegetation: Plan: c/w SBE - see above. splenic lesions likely septic emboli. (3) Septicemia: Plan: During previous admission (02/25 to 03/02) was diagnosed with MSSA bacteremia. Source ? was presumed to be the urinary tract in the setting of an obstructing renal stone s/p stent placement. however, urine culture during that admission and also during this admission w/o staph or other pathogen. She now has recurrent MSSA bacteremia/septicemia despite IV abx course following that February admission. WBC count has improved with appropriate IV abx (ancef). Suspect she may have seeded the blood via the skin on right baires (ulcers x 2). She has REBEKA-confirmed endocarditis of mitral valve. At this time no indication for surgical intervention. see discussion above. ID consult appreciated. Cards consult appreciated. (4) Bacteremia: Plan: doubt urinary tract as source skin the most likely source repeat blood cx's remain negative (5) Liver cirrhosis: Plan: likely the cause of her LE edema patient aware of dx son made aware of this suspected diagnosis etiology? fatty liver --> GLASER? lasix 20mg po x 1 today bmp am (6) HTN (hypertension): Plan: BPs controlled today OFF of her usual meds follow (7) Hypothyroidism: Plan: TSH 1.9 in February 2021 Continue levothyroxine 100 mcg PO daily (8) Kidney stone: Plan: RIGHT. s/p stent placement during prior admission. Ureteral stent in proper positioning on most recent CT Urology consult appreciated; no plans for stent replacement this admission treat SBE and septicemia in meantime repeat urine cx this admission negative (9) Hypomagnesemia: Plan: resolved (10) Falls: Plan: PT/OT (11) T2DM (type 2 diabetes mellitus): Plan: a1c 7.3% last admission cont novolog SSI (12) Cough: Plan: recent imaging w/o pneumonia COVID testing negative o2 sats wnl cough largely resolved (13) Folate deficiency: Plan: replace 1mg IV/PO daily x 30 days (14) Anemia: Plan: folate def blood draws from back to back admissions and likely SBE is the biggest culprit trend H/H every 2-3 days for stability (15) Murmur: Plan: 2nd to SBE with resulting MR (16) Edema: Plan: suspect 2nd to cirrhosis recent 2D echo with preserved EF and she otherwise does not appear volume overloaded obtained LE venous dopplers - NEGATIVE for DVT lasix 20mg po x 1 prn (17) Tinea pedis: Plan: ketoconazole cream BID to both feet (18) Metabolic encephalopathy: Plan: 2nd to #1, #3 resolved Plan: VTE prophylaxis - heparin 5000 units SQ BID son in [place] updated again today he can come and worm picker patient this weekend if she is ready for d/c then discussed care with cardiology and social work along with pt's PCP office in [facility] total time today 70 minutes - complex care coordination as noted above (calls to [facility], social work discussion, call to son, PICC line team discussion, etc) Admission and Anticipated Discharge Date Admission Date: March 18, 2021 Subjective no events overnight tele normal eating fair - this has been typical while here no new complaints anxious to get back to [place] PICC line team attempted PICC this afternoon - vessels were too small, will try again tomorrow I called and spoke with the pt's PCP office in [facility] spoke with their PA they are agreeable to following labs, etc and ordering home health services Review of Systems Review of Systems: gen - fatigue, poor appetite; no fevers, no chills CV - no cp pulm - no dyspnea today GI - no N/V/Abd pain Physical Exam Physical Exam: gen - sitting in chair comfortably, NAD, pleasant mouth - MMM, no lesions neck - no JVD heart - 3/6 systolic murmur LSB; RRR, s1 s2 - murmur unchanged lungs - CTA b/l abd - soft NT ND BS+; no HSM ext - <1+ edema b/l feet and ankles only, pulses 2+ b/l psych - a/o x 3 Results & Data Results & Data ([facility]) Vital Signs (Past 12 Hours) Vital Signs Temp Pulse Pulse Resp BP Pulse Ox 03/26/21 09:00 92 H 03/26/21 06:51 36.5 C 91 H 20 116/68 96 03/26/21 04:14 36.4 C L 78 18 109/65 97 03/26/21 00:54 95 H 03/26/21 00:26 37.0 C 100 H 20 116/64 94 Laboratory Results Laboratory Results - last 24 hr 03/25/21 03/25/21 03/26/21 17:00 20:11 07:50 WBC RBC Hgb Hct MCV MCH MCHC RDW Std Deviation RDW Coeff of Angelica Plt Count MPV Immature Gran % (Auto) Neut % (Auto) Lymph % (Auto) [place] % (Auto) Eos % (Auto) Baso % (Auto) Neut # (Auto) Lymph # (Auto) [place] # (Auto) Eos # (Auto) Baso # (Auto) Immature Gran # (Auto) Sodium Potassium Chloride Carbon Dioxide Anion Gap BUN Creatinine Est Cr Clr Drug Dosing Est GFR ( Amer) Est GFR (Non-Af Amer) BUN/Creatinine Ratio Glucose POC Glucose 158 H 223 H 115 H Calcium 03/26/21 03/26/21 08:00 08:00 WBC 6.97 RBC 4.03 L Hgb 10.0 L Hct 33.4 L MCV 82.9 MCH 24.8 L MCHC 29.9 L RDW Std Deviation 55.4 H RDW Coeff of Angelica 17.9 H Plt Count 192 MPV 11.1 H Immature Gran % (Auto) 2.4 Neut % (Auto) 56.3 Lymph % (Auto) 27.3 [place] % (Auto) 10.3 Eos % (Auto) 3.4 Baso % (Auto) 0.3 Neut # (Auto) 3.92 Lymph # (Auto) 1.90 [place] # (Auto) 0.72 H Eos # (Auto) 0.24 Baso # (Auto) 0.02 Immature Gran # (Auto) 0.17 H Sodium 137 Potassium 3.7 Chloride 102 Carbon Dioxide 27 Anion Gap 8.0 BUN 17 Creatinine 1.26 H Est Cr Clr Drug Dosing 30.4 Est GFR ( Amer) 47.3 Est GFR (Non-Af Amer) 40.8 BUN/Creatinine Ratio 13.1 Glucose 130 H POC Glucose Calcium 9.2 Diagnostic Findings blood cultures from 03/23 negative PG Care Time/CCT Total # of Minutes Spent Total Time Spent with Patient: Total time spent is greater than 50% in coordination of care (as documented) at patient's floor/unit and/or counseling patient: Prolonged Care Time Prolonged Care Time: Yes 70 Coding Level of Care Code 01410 Subseq Hosp Care Lvl 3 (25 - SIGNIFICANT, SEPARATELY IDENTIFIABLE ) Diagnoses Subacute bacterial endocarditis (SBE) I33.0 Mitral valve vegetation I33.0 Septicemia A41.9 Bacteremia R78.81 Liver cirrhosis K74.60 HTN (hypertension) I10 Hypothyroidism E03.9 Kidney stone N20.0 Hypomagnesemia E83.42 Falls W19.XXXA T2DM (type 2 diabetes mellitus) E11.9 Cough R05.9 Folate deficiency E53.8 Anemia D64.9 Murmur R01.1 Edema R60.9 Tinea pedis B35.3 Metabolic encephalopathy G93.41 Additional Codes Prolonged Care Time - Prolonged Care Time: Yes ([id number]) Time Spent (min) 70
[2021-03-26] MEDS ORDERED: FUROSEMIDE 20 MG TAB PO ONE (12:00)
--- NOTE | 2021-03-26 15:10 | Cardiology Progress Note ---
Date of Service March 26, 2021 Assessment & Plan (1) Mitral valve vegetation: (2) Subacute bacterial endocarditis (SBE): (3) Bacteremia due to methicillin susceptible Staphylococcus aureus (MSSA): Plan: Patient doing well clinically. Antibiotic recommendations as per infectious disease credit consultant. Consider follow-up REBEKA at some point near the end of her antibiotic course to document involution of vegetation. Alternatively, if conservative management warranted, could check repeat blood cultures after her 6 weeks of antibiotic to exclude recurrent bacteremia.Patient doing well clinically. No active cardiac issues, will sign off. Please contact if patient has a change in her clinical status. Thank you. Admission and Anticipated Discharge Date Admission Date: March 18, 2021 Subjective No complaints. She denies chest pain, dyspnea, subjective palpitations, presyncope, or syncope. No neurologic symptoms. Telemetry showed sinus rhythm in the 90 bpm range. Physical Exam Physical Exam: No distress. BP low normal. Pulse 90 bpm and regular. Skin: No obvious stigmata of SBE, no ecchymoses or generalized lesions. HEENT: unremarkable. Neck: Jugular venous pulse at the clavicle, no carotid bruits. Lungs: clear bilaterally. Cardiac: regular/borderline tachycardic rhythm, accentuated S1, normal S2, 2/6 apical holosystolic murmur, no diastolic murmur or gallop. Abdomen: benign. Extremities: 1+ pretibial edema, pulses intact. Neurologic: normal affect and conversation nonfocal. Results & Data ([facility]) Vital Signs (Past 12 Hours) Vital Signs Temp Pulse Pulse Resp BP BP Pulse Ox 03/26/21 11:10 98.4 F 81 16 104/58 L 96 03/26/21 09:00 92 H 03/26/21 06:51 97.7 F 91 H 20 116/68 96 03/26/21 04:14 97.5 F L 78 18 109/65 97 Laboratory Results Normal electrolytes, BUN 17, creatinine 1.26 (up from 1.18). PG Care Time/CCT Total # of Minutes Spent Total Time Spent with Patient: Total time spent is greater than 50% in coordination of care (as documented) at patient's floor/unit and/or counseling patient: Coding Level of Care Code 02226 Subseq Hosp Care Lvl 3 Diagnoses Mitral valve vegetation I33.0 Subacute bacterial endocarditis (SBE) I33.0 Bacteremia due to methicillin susceptible Staphylococcus aureus (MSSA) R78.81; B95.61
[2021-03-26] MEDS: NORMOSOL-R 1,000 ML IV SCH (20:44)
[2021-03-26] MEDS: INSULIN GLARGINE SOLOSTAR 100 UNITS/ML 3 ML PEN SC SCH (20:46)
[2021-03-27] MEDS: ceFAZolin 2000MG 2,000 MG/15 ML SYR IV SCH ×4 (01:50→21:24)
[2021-03-27] MEDS: LEVOTHYROXINE SODIUM 100 MCG TABLET PO SCH (06:10)
[2021-03-27] MEDS: ESCITALOPRAM OXALATE 10 MG TAB PO SCH (08:12)
[2021-03-27] MEDS: MAGNESIUM OXIDE 400 MG TAB PO SCH (08:12)
[2021-03-27] MEDS: PANTOprazole 40 MG TAB PO SCH (08:13)
[2021-03-27] MEDS: FOLIC ACID 1 MG in SYRINGE 9.8 ML IV SCH (08:14)
[2021-03-27] MEDS: KETOCONAZOLE 2% CR 15 GM TUBE EXT SCH ×2 (08:14→21:24)
[2021-03-27] MEDS: HEPARIN SOD 5,000 UNIT/0.5 ML VIAL SQ SCH ×2 (08:18→21:23)
[2021-03-27] MEDS: INSULIN ASPART 100 UNITS/ML 3 ML PEN SC SCH ×4 (08:33→21:24)
[2021-03-27 08:54] LABS: Creatinine Clr Calc Pharmacy 30.2 ml/min; Est GFR (African American) 47.7 ml/min; Est GFR (Non-African American) 41.2 ml/min
[2021-03-27] MEDS: NORMOSOL-R 1,000 ML IV SCH (11:29)
[2021-03-27 13:17] LABS: BUN Creatinine Ratio 12.8 (10-20); Calcium 8.8 mg/dl (8.5-10.1); Creatinine Clr Calc Pharmacy 28.4 ml/min; Est GFR (African American) 44.3 ml/min; Est GFR (Non-African American) 38.2 ml/min
[2021-03-27] MEDS ORDERED: POTASSIUM CHLORIDE 10 MEQ TABCR PO STA (18:49)
[2021-03-27] MEDS ORDERED: FUROSEMIDE 20 MG TAB PO ONE (18:59)
[2021-03-27] MEDS: INSULIN GLARGINE SOLOSTAR 100 UNITS/ML 3 ML PEN SC SCH (21:23)
[2021-03-27] MEDS: HYDROCORTISONE HC 2.5% CRM 30GM TUBE EXT SCH (21:44)
--- NOTE | 2021-03-27 22:20 | Hospitalist Progress Note ---
Date of Service March 27, 2021 Assessment & Plan (1) Subacute bacterial endocarditis (SBE): Plan: MSSA SBE of mitral valve. source - likely the skin ulcers of right baires (developed these ~1 month ago). will need at least 6 weeks of IV abx therapy - ID advising ancef q8h. ID consult appreciated. appreciate cardiology consultation. will need cardiology f/u post-d/c. son reports recent altered MS - could simply have been delirium from her septicemia/SBE. can't exclude septic emboli to the brain - thus, ordered MRI brain - patient tried twice to get in the scanner but w/o success. of note - patient does not have any hardware in joints, no pacer, etc repeat blood cx's from 03/23 remain neg. PICC completed today. son wanting pt to return to [place] to complete abx as that is her permanent home. spoke with PCP's office - this is possible per PCP in [place]. Social work with PCP's assistance has set up home health, etc for [place]. Will receive first dose of IV abx tomorrow at her home. (2) Mitral valve vegetation: Plan: c/w SBE - see above. splenic lesions likely septic emboli. (3) Septicemia: Plan: During previous admission (02/25 to 03/02) was diagnosed with MSSA bacteremia. Source ? was presumed to be the urinary tract in the setting of an obstructing renal stone s/p stent placement. however, urine culture during that admission and also during this admission w/o staph or other pathogen. She now has recurrent MSSA bacteremia/septicemia despite IV abx course following that February admission. WBC count has improved with appropriate IV abx (ancef). Suspect she may have seeded the blood via the skin on right baires (ulcers x 2). She has REBEKA-confirmed endocarditis of mitral valve. At this time no indication for surgical intervention. see discussion above. ID consult appreciated. Cards consult appreciated. placed REBEKA on CD rom for patient to take back home to [place] (4) Bacteremia: Plan: doubt urinary tract as source skin the most likely source repeat blood cx's remain negative as above (5) Liver cirrhosis: Plan: likely the cause of her LE edema patient aware of dx son made aware of this suspected diagnosis etiology? fatty liver --> GLASER? bmp am 2-gram salt restriction at d/c lasix prn at d/c (6) HTN (hypertension): Plan: BPs controlled today OFF of her usual meds ideally should be on low-dose propranolol or nadalol - likely has portal HTN (7) Hypothyroidism: Plan: TSH 1.9 in February 2021 Continue levothyroxine 100 mcg PO daily (8) Kidney stone: Plan: RIGHT. s/p stent placement during prior admission. Ureteral stent in proper positioning on most recent CT Urology consult appreciated; no plans for stent replacement this admission treat SBE and septicemia in meantime repeat urine cx this admission negative will need urology consultation froylan upon return to [place] for stone management CT a/p placed on CD ROM for patient (9) Hypomagnesemia: Plan: resolved (10) Falls: Plan: PT/OT (11) T2DM (type 2 diabetes mellitus): Plan: a1c 7.3% last admission cont novolog SSI cont lantus low dose (12) Folate deficiency: Plan: replace 1mg IV/PO daily x 30 days (13) Anemia: Plan: folate def blood draws from back to back admissions and likely SBE is the biggest culprit repeat cbc on 03/26 acceptable with Hb 10 (14) Murmur: Plan: 2nd to SBE with resulting MR (15) Edema: Plan: suspect 2nd to cirrhosis recent 2D echo with preserved EF and she otherwise does not appear volume overloaded obtained LE venous dopplers - NEGATIVE for DVT lasix prn at discharge (16) Tinea pedis: Plan: ketoconazole cream BID to both feet (17) Metabolic encephalopathy: Plan: 2nd to #1, #3 resolved Plan: VTE prophylaxis - heparin 5000 units SQ BID son in [place] updated again today he can come and garbage pick up man patient tomorrow AM discussed care with cardiology and social work along with pt's PCP office in [facility] all HH services and f/u appt with PCP have been arranged d/c home to [facility] in am hemorrhoids - anusol TID likely from cirrhosis Admission and Anticipated Discharge Date Admission Date: March 18, 2021 Subjective pt sitting in chair comfortably no complaints excited she can go home to [place] tomorrow son to come in am to pick her up c/o hemorrhoids and requests something for such no dyspnea at rest; mild CHRIS with walking no cough no abd pain appetite fair at best PICC line was placed successfully this am following IV fluids overnight Review of Systems Review of Systems: gen - fatigue, poor appetite; no fever CV - no chest pain pulm - no cough GI - no N/V Physical Exam Physical Exam: gen - sitting in chair comfortably, NAD, pleasant mouth - MMM, no lesions neck - no JVD heart - 3/6 systolic murmur LSB; RRR, s1 s2 - murmur unchanged lungs - CTA b/l, minimal dry rales bases abd - soft NT ND BS+; no HSM; perhaps mild ascites ext - 1+ edema b/l psych - a/o x 3 Results & Data Results & Data ([facility]) Vital Signs (Past 12 Hours) Vital Signs Temp Pulse Pulse Pulse Resp BP Pulse Ox 03/27/21 19:00 37 C 93 H 18 128/62 96 03/27/21 18:00 102 H 03/27/21 15:40 36.9 C 99 H 18 111/62 93 03/27/21 13:45 36.8 C 75 17 126/66 96 Laboratory Results Laboratory Results - last 24 hr 03/27/21 03/27/21 03/27/21 07:32 07:37 11:43 Sodium Potassium Chloride Carbon Dioxide Anion Gap BUN Creatinine 1.25 H Est Cr Clr Drug Dosing 30.2 Est GFR ( Amer) 47.7 Est GFR (Non-Af Amer) 41.2 BUN/Creatinine Ratio Glucose POC Glucose 127 H 130 H Calcium 03/27/21 03/27/21 03/27/21 12:49 16:22 20:18 Sodium 135 L Potassium 4.0 Chloride 100 Carbon Dioxide 25 Anion Gap 9.0 BUN 17 Creatinine 1.33 H Est Cr Clr Drug Dosing 28.4 Est GFR ( Amer) 44.3 Est GFR (Non-Af Amer) 38.2 BUN/Creatinine Ratio 12.8 Glucose 200 H POC Glucose 180 H 203 H Calcium 8.8 PG Care Time/CCT Total # of Minutes Spent Total Time Spent with Patient: Total time spent is greater than 50% in coordination of care (as documented) at patient's floor/unit and/or counseling patient: Coding Level of Care Code 93723 Subseq Hosp Care Lvl 3 Diagnoses Subacute bacterial endocarditis (SBE) I33.0 Mitral valve vegetation I33.0 Septicemia A41.9 Bacteremia R78.81 Liver cirrhosis K74.60 HTN (hypertension) I10 Hypothyroidism E03.9 Kidney stone N20.0 Hypomagnesemia E83.42 Falls W19.XXXA T2DM (type 2 diabetes mellitus) E11.9 Folate deficiency E53.8 Anemia D64.9 Murmur R01.1 Edema R60.9 Tinea pedis B35.3 Metabolic encephalopathy G93.41
[2021-03-28] MEDS: LEVOTHYROXINE SODIUM 100 MCG TABLET PO SCH (06:11)
[2021-03-28] MEDS: ceFAZolin 2000MG 2,000 MG/15 ML SYR IV SCH (06:11)
[2021-03-28] MEDS: HYDROCORTISONE HC 2.5% CRM 30GM TUBE EXT SCH (07:27)
[2021-03-28] MEDS: KETOCONAZOLE 2% CR 15 GM TUBE EXT SCH (07:27)
[2021-03-28] MEDS: MAGNESIUM OXIDE 400 MG TAB PO SCH (07:28)
[2021-03-28] MEDS: ESCITALOPRAM OXALATE 10 MG TAB PO SCH (07:28)
[2021-03-28] MEDS: HEPARIN SOD 5,000 UNIT/0.5 ML VIAL SQ SCH (07:28)
[2021-03-28] MEDS: PANTOprazole 40 MG TAB PO SCH (07:28)
[2021-03-28] MEDS: FOLIC ACID 1 MG in SYRINGE 9.8 ML IV SCH (07:28)
[2021-03-28 08:11] LABS: Hematocrit (blood only) 32.5 % (37-47); Hemoglobin 9.7 g/dL (12.0-16.0); Mean Corpuscular Hemoglobin 24.6 pg (25-34); Mean Corpuscular Hgb Conc 29.8 g/dL (32-36); Mean Corpuscular Volume 82.3 fL (80-100); Mean Platelet Volume 11.2 fL (7.4-10.4); Platelet Count 227 K/uL (130-400); RDW Coefficient of Variation 17.8 % (11.5-14.5); RDW Standard Deviation 53.9 fL (36.4-46.3); Red Blood Count 3.95 M/uL (4.2-5.4); White Blood Count 9.61 K/uL (4.8-10.8)
[2021-03-28] MEDS: INSULIN ASPART 100 UNITS/ML 3 ML PEN SC SCH (08:35)
[2021-03-28 08:42] LABS: BUN Creatinine Ratio 12.2 (10-20); Calcium 9.4 mg/dl (8.5-10.1); Creatinine Clr Calc Pharmacy 27.3 ml/min; Est GFR (Non-African American) 36.2 ml/min; Magnesium 1.7 mg/dl (1.8-2.4); Potassium 3.9 mmol/L (3.5-5.1)
[2021-03-28] MEDS ORDERED: MAGNESIUM SULFATE / D5W 1 GM/100 ML BAG IV ONE (09:15)
--- NOTE | 2021-03-28 11:00 | Discharge Summary ---
Date of Service date of admission - March 18, 2021 date of discharge - March 28, 2021 Admission HPI Per Admitting Provider Princess Alcantara is a 80 year old female who presents to the ER with fever. She was recently admitted from February 25 to due to falling, weakness and confus ion and was diagnosed with MSSA. She had a kidney stone on that admission although no convincing infection was behind that stone. She underwent ureteral stent insertion. She did not have a REBEKA. Decided upon 2 weeks of IV Ancef as treatment which concluded on March 13. She had been doing better at home up until the last few days. She has been developing more of a cough and started vomiting this morning with a fever (99.4 degrees Fahrenheit) therefore returned to the ER. The patient is unable to given me any significant history and this was taken from the EHR notes and her son over the phone. She reports feeling generally fatigued. In the ER she has a fever of 37.8 degrees celsius. WBC increased to 16.98 from prior 9.73. She was referred to medicine for admission and management of weak ness, shortness of breath and infection. Principal Diagnosis 1. MSSA bacteremia/septicemia 2. 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 Probable splenic septic emboli 4. Cirrhosis - newly diagnosed 5. Right sided kidney stones s/p ureteral stent on 02/25/21 Discharge Exam gen - sitting in chair comfortably, NAD, pleasant mouth - MMM, no lesions neck - no JVD heart - 3/6 systolic murmur LSB; RRR, s1 s2 - murmur unchanged lungs - CTA b/l, minimal dry rales bases abd - soft NT ND BS+; no HSM; perhaps mild ascites ext - 1+ edema b/l psych - a/o x 3 skin - tinea pedis b/l feet, no generalized rash; there are 2, small, healed/scabbed ulcers on proximal baires on right leg neuro - strength 5/5 x 4 extremities, no facial droop; speech clear; no asterixis Discharge Data Allergies Allergy/AdvReac Type Severity Reaction Status Date / Time Penicillins Allergy Intermediate Hives Unverified 02/25/21 11:30 metronidazole [From Flagyl] Allergy Mild Nausea Unverified 02/25/21 11:31 Consultations [facility] Urology Anesthesiology [facility] Cardiology [facility] Infectious Diseases PT, OT IV team for PICC line placement Procedures Performed Operation Date: 03/24/21 10:00 Actual Procedures p Echo Transesophageal - Cody Montejo MD s Echo Doppler Complete - Cody Montejo MD s Echo Color Flow - Cody Montejo MD * EF 60-65% * moderate size vegetation on mitral valve - 0.5cm x 1.5cm mobile mass attached to the atrial side of the anterior mitral leaflet, most c/w vegetation * mild mitral regurgitation * mitral inflow velocity shows a bimodal pattern, suggesting transient functional mid diastolic mitral stenosis from the vegetation LUE PICC Line placement Ordered Studies Chest X-Ray 03/18/21 12:33 XR chest 1V portable CLINICAL HISTORY: Dyspnea TECHNIQUE: Single frontal radiograph of the chest was obtained. Comparison: Comparison is made to chest one view 03/01/2021 FINDINGS: No lines and tubes are seen. The cardiomediastinal silhouette is normal. The lungs are clear. No evidence of pleural effusion or pneumothorax. 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 IMPRESSION: No acute chest disease. ACT 112: Negative or not required by law. Electronically signed by: Seng Cleveland M.D. 03/18/2021 2:01 PM Abdomen/Pelvis CT 03/18/21 13:44 CT OF THE ABDOMEN AND PELVIS WITH CONTRAST CLINICAL HISTORY: fever, weak, recent stone/stent COMPARISON STUDY: CT of the abdomen and pelvis February 25, 2021. Right upper quadrant ultrasound February 26, 2021. TECHNIQUE: Following IV administration of 114 mL of Optiray, axial images of the abdomen and pelvis were obtained from the lung bases to the proximal femurs. Images were reviewed in the axial, sagittal, and coronal planes. IV contrast was administered without complication. Automated exposure control was utilized for the study. A dose lowering technique was utilized adhering to the principles of ALARA. FINDINGS: Please note that the chest CT will be reported separately. No pneumatosis, free air or portal venous gas is present. The liver is cirrhotic. No hepatic lesions are identified. Sensitivity for detection of hypervascular lesions is diminished on this exam. Gallstones within the gallbladder are noted. Gallbladder is mildly distended. This is unchanged. There is trace abdominal ascites. There is no pancreatic ductal dilatation. Apparent stranding adjacent to the celiac axis is unchanged. Trace stranding along the pancreatic tail is unchanged. Moderate splenomegaly is noted. Note is made of several peripheral hypointense foci within the spleen which measure up to 3.9 cm. There is an adjacent 2.7 cm linear hypodense focus within the superior aspect of the spleen. There is no perisplenic fluid. These findings were not evident on prior CT. There is no evidence for a bowel obstruction. Colonic diverticulosis is noted without evidence for acute diverticulitis. Right ureteral stent is in place. There is no hydronephrosis. Small bilateral renal calculi are noted. Note is made of 3 distal right ureteral calculi/fragments which measure up to 7 x 4 mm. There is moderate renal cortical thinning. There is no renal abscess. Nephrograms are symmetric. IMPRESSION: 1. Right ureteral stent in place. No hydronephrosis. Three distal right ureteral calculi/fragments which measure up to 7 x 4 mm. 2. Several peripheral hypoechoic enhancing foci within the spleen. These favor splenic infarcts. 2.7 cm linear hypodensity within the superior aspect the spleen also likely reflects a splenic infarct however a splenic laceration could appear similar. No perisplenic fluid. If progressive abdominal pain, follow-up abdominal CT is recommended. 3. Cirrhosis. Splenomegaly and small amount of ascites suggestive of portal hypertension. 4. Cholelithiasis and gallbladder distention, unchanged. These findings do not strongly suggest acute cholecystitis however right upper quadrant ultrasound is recommended if right upper quadrant pain. ACT 112: Negative or not required by law. Electronically signed by: Shelton Childers M.D. 03/18/2021 3:17 PM Chest CTA 03/18/21 13:44 CT angio chest PE protocol CLINICAL HISTORY: PE, sob, fever TECHNIQUE: Multidetector row helical CT of the chest was performed. Coronal and sagittal reformations were obtained. Automated dose lowering techniques and/or adjustment according to patient size were utilized for this exam. Comparison: Comparison is made to chest 02/25/2021 FINDINGS: Lungs and pleura: A 2 cm pulmonary hamartoma is seen on the right lower lobe. Bibasilar atelectasis is seen. Heart and pericardium: Cardiomegaly is seen with biatrial enlargement. Vessels: No evidence of pulmonary embolism. Mediastinum and kate: Unremarkable. Chest wall and lower neck: Unremarkable. Abdomen: For findings below the diaphragm, please refer to CT of the abdomen dated the same. Bones: Degenerative changes in the thoracic spine. IMPRESSION: 1. No evidence of pulmonary embolism. 2. Bilateral atelectasis versus scarring. 3. Right lower lobe hamartoma. ACT 112: Negative or not required by law. Electronically signed by: Seng Cleveland M.D. 03/18/2021 2:30 PM Venous Doppler Study 03/23/21 13:48 BILATERAL LOWER EXTREMITY VENOUS DOPPLER HISTORY: Acute pain and swelling of the lower legs b/l LE edema, eval DVT COMPARISON STUDY: None. FINDINGS: There is normal compressibility, flow, and augmentation within the bilateral lower extremity deep venous systems. 2.0 x 2.5 x 7.0 cm left-sided Tomlinson's cyst. Subcutaneous edema of the lower legs. IMPRESSION: No DVT within the right or left lower extremity. ACT 112: Negative or not required by law. Electronically signed by: Ismael Thomson M.D. 03/23/2021 6:58 PM Hospital Course (1) Subacute bacterial endocarditis (SBE): Patient's admission blood cultures grew MSSA. Repeat blood cultures from 03/23/2021 were negative ensuring sterility. Due to recurrent staph aureus bacteremia [facility] was consulted. REBEKA indeed was positive for a large vegetation on the mitral valve consistent with SBE. Source - likely the skin ulcers of right baires (developed these ~1 month ago). Patient will need at least 6 weeks of IV antibiotics therapy - infectious disease advising ancef 2 grams IV q8h via LUE PICC line. While on her IV antibiotic course she will need weekly CBC with diff, CMP, sed rate, and crp. Of note - the patient does not have any indwelling hardware such as artificial joints, pacemaker, etc. The patient's son reported recent altered mental status. This could have simply have been delirium from her septicemia/SBE. I could not exclude septic emboli to the brain - thus, ordered MRI brain - however, the patient tried twice to complete the MRI but this was not successful . Despite the above the patient's neurological exam was normal and mental status was intact at time of discharge. (2) Mitral valve vegetation: c/w SBE - see above. splenic lesions seen on recent CT abd/pelvis were likely septic emboli. (3) Septicemia: During the patient's previous admission (02/25 to 03/02) the patient was diagnosed with MSSA bacteremia. Source for the MSSA was presumed to be the urinary tract in the setting of an obstructing renal stone s/p stent placement. However, her urine culture during that admission and also during this admission were both negative. She now has recurrent MSSA bacteremia/septicemia despite a 2-week antibiotic course following that February admission. We now know her recurrent bacteremia was because of REBEKA-confirmed endocarditis of the mitral valve. At this time no indication for surgical intervention. See discussion above in #1. The patient's REBEKA was placed on CD-ROM for the patient to take back home to [place]. (4) Bacteremia: doubt urinary tract as source skin the most likely source repeat blood cx's from 03/23/21 were negative as mentioned above (5) Liver cirrhosis: NEW diagnosis based on CT imaging. Patient and her son were made aware of this suspected diagnosis. Etiology? fatty liver --> GLASER? other? At discharge advised a 2-gram salt restricted diet and lasix with K/mag supplementation. Recommend consultation with Gastroenterology upon return to [place] for additional work-up. At discharge she was largely compensated except for mild LE edema. (6) HTN (hypertension): BPs were controlled during the stay off of most of her medications. At discharge resumed low-dose metoprolol 12.5mg BID. May need to change this to propranolol or nadalol due to concomitant cirrhosis. Valsartan-HCTZ was discontinued. (7) Hypothyroidism: TSH 1.9 in February 2021 Continue levothyroxine 100 mcg PO daily (8) Kidney stone: RIGHT. s/p stent placement during prior admission (02/25/2021). Ureteral stent in proper positioning on most recent CT. Urology was consulted during this admission and advised against any stone intervention or stent replacement until the MSSA septicemia/SBE has been adequately treated. Repeat urine cx this admission was negative. Will need urology consultation upon return to [place] for stone and stent management. CT a/p placed on CD-ROM for patient at discharge. (9) Hypomagnesemia: resolved with supplementation. prescription for PRN use of mag oxide given to use when lasix is taken for LE edema. (10) Falls: PT/OT were consulted while here. Falls were likely due to weakness in the setting of her septicemia/SBE. She would likely benefit from home PT/OT or outpatient PT/OT upon return to [place]. (11) T2DM (type 2 diabetes mellitus): Hba1c 7.3% Required lantus/novolog during her stay. Upon discharge recommended ongoing use of Tresiba insulin. (12) Folate deficiency: Folate level was 5. Replace 1mg PO daily x 30 days. At conclusion of course advise repeat folate level. B12 level was wnl (1430). (13) Anemia: folate deficiency, blood draws from back to back admissions, and SBE are likely all contributing. repeat cbc on 03/26/21 acceptable with Hb 10. (14) Murmur: 2nd to SBE with resulting mitral regurgitation. (15) Edema: suspect 2nd to cirrhosis recent 2D echo with preserved EF and she otherwise does not appear volume overloaded obtained LE venous dopplers - NEGATIVE for DVT lasix prn at discharge (16) Tinea pedis: ketoconazole cream BID to both feet (17) Metabolic encephalopathy: 2nd to #1, #3 resolved (18) Acute kidney injury: 2nd to septicemia. Peak Cr 1.7. Discharge Cr 1.3. VTE prophylaxis during the stay - heparin 5000 units SQ BID at discharge the patient is returning to [place] with her son. social work has coordinated with her PCP's office in [place] for home IV antibiotics, follow-up appointments, etc. Total Time Total Time Spent Total Time Spent (In Minutes): 60 Discharge Plan Discharge Items Patient Disposition: Home - Home Health Services Reason For Visit: SUSPECTED BACTEREMIA Discharge Diagnosis: 1. Staph Aureus Bacteremia/Septicemia 2. Endocarditis of Mitral Valve (staph aureus infection of the valve) 3. Cirrhosis of the liver - exact cause uncertain; due to fatty liver? other? 4. Right-sided kidney stones with placement of Right Ureteral stent on 02/25/21 5. Recent confusion - due to #1, #2 Activity: As commented below Activity Comment: gradually increase activities as tolerated over the next 7-10 days Non-emergency contact: Primary Care Provider Call non-emergency contact if: you have any medication questions, your symptoms worsen and you have a fever Follow-up/Referrals: Minoo Richter [Other] - 04/01/21 4:00 pm ([facility] ([place] Diet: Carb Consistent or DM2 and Low Sodium (2gm) Addtl Attending Provider Instructions: Mrs Alcantara, You were hospitalized for the problems listed above in the section titled "discharge diagnoses." Your bloodstream infection (also known as bacteremia or septicemia) was caused by a bacterium called staph aureus. Staph bacteria typically live on your skin. I can't tell you exactly how it got into your bloodstream but I suspect the 2 sores on your right leg may have been culprit. Unfortunately the staph infection took up residence in your heart and infected your mitral valve. Infection of the heart valve is called "endocarditis." You were seen by cardiology and infectious diseases for the endocarditis. They are recommending 6 weeks of IV antibiotics. This course will take you through the end of April. During this time period you will need weekly blood work to ensure the antibiotic is working well and without side effects. Your doctors back in [place] will monitor your blood work. Your antibiotics will be given via your left arm PICC line. In addition, we found evidence of cirrhosis of the liver on your recent CT scans. The cause of the cirrhosis is uncertain. Some of the fluid in your legs is likely from the cirrhosis. We checked ultrasounds of both legs and we did not find DVT blood clots causing the swelling. Finally, you still have your right-sided ureteral stent in the right ureter because of kidney stones on that side. Recommendations - 1. endocarditis/heart valve infection - * 6-week course of IV antibiotics three times a day * you will need to establish care with a glazing machine operator in [place] to monitor the mitral valve infection * take probiotics (lactinex) twice daily to prevent diarrhea from the antibiotics * keep the PICC line clean and dry; ok to shower but cover the PICC line with plastic wrap, a bag, etc. * please give the disc that is labeled "transesophageal echocardiogram" to the glazing machine operator 2. right-sided ureteral stent and kidney stones - * you will need to see urology back in [place] to ultimately have the s tones treated and the stent removed 3. cirrhosis - * please see a semiconductor wafers etch operator in [place] for the newly discovered cirrhosis * for fluid in your feet/legs you can take a water pill called "furosemide" (lasix) * take 20mg of furosemide each morning as needed for fluid/edema * if you take the furosemide you will also have to take magnesium and potassium at the same time * please check your weight every morning on the same scale; if you note that you have gained more than 2-3 pounds in 1-2 days please notify your doctors right away; this is typically a sign of water retention from the liver or your heart 4. for hemorrhoids - anusol cream up to 3 times each day for 7-10 days as needed. 5. for folic acid deficiency - take folic acid 1mg once daily for 30 days. 6. for athlete's foot of both feet - ketoconazole cream twice daily for 3-4 weeks (bottoms of both feet and inbetween toes). 7. high blood pressure - * please STOP your valsartan-hydrochlorothiazide * continue your metoprolol but LOWER the dose to 12.5mg twice daily (you had been taking a much larger dose) * I have given you a new prescription for the lower metoprolol dose * THROW out the 100mg tablets of the metoprolol that you have - this has been stopped 8. diabetes - * check your blood sugars twice daily * Tresiba insulin 5 units once daily 9. on your drive home back to [place] please stop about every 1 hour to stretch and walk a bit to prevent DVT blood clots in your legs. Of note - All prescriptions have been printed for you. Follow-up - * family doctor THIS WEEK as scheduled * you will need referrals to cardiology and gastroenterology Return to any hospital if - * you have fevers over 100 degrees * you have worsening shortness of breath * you have worsening fluid in your ankles/feet/legs and/or your abdomen * you have burning with urination, blood in the urine, side pain/kidney pain, etc * you have severe diarrhea * any other concerns It was our pleasure caring for you at [facility] and safe travels back to [place]! Dr Zhang Pending Studies at Discharge: No Stand-Alone Forms: My [facility] [employer], Smoking Cessation Medications and DC Order Prescriptions: New cefazolin 1 gram recon soln 2 g IV Q8H 42 Days Qty: 42 RF: 0 hydrocortisone [Proctosol HC] 2.5 % Cream With Perineal Applicator 1 applic EXT TID PRN (Reason: hemorrhoids) Qty: 30 RF: 0 magnesium oxide 400 mg (241.3 mg magnesium) Tablet 400 mg PO QAM PRN (Reason: when you take your furosemide) Qty: 30 RF: 0 ketoconazole 2 % Cream 1 applic EXT BID Qty: 45 RF: 1 furosemide [Lasix] 20 mg tablet 20 mg PO DAILY PRN (Reason: edema) Qty: 30 RF: 0 potassium chloride 20 mEq/15 mL liquid 10 meq PO DAILY PRN (Reason: for when you take your furosemide) Qty: 450 RF: 0 Lactinex 1 million cell tablet,chewable 1 tab PO BID Qty: 60 RF: 1 folic acid 1 mg tablet 1 mg PO DAILY Qty: 30 RF: 0 Continued escitalopram oxalate [Lexapro] 5 mg Tablet 5 mg PO QAM RF: 0 omeprazole 40 mg Capsule,Delayed Release(Dr/Ec) 40 mg PO DAILY RF: 0 levothyroxine 100 mcg Tablet 100 mcg PO QAM RF: 0 Changed metoprolol tartrate 25 mg tablet 12.5 mg PO BID Qty: 60 RF: 1 Tresiba FlexTouch U-100 100 unit/mL (3 mL) Insulin Pen 5 unit SUBCUT HS Qty: 0 RF: 0 Discontinued valsartan-hydrochlorothiazide 320-25 mg Tablet 1 tab PO DAILY RF: 0 Discharge Orders: Discharge Order (Routine); Ordered 03/28/21 Ordered By: Harpal Martinez/Other Patient Handouts: Understanding Cirrhosis, Having a Ureteral Stent, Understanding Kidney Stones, Infective Endocarditis Dc, Caring for Your PICC Dc, Understanding Infective Endocarditis Admission Data Admit Date/Time: 03/18/21 16:41 Attending Provider: Harpal Zhang Admit Provider: Harpal Deshpande Primary Care Provider: Moses Mallory Other Providers: Harpal Deshpande ; Daren Silveira ; [facility] ; Zachery Hastings ; Cody Montejo ; Joselito Jauregui ; Aliya Calle ; Trey Figueroa I. ; Madhu Perez II ; Darleen Kumar ; Rivera Cai ; Wesley Ny ; Deejay,Pretty Other Interventions: Discharge Summary Assessment (RN) Last Done: 03/28/21 11:04 Coding Level of Care Code D/C DAY MANAGEMENT >30 MINS Diagnoses Subacute bacterial endocarditis (SBE) I33.0 Mitral valve vegetation I33.0 Septicemia A41.9 Bacteremia R78.81 Liver cirrhosis K74.60 HTN (hypertension) I10 Hypothyroidism E03.9 Kidney stone N20.0 Hypomagnesemia E83.42 Falls W19.XXXA T2DM (type 2 diabetes mellitus) E11.9 Folate deficiency E53.8 Anemia D64.9 Murmur R01.1 Edema R60.9 Tinea pedis B35.3 Metabolic encephalopathy G93.41 Acute kidney injury N17.9
== END 2021-03-28 11:36 | disposition home health service (06) | DRG 871 ==
LOC: ED 12:13 → 2W 16:41 → SUATTDRO 16:41 → 2W 18:19